=== PATIENT | female | born 1930 | race Caucasian/White ===

== ENCOUNTER 2018-11-06 08:05 | Inpatient (IN) | payer MEDICARE, MEDICAID ==
[~2018-11-06] VITALS: Ht 147.3 cm; Wt 60.0 kg
[~2018-11-06 08:05] MED LIST: DONE10TA7; GABA100C; GLIP5TAB3; MAG-19; METF750T2; MULT1CAP57; OMEP20CA16; UDMOM
[2018-11-06] MEDS ORDERED: SOD CHLORIDE 0.9% 1,950 ML IV ONE (08:30)
--- NOTE | 2018-11-06 09:20 | ERD ---
ER Documentation Chief Complaint Chief Complaint ALOC SINCE THIS AM. BS READ HI. NO TRAUMA. NORMAL MENTAL STATUS PER STAFF HPI 88-year-old female who is full code presents from snf facility per the patient has chronic dementia but it appears to be she is more altered than normal over an unknown timeframe. The patient is noted to have an Accu-Chek greater than 500. The patient is a diabetic. Remainder of HPI is extremely limited. ROS All systems reviewed and are negative except as per history of present illness. Medications Home Meds Reported Medications Acetaminophen* (Acetaminophen*) 500 MG Extra Strength Tablet, 500 MG PO Q6H PRN for FOR FEVER>101, TAB 11/06/18 Magnesium Hydroxide/Al Hydrox (DAREN-MOX ANTACID SUSPENSION) 355 Ml Oral.susp, 30 ML PO Q6H 11/06/18 Megestrol Acetate* (Megace ES*) Unknown Strength Oral.susp, 10 ML PO BID, ML MEGACE 40MG/ML, STOP DATE 11/29/18 11/06/18 Amlodipine Besylate* (Norvasc*) 5 Mg Tablet, 5 MG PO BID, TAB HOLD FOR SBP<110 11/06/18 Memantine* (Namenda*) 10 Mg Tablet, 10 MG PO BID, #60 TAB 11/06/18 Metformin Hcl* (Metformin Hcl*) 500 Mg Tablet, 250 MG PO WITH BREAKFAST DINNE, #60 TAB 11/06/18 Pantoprazole* (Pantoprazole*) 40 Mg Tablet.dr, 40 MG PO AC BREAKFAST, TAB 11/06/18 Hydralazine Hcl* (Hydralazine Hcl*) 25 Mg Tab, 25 MG PO Q8 PRN for FOR SBP>150, #90 TAB 11/06/18 Glucagon,Human Recombinant (Glucagon Emergency Kit) 1 Mg Kit, 1 MG IJ Q8H PRN for FOR GLUCOSE<60MG/DL, KIT 11/06/18 Ondansetron Hcl* (Zofran*) 4 Mg Tab, 4 MG PO Q4H PRN for NAUSEA AND OR VOMITING, TAB 11/06/18 Dextran 70/Hypromellose/Pf (ARTIFICIAL TEARS DROPS) 1 Each Droperette, 1 EACH OP Q12H 11/06/18 Metoprolol Tartrate* (Lopressor*) 25 Mg Tab, 25 MG PO BID, #60 TAB HOLD IF SBP<120 OR HR<60 11/06/18 Insulin Detemir (Levemir Flextouch) 100 Unit/1 Ml Insuln.pen, 10 UNIT SQ QHS, EA 11/06/18 Gabapentin* (Gabapentin*) 300 Mg Capsule, 300 MG PO QHS, #60 CAP 11/06/18 Atorvastatin Calcium (Atorvastatin Calcium) 10 Mg Tablet, 10 MG PO QHS, #30 TAB 11/06/18 Donepezil* (Aricept*) 10 Mg Tablet, 10 MG PO DAILY, TAB 11/06/18 Cholecalciferol (Vitamin D3) 5,000 Unit Tablet, 5000 UNIT PO DAILY, TAB 11/06/18 Multivitamin with Minerals (Multivitamins with Minerals) 1 Each Tablet, 1 EACH PO DAILY, TAB 11/06/18 Folic Acid* (Folic Acid*) 1 Mg Tablet, 1 MG PO DAILY, TAB 11/06/18 Ferrous Sulfate* (Ferrous Sulfate*) 325 Mg Tabec, 325 MG PO DAILY, TAB 11/06/18 Cranberry Fruit Concentrate (CRANBERRY) 450 Mg Capsule, 405 MG PO DAILY, CAP 11/06/18 Docusate Sodium* (Colace*) 100 Mg Capsule, 100 MG PO DAILY, #30 CAP 11/06/18 Aspirin* (Aspirin* EC) 81 Mg Tablet.dr, 81 MG PO DAILY, TAB 11/06/18 Discontinued Reported Medications Donepezil* (Donepezil*) 10 Mg Tablet, 10 MG PO DAILY, #30 TAB 11/06/18 Magnesium Hydroxide* (Meza' MOM*) 30 Ml Susp 10/01/10 Magaldrate/Simethicone* (Mylanta*) 355 Ml Susp 10/01/10 Gabapentin* (Neurontin*) 100 Mg Capsule 10/01/10 Donepezil* (Aricept*) 10 Mg Tablet 10/01/10 Metformin Hcl* (Metformin Hcl* ER) 750 Mg Tab.sr.24h 10/01/10 Glipizide* (Glucotrol*) 5 Mg Tablet 10/01/10 Multivitamins W-Minerals (Multivitamin) 1 Cap Capsule 10/01/10 Omeprazole* (Omeprazole*) 20 Mg Capsule. 10/01/10 Allergies Allergies: Coded Allergies: No Known Allergies (Verified Allergy, Mild, 11/06/18) PMhx/Soc History of Surgery: Yes (S/P (R) BKA) Hx Neurological Disorder: No Hx Respiratory Disorders: No Hx Cardiac Disorders: Yes (htn) Hx Psychiatric Problems: No Hx Miscellaneous Medical Probl: Yes (DM2,anemia,DVT,HTN,OA,foot drop,osteoproros) Hx Alcohol Use: No Hx Substance Use: No Hx Tobacco Use: No Smoking Status: Never smoker FmHx Family History: diabetes Physical Exam Vitals Vital Signs Date Temp Pulse Resp B/P (MAP) Pulse Ox O2 O2 Flow FiO2 Time Delivery Rate 11/06/18 81 21 166/74 100 Nasal 09:38 (104) Cannula 11/06/18 Nasal 2 08:15 Cannula 11/06/18 98.2 85 18 154/89 99 08:10 (110) Physical Exam General: No significant distress Head: Normocephalic, atraumatic. Eyes: Pupils equally reactive, EOM intact ENT: Dry mucous membranes Neck: Supple, no lymphadenopathy Respiratory: Lungs clear bilaterally, no distress Cardiovascular: RRR, no murmurs, rubs, or gallops Abdominal: Soft, non-tender, non-distended, no peritoneal signs : Deferred MSK: Limited movement of all 4 extremities, no bony abnormalities Neurologic: Limited exam, and encephalopathic, limited movement of all 4 extremities Skin: No rash, no significant breakdown Psych: Unable to assess Result Diagram: 11/06/18 0853 11/06/18 0853 Results 24 hrs Laboratory Tests Test 11/06/18 08:10 11/06/18 08:53 11/06/18 08:54 11/06/18 08:55 Blood Gas Blood venous Specimen Source Arterial Blood 11/06/2018 8:50: Date Drawn 11 AM Arterial Blood VENOUS LINE Gas Puncture Site Jim Test N/A Venous Blood pH 7.309 Venous Blood 25.9 mmHG pCO2 (Temp Corrected) Venous Blood pO2 38.4 mmHG (Temp Corrected) Venous Blood 12.7 mmol/L HCO3 Venous Blood 66.7 mmHG Oxygen Saturation Venous Blood -12.2 mmol/L Base Excess Venous Blood 9.0 g/dl Total Hemoglobin Venous Blood 66.2 % Oxyhemoglobin Venous Blood 0.5 % Methemoglobin Carboxyhemoglobi 0.3 % n Blood Gas 37.0 C Temperature Blood Gas ROOM AIR Modality FiO2 21.0 % Blood Gas RT Notified Whom Blood Gas 11/06/2018 8:59: Notified Time 37 AM White Blood 8.3 10^3/ul Count Red Blood Count 3.40 10^6/ul Hemoglobin 10.5 g/dl Hematocrit 34.2 % Mean Corpuscular 100.6 fl Volume Mean Corpuscular 30.9 pg Hemoglobin Mean Corpuscular 30.7 g/dl Hemoglobin Genevieve nt Red Cell 14.2 % Distribution Width Platelet Count 239 10^3/UL Mean Platelet 11.1 fl Volume Immature 0.700 % Granulocytes % Neutrophils % 79.9 % Lymphocytes % 12.6 % Monocytes % 6.4 % Eosinophils % 0.0 % Basophils % 0.4 % Nucleated Red 0.0 /100WBC Blood Cells % Immature 0.060 10^3/ul Granulocytes # Neutrophils # 6.6 10^3/ul Lymphocytes # 1.0 10^3/ul Monocytes # 0.5 10^3/ul Eosinophils # 0.0 10^3/ul Basophils # 0.0 10^3/ul Nucleated Red 0.0 10^3/ul Blood Cells # Prothrombin Time 13.6 Sec Prothrombin Time 1.1 Ratio INR 1.03 International Normalized Ratio Activated 26.4 Sec Partial Thrombop last Time Sodium Level 151 mmol/L Potassium Level 4.6 mmol/L Chloride Level 116 mmol/L Carbon Dioxide 18 mmol/L Level Anion Gap 17 Blood Urea 47 mg/dl Nitrogen Creatinine 1.12 mg/dl Est Glomerular mL/min Filtrat Rate mL/min Glucose Level 751 mg/dl Calcium Level 12.0 mg/dl Phosphorus Level 5.0 mg/dl Magnesium Level 3.1 mg/dl Total Bilirubin 0.9 mg/dl Direct Bilirubin 0.00 mg/dl Indirect 0.9 mg/dl Bilirubin Aspartate Amino 16 IU/L Transf (AST/SGOT ) Alanine < 6 IU/L Aminotransferase (ALT/SGPT) Alkaline 142 IU/L Phosphatase Troponin I 0.054 ng/ml Total Protein 9.1 g/dl Albumin 4.3 g/dl Globulin 4.80 g/dl Albumin/Globulin 0.89 Ratio Free Thyroxine 2.81 ug/ml Index Thyroxine (T4) 5.1 ug/dl Triiodothyronine 55.1 % (T3) Uptake Lactic Acid 3.3 mmol/L Level Bedside Glucose > 595 mg/dL Test 11/06/18 09:03 3/28/19 09:19 11/06/18 10:24 Hemoglobin A1c 11.0 % Urine Color YELLOW Urine Clarity CLEAR Urine pH 5.0 Urine Specific 1.027 [place] Urine Ketones NEGATIVE mg/dL Urine Nitrite NEGATIVE mg/dL Urine Bilirubin NEGATIVE mg/dL Urine NEGATIVE mg/dL Urobilinogen Urine Leukocyte NEGATIVE Margaret/ul Esterase Urine 3 /HPF Microscopic RBC Urine 1 /HPF Microscopic WBC Urine Bacteria FEW /HPF Urine Hemoglobin 2+ mg/dL Urine Glucose 3+ mg/dL Urine Total 2+ mg/dl Protein Bedside Glucose 580 mg/dL Current Medications Medications Dose Sig/Sarah Start Time Status Last (Trade) Ordered Route PRN Stop Time Admin Dose Reason Admin Sodium 1,950 ml @ BOLUS X1 11/06/18 DC 11/06/18 Chloride 975 mls/hr ONCE IV 08:30 08:48 11/06/18 10:29 Cefepime HCl 50 ml @ ONCE STAT 11/06/18 DC 11/06/18 100 mls/hr IVPB 09:41 09:49 11/06/18 10:10 Vancomycin 250 ml @ ONCE ONCE 11/06/18 DC 11/06/18 HCl 125 mls/hr IVPB 10:00 10:58 11/06/18 11:59 Insulin 10 unit ONCE ONCE 11/06/18 DC 11/06/18 Human SC 10:30 10:26 Lispro 11/06/18 10:37 (Humalog) Ondansetron 4 mg BRIDGE ORDER 11/06/18 HCl (Zofran PRN IV 12:00 Inj) NAUSEA/VOMITI 11/07/18 11:59 NG 650 mg ER BRIDGE 11/06/18 Acetaminophen PRN PO 12:00 (Tylenol .MILD PAIN 11/07/18 11:59 Tab) 1-3 OR TEMP Fentanyl 100 mcg ONCE ONCE 11/06/18 DC (Sublimaze) IV 12:00 11/06/18 12:00 Midazolam 2 mg ONCE ONCE 11/06/18 DC HCl IV 12:00 (Versed) 11/06/18 12:00 Procedures/MDM EKG, MONITORS, & DIAGNOSTIC IMAGING: EKG: I reviewed and interpreted a 12-lead EKG. Rhythm: Normal sinus rhythm ST Changes: No contiguous ST segment elevations T waves: No contiguous T wave inversions Impression: [No evidence of acute cardiac ischemia]. Chest x-ray: I reviewed and interpreted a 1 view of the chest Mediastinum: No enlargement Cardiac silhouette: No cardiomegaly Airspace: Clear lung martinez bilaterally without evidence of pneumothorax Bones: No evidence of fracture CT brain: No acute process per radiologist read LAB INTERPRETATION: I reviewed the laboratory testing and it shows no significant leukocytosis Hyperglycemia, significant but no true definition of diabetic ketoacidosis given that the patient's pH is greater than 7.3, bicarb is at 18, no ketonuria MEDICAL DECISION MAKING: Patient presents with altered mental status, snf facility, hyperglycemia. Differential is extremely broad and includes diabetic ketoacidosis. Patient will benefit from sepsis screening and evaluate for potential sources of infection including urinary tract infection, pneumonia. CT of the brain will be appropriate given altered mental status though patient's neurologic baseline seems to be minimal at best. Patient will benefit from inpatient hospitalization, fluid resuscitation. The patient is currently protecting her airway and does not require intubation. She is full code based on documentation from snf facility. ER COURSE: * Patient was treated with fluid resuscitation. Lactic acid elevation is likely secondary to dehydration. However, blood cultures were taken the patient given broad-spectrum antibiotics. No clear source of infection. This is empiric treatment. Patient does not meet the diagnostic threshold for sepsis in the emergency room setting * Patient has significant hyperglycemia. Consider possible hyperosmolar state versus dehydration. A1c is significantly elevated raising concern of care at the facility. This was relayed to the admitting doctor. chemical research worker involvement is likely necessary. * The patient does not meet true diagnostic threshold for diabetic ketoacidosis. The patient is certainly borderline. I have considered using an insulin drip in this patient but the patient is likely to close and has significant risk of complications related to this therapy I believe fluid resuscitation, subcutaneous Humalog would be most appropriate management. I discussed this with the admitting physician who is additionally agreeable. * Patient's hemodynamics remained stable. She is protecting her airway and will be admitted. CONSULTATION: [None] DISPOSITION PLAN: Accepting care team and consultations: I discussed the current laboratory data, diagnostic imaging and emergency care provided. Admitting team: Dr. Subramanian on-call for patient's primary care physician Admitting team indication: Insurance directed Departure Diagnosis: Primary Impression: Altered level of consciousness Additional Impressions: Hyperglycemia Dehydration Lactic acidosis Condition: NGUYEN Serrano MD Nov 06, 2018 09:20
[2018-11-06] MEDS ORDERED: CEFEPIME 2GM/50 ML (PMX) 50 ML IVPB STA (09:41)
[2018-11-06] MEDS ORDERED: VANCOMYCIN 1 GM (PMX) 250 ML IVPB ONE (10:00)
[2018-11-06] MEDS ORDERED: INSULIN LISPRO 100 UNIT/ML VIAL SC ONE (10:30)
[2018-11-06] MEDS ORDERED: ASPI-817 PO (10:42)
[2018-11-06] MEDS ORDERED: DOCU-144 PO (10:42)
[2018-11-06] MEDS ORDERED: CRAN450C PO (10:47)
[2018-11-06] MEDS ORDERED: FER325 PO (10:48)
[2018-11-06] MEDS ORDERED: DONE10TA7 PO ×2 (10:48→10:50)
[2018-11-06] MEDS ORDERED: FOLI-49 PO (10:49)
[2018-11-06] MEDS ORDERED: MULT-105 PO (10:49)
[2018-11-06] MEDS ORDERED: CHOL500010 PO (10:50)
[2018-11-06] MEDS ORDERED: ATOR10TA65 PO (10:51)
[2018-11-06] MEDS ORDERED: GABA300C16 PO (10:51)
[2018-11-06] MEDS ORDERED: INSU100I27 SQ (10:52)
[2018-11-06] MEDS ORDERED: METO-448 PO (10:53)
[2018-11-06] MEDS ORDERED: DEXT1DRO7 OP (10:54)
[2018-11-06] MEDS ORDERED: ONDA4TAB13 PO (10:55)
[2018-11-06] MEDS ORDERED: GLUC1KIT IJ (10:56)
[2018-11-06] MEDS ORDERED: HYDR-3671 PO (10:57)
[2018-11-06] MEDS ORDERED: MEMA10TA PO (10:58)
[2018-11-06] MEDS ORDERED: METF500T24 PO (10:58)
[2018-11-06] MEDS ORDERED: PANT40TA4 PO (10:58)
[2018-11-06] MEDS ORDERED: AMLO5TAB4 PO (11:00)
[2018-11-06] MEDS ORDERED: MEGE625O PO (11:02)
[2018-11-06] MEDS ORDERED: [UNRECOGNIZED DRUG - CODE] PO (11:06)
[2018-11-06] MEDS ORDERED: ACET-141 PO (11:07)
[2018-11-06] MEDS ORDERED: FENTAnyl 50 MCG/ML VIAL IV ONE (12:00)
[2018-11-06] MEDS ORDERED: ACETAMINOPHEN 325 MG TAB PO PRN ×2 (12:00→19:00)
[2018-11-06] MEDS ORDERED: ONDANSETRON 4 MG INJ IV PRN ×2 (12:00→19:00)
[2018-11-06] MEDS ORDERED: MIDAZOLAM 1 MG/ML 2 ML INJ IV ONE (12:00)
[2018-11-06] MEDS: SOD CHLORIDE 0.9% 1,000 ML IV SCH (18:56)
[2018-11-06] MEDS ORDERED: NACL 0.9% 3 ML SYG IV SCH (19:00)
[2018-11-06 19:06] VITALS: PULSE 86
--- NOTE | 2018-11-06 19:41 | HP ---
DATE OF ADMISSION: 11/06/2018 SUBJECTIVE: The patient is an 88-year-old female brought in from intermediate facility w ith altered mental status. The patient has history of dementia and long history of diabetes mellitus , right below-knee amputation in 09/2010. The patient is essentially unable to provide any history a t this time. CURRENT MEDICATIONS: Include: 1. Megace. 2. Amlodipine 5 mg daily. 3. Namenda 10 mg b.i.d. 4. Metformin 500 mg half tablet with breakfast. 5. Protonix 40 mg daily. 6. Hydralazine 25 mg q.8 hours p.r.n. 7. Lopressor 25 mg b.i.d. 8. Levemir insulin 10 units subcutaneous at bedtime. 9. Gabapentin 300 mg at bedtime. 10. Atorvastatin 10 mg daily. 11. Aricept 10 mg daily. 12. Aspirin 81 mg daily. PHYSICAL EXAMINATION: GENERAL: The patient is appearing comfortable. The patient does not respond to any questions at thi s time. VITAL SIGNS: Temperature is 98.2, blood pressure 154/89, O2 saturation 99% on 2 liters nasal cannula . HEENT: Tongue is coated dry. NECK: Supple. No thyromegaly, bruits or lymphadenopathy. LUNGS: Clinically clear. HEART: S1, S2 heard. No definite gallops. ABDOMEN: Soft, nontender, no hepatosplenomegaly. EXTREMITIES: No edema. Left lower extremity appears cold to touch. Pedals are diminished dorsalis pedis on the left, status post right below knee amputation on the right. PELVIC, RECTAL BREAST: Deferred due to patient's discomfort. LABORATORY DATA: Initial WBC count 8.3, hematocrit 34.2, platelet count is 239,000. Sodium 151, pot assium 4.6, BUN 47, creatinine 1.12. Glucose in the emergency room was 751, after insulin management it is down to 473 at 1447 hours. Lactic acid was 3.0. UA shows few bacteria. Anion gap is 17, CO2 of 18. DIAGNOSTIC DATA: Chest x-ray shows normal sized heart, lung martinez clear. CT of the brain shows no hemorrhage or infarct, moderate to marked intracranial atherosclerosis, chronic small vessel ischemic changes noted. IMPRESSION: 1. Uncontrolled hyperglycemia with mild diabetic ketoacidosis, lactic acidosis. 2. Hypernatremia. 3. Dehydration. 4. Possible underlying sepsis with source likely urinary tract. PLAN: Aggressive hydration. Observe for sepsis and empiric antibiotic therapy. Close monitoring of blood glucose levels. Treat with insulin. Endocrine consultation will be obtained if necessary. W e will hold glipizide and metformin for now. Dictated By: SYD BEVERLY MD SR/NTS Conf#: [id number] DID#: [id number]
[2018-11-06 20:00] VITALS: BP 142/74; PULSE 76; PULSE 87; RESP 17; Ht 147.3 cm; Wt 60.0 kg
[2018-11-06] MEDS ORDERED: INSULIN ASPART [NOVOLOG] 3 ML PEN SC ONE (23:00)
[2018-11-06] MEDS ORDERED: GLUCOSE GEL 15 GRAM TUBE BUCCAL PRN (23:30)
[2018-11-06] MEDS ORDERED: GLUCAGON 1 MG INJ IM PRN (23:30)
[2018-11-06] MEDS ORDERED: DEXTROSE 50% 50 ML SYRINGE IV PRN ×2 (23:30)
[2018-11-06] MEDS ORDERED: GLUCOSE GEL 15 GRAM TUBE PO PRN ×2 (23:30)
[2018-11-07] VITALS (11 sets, daily range): BP systolic 128–181; BP diastolic 62–85; PULSE 80–96; RESP 18–20
[2018-11-07] MEDS: ACCU-CHEK XX SCH (02:00)
[2018-11-07] MEDS: CEFEPIME 1GM/50 ML (PMX) 50 ML IVPB SCH ×3 (02:32→21:15)
[2018-11-07] MEDS: SOD CHLORIDE 0.9% 1,000 ML IV SCH ×2 (04:56→15:01)
[2018-11-07] MEDS: PANTOPRAZOLE (EC) 40 MG TAB PO SCH (06:00)
[2018-11-07] MEDS ORDERED: LORAZEPAM 2 MG INJ IV PRN (08:30)
[2018-11-07] MEDS: INSULIN ASPART [NOVOLOG] 3 ML PEN SC SCH ×4 (08:43→21:25)
[2018-11-07] MEDS: ENOXAPARIN 30 MG/0.3 ML SYG SC SCH (08:56)
[2018-11-07] MEDS: AMLODIPINE 5 MG TAB PO SCH (08:58)
[2018-11-07] MEDS ORDERED: hydrALAzine 20 MG INJ IV PRN (13:30)
[2018-11-07] MEDS ORDERED: COLLAGENASE 5 GM (UD JAR) TOP ONE (17:30)
[2018-11-07] MEDS: INSULIN GLARGINE [LANTus] (100 UNITS/ML) SYG SC SCH (21:24)
[2018-11-08] VITALS (11 sets, daily range): BP systolic 142–168; BP diastolic 67–90; PULSE 81–97; RESP 18–22
[2018-11-08] MEDS: SOD CHLORIDE 0.9% 1,000 ML IV SCH ×3 (00:25→21:17)
[2018-11-08] MEDS: ACCU-CHEK XX SCH (02:42)
[2018-11-08] MEDS: PANTOPRAZOLE (EC) 40 MG TAB PO SCH (05:51)
[2018-11-08] MEDS: INSULIN ASPART [NOVOLOG] 3 ML PEN SC SCH ×4 (07:47→21:16)
[2018-11-08] MEDS: CEFEPIME 1GM/50 ML (PMX) 50 ML IVPB SCH ×2 (09:06→20:00)
[2018-11-08] MEDS: ENOXAPARIN 30 MG/0.3 ML SYG SC SCH (09:14)
[2018-11-08] MEDS: AMLODIPINE 5 MG TAB PO SCH (09:16)
[2018-11-08] MEDS: INSULIN GLARGINE [LANTus] (100 UNITS/ML) SYG SC SCH (19:58)
[2018-11-08] MEDS: BALSAM PERU/CASTOR OIL 60 GM TUBE TOP SCH (21:13)
--- NOTE | 2018-11-08 21:26 | PN ---
DATE: 11/08/2018 SUBJECTIVE: The patient has been intermittently agitated. P.o. intake has been good. When question ed repeatedly denies any pain. OBJECTIVE: VITAL SIGNS: Temperature 98.0, blood pressure , O2 sat 96% on room air. HEENT: Head is normocephalic. Mild pallor without cyanosis. LUNGS: Clinically clear. HEART: S1, S2 heard with no definite gallops. ABDOMEN: Soft, nontender, no hepatosplenomegaly. EXTREMITIES: Left lower extremity no edema. Homans negative. LABORATORY DATA: Sodium 156, potassium 4.4, BUN 28, creatinine 0.16, glucose 208, 166 and 186 today. Magnesium is 2.4. Urine culture no growth. IMPRESSION: 1. Diabetes mellitus type 2, uncontrolled with lactic acidosis. No evidence of ketosis. 2. Hypernatremia. 3. Dehydration with prerenal azotemia. PLAN: We will continue IV hydration. Continue insulin management. Empiric antibiotic therapy and t he patient could be transferred to med-surg. Dictated By: SYD BEVERLY MD, SR/STAN Conf#: [id number] DID#: [id number]
[2018-11-09 02:00] VITALS: BP 141/62; PULSE 83; RESP 18
[2018-11-09] MEDS: ACCU-CHEK XX SCH (02:14)
[2018-11-09] MEDS: PANTOPRAZOLE (EC) 40 MG TAB PO SCH (06:00)
[2018-11-09] MEDS: SOD CHLORIDE 0.9% 1,000 ML IV SCH (06:43)
[2018-11-09] MEDS: INSULIN ASPART [NOVOLOG] 3 ML PEN SC SCH ×4 (08:00→21:15)
[2018-11-09 09:10] VITALS: BP 144/73; PULSE 72; RESP 17
[2018-11-09] MEDS: CEFEPIME 1GM/50 ML (PMX) 50 ML IVPB SCH ×2 (09:11→21:10)
[2018-11-09] MEDS: AMLODIPINE 5 MG TAB PO SCH (09:14)
[2018-11-09] MEDS: ENOXAPARIN 30 MG/0.3 ML SYG SC SCH (09:16)
[2018-11-09 14:38] VITALS: BP 141/66; PULSE 82; RESP 17
[2018-11-09] MEDS: POTASSIUM CHLORIDE 40 MEQ in SOD CHLORIDE 0.9% 1,000 ML IV SCH (16:33)
[2018-11-09] MEDS: BALSAM PERU/CASTOR OIL 60 GM TUBE TOP SCH ×2 (17:35→21:19)
--- NOTE | 2018-11-09 19:28 | PN ---
DATE: 11/09/2018 SUBJECTIVE: The patient is more responsive today, less agitated. P.o. intake is good. PHYSICAL EXAMINATION: VITAL SIGNS: Temperature 98.4, blood pressure is 141/66, O2 sat is 97% on room air. CHEST: Clinically clear. HEART: S1, S2 with definite gallops. ABDOMEN: Soft, nontender, no hepatosplenomegaly. EXTREMITIES: No edema. LABORATORY DATA: INR . WBC count 9.4, hematocrit 34.8, platelet count is 168,000. Sodium 147, potassium 3.1, BUN 17, creatinine 0.59, glucose levels in the normal glycemic range. IMPRESSION: 1. Delirium secondary to diabetes mellitus type 2, uncontrolled. 2. Lactic acidosis. 3. Dehydration with hypernatremia. 4. Hypokalemia. PLAN: Replace potassium. Recheck labs in a.m. and observe. Dictated By: SYD BEVERLY MD, SR/STAN Conf#: [id number] DID#: [id number]
[2018-11-09 20:00] VITALS: BP 135/74; PULSE 73; RESP 18
[2018-11-09] MEDS: INSULIN GLARGINE [LANTus] (100 UNITS/ML) SYG SC SCH (21:09)
[2018-11-10] MEDS: ACCU-CHEK XX SCH (02:00)
[2018-11-10] MEDS: POTASSIUM CHLORIDE 40 MEQ in SOD CHLORIDE 0.9% 1,000 ML IV SCH (02:58)
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
[2018-11-10] MEDS: PANTOPRAZOLE (EC) 40 MG TAB PO SCH (07:25)
[2018-11-10] MEDS: INSULIN ASPART [NOVOLOG] 3 ML PEN SC SCH ×2 (08:00→12:00)
[2018-11-10 08:31] VITALS: BP 140/69; PULSE 82; RESP 17
[2018-11-10] MEDS: ENOXAPARIN 30 MG/0.3 ML SYG SC SCH (09:00)
[2018-11-10] MEDS: BALSAM PERU/CASTOR OIL 60 GM TUBE TOP SCH (09:00)
[2018-11-10] MEDS: CEFEPIME 1GM/50 ML (PMX) 50 ML IVPB SCH (09:01)
[2018-11-10] MEDS: AMLODIPINE 5 MG TAB PO SCH (09:38)
[2018-11-10 15:08] VITALS: BP 134/75; PULSE 72
--- NOTE | 2018-11-11 02:44 | DS ---
DATE OF ADMISSION: 11/06/2018 DATE OF DISCHARGE: 11/10/2018 FINAL DIAGNOSES: 1. Diabetes mellitus type 2, uncontrolled with lactic acidosis. 2. Severe hypernatremia with dehydration with prerenal azotemia. 3. Advanced dementia. 4. Peripheral vascular disease, status post right below-knee amputation. HOSPITAL COURSE: The patient is an 88-year-old female brought from a convalescent home with altered mental status. The patient has prior history of long diabetes mellitus type 2 and right bel ow knee amputation in 2010. The patient was unable to provide any cogent history. The patient was f ound to be agitated periodically. Afebrile. O2 sats 99% on 2 liters nasal cannula. Chest exam was clear. Initial WBC count 8.3, hematocrit 34.2. Sodium is 151, BUN of 47, creatinine of 1.2 and the glucose was 751. The patient was begun on intravenous hydration, treated with subcutaneous insulin. Lantus was added. Was observed for sepsis. Blood cultures and urine cultures remained negative. T he patient was maintained on empiric course of cefepime. The patient had significantly improved. He r sodium was 142, potassium 4.1, BUN of 15, creatinine 0.57, glucose levels remained in the normal gl ycemic range on 11/10/2018 and patient was discharged back to the convalescent home in much improved condition with a change in the insulin regimen with 10 units of Lantus along with NovoLog insulin per sliding scale. DISCHARGE CONDITION: Much improved. Dictated By: SYD BEVERLY MD, SR/STAN Conf#: [id number] DID#: [id number]
== END 2018-11-10 15:19 | DRG 637 ==
LOC: E/R 08:05 → 6WM 11:40 → PP2 11-08 18:14
PROVIDERS: ADMIT Internal Medicine; ATTEND Internal Medicine
DX: E11.65 Type 2 diabetes mellitus with hyperglycemia (principal); E11.10 Type 2 diabetes mellitus with ketoacidosis without coma; E11.00 Type 2 diabetes mellitus with hyperosmolarity without nonketotic hyperglycemic-hyperosmolar coma (NKHHC); E87.2 Acidosis; E87.0 Hyperosmolality and hypernatremia; F05 Delirium due to known physiological condition; E86.0 Dehydration; E87.6 Hypokalemia; Z89.511 Acquired absence of right leg below knee; Z79.4 Long term (current) use of insulin; Z79.82 Long term (current) use of aspirin
CPT/HCPCS: 36415; 70450; 71045; 80048; 80053; 81001; 82803; 82962; 83036; 83605; 83735; 84100; 84436; 84479; 84484; 85025; 85610; 85730; 87040; 87086; 93005; 96365; 96372; 96375; A4310; J0692; J1650; J1815; J2060; J3370; J3480; J7030

== ENCOUNTER 2019-02-14 17:09 | Inpatient (IN) | payer MEDICARE, OTHER ==
[~2019-02-14] VITALS: Ht 157.5 cm; Wt 54.9 kg
[~2019-02-14 17:09] MED LIST changes: +ACET-141 PO; +AMLO5TAB4 GTB; +ASPI-817 PO; +ATOR10TA65 GTB; +CHOL500010 PO; +CRAN450C PO; +DEXT1DRO7 OP; +DOCU-144 PO; -DONE10TA7; +DONE10TA7 GTB; +ETOMIDATE 20 MG INJ ONE; +FER325 PO; +FOLI-49 PO; -GABA100C; +GABA300C16 GTB; -GLIP5TAB3; +GLUC1KIT IJ; +HYDR-3671 PO; +INSU100I27 SQ; -MAG-19; +MEGE625O PO; +MEMA10TA GTB; +METF500T24 PO; -METF750T2; +METO-448 PO; +MULT-105 PO; -MULT1CAP57; -OMEP20CA16; +ONDA4TAB13 PO; +PANT40TA4 PO; +ROCURONIUM 50 MG INJ ONE; -UDMOM; +[UNRECOGNIZED DRUG - CODE] PO
[2019-02-14] MEDS ORDERED: CEFEPIME 2GM/50 ML (PMX) 50 ML IVPB STA (17:13)
[2019-02-14] MEDS ORDERED: ACETAMINOPHEN 650 MG SUPP PR STA (17:13)
[2019-02-14] MEDS ORDERED: [UNRECOGNIZED DRUG - OTHER] IV ONE (17:30)
[2019-02-14] MEDS ORDERED: VANCOMYCIN 1 GM (PMX) 250 ML IVPB ONE (17:30)
[2019-02-14] MEDS ORDERED: SOD CHLORIDE 0.9% 1,950 ML IV ONE (17:30)
[2019-02-14] MEDS ORDERED: [UNRECOGNIZED DRUG - OTHER] IV ONE (17:30)
[2019-02-14] MEDS ORDERED: SOD CHLORIDE 0.9% IV ONE ×2 (17:30)
[2019-02-14] MEDS ORDERED: CHOL100062 GTB (17:37)
[2019-02-14] MEDS ORDERED: ASC500 GTB (17:38)
[2019-02-14] MEDS ORDERED: LISI10TA2 GTB (17:39)
[2019-02-14] MEDS ORDERED: CLON1PAT2 TD (17:40)
[2019-02-14] MEDS ORDERED: IPRA3AMP29 INHALATION (17:43)
[2019-02-14] MEDS ORDERED: OMEP20CA16 GTB (17:43)
--- NOTE | 2019-02-14 17:44 | ERD ---
ER Documentation Chief Complaint Chief Complaint aloc. low o2 sat. sob HPI 88-year-old female presenting with increased altered mental status, hypotension, and low oxygen saturations brought in from her nursing home facility for e valuation. Patient is a full code. Otherwise patient is obtunded and not answering any questions. ROS Unable to obtain due to altered mental status Medications Home Meds Reported Medications Acetaminophen* (Acetaminophen*) 325 Mg Tablet, 650 MG GTB Q6H PRN for MILD PAIN LEVEL 1-3, #30 TAB AND FEVER>101F 02/14/19 Clonidine Hcl* (Clonidine Hcl*) 0.1 Mg Tab, 0.1 MG GTB Q6, TAB 02/14/19 Docusate Sodium* (Docusate Sodium* Liq) 50 Mg/5 Ml Liquid, 10 ML GTB DAILY, ML 02/14/19 Omeprazole* (Omeprazole*) 20 Mg Capsule.dr, 20 MG GTB DAILY, #30 CAP 02/14/19 Ipratropium-Albuterol (Ipratropium-Albuterol) 0.5-3 Mg/3 Ml Ampul.neb, 3 ML INHALATION Q4H PRN for NEEDED, #30 VIAL 02/14/19 Clonidine Patch (CLONIDINE PATCH) Unknown Strength Patch, 1 PATCH TD Q SAT, #4 PATCH.WK 0.1MG/24HR 02/14/19 Lisinopril* (Lisinopril*) 10 Mg Tablet, 10 MG GTB DAILY, #30 TAB 02/14/19 Ascorbic Acid (Vitamin C) 500 Mg Tab, 500 MG GTB DAILY, TAB 02/14/19 Cholecalciferol* (Vitamin D3*) 1,000 Unit Tablet, 1000 UNIT GTB DAILY, TAB 02/14/19 Amlodipine Besylate* (Norvasc*) 5 Mg Tablet, 5 MG GTB BID, TAB HOLD FOR SBP<110 11/06/18 Memantine* (Namenda*) 10 Mg Tablet, 10 MG GTB BID, #60 TAB 11/06/18 Glucagon,Human Recombinant (Glucagon Emergency Kit) 1 Mg Kit, 1 MG IJ NEEDED PRN for FOR GLUCOSE<60MG/DL, KIT 11/06/18 Insulin Detemir (Levemir Flextouch) 100 Unit/1 Ml Insuln.pen, 15 UNIT SQ BID, EA 11/06/18 Gabapentin* (Gabapentin*) 300 Mg Capsule, 300 MG GTB QHS, #60 CAP 11/06/18 Atorvastatin Calcium (Atorvastatin Calcium) 10 Mg Tablet, 10 MG GTB QHS, #30 TAB 11/06/18 Donepezil* (Aricept*) 10 Mg Tablet, 10 MG GTB QPM, TAB 11/06/18 Discontinued Reported Medications Acetaminophen* (Acetaminophen*) 500 MG Extra Strength Tablet, 500 MG PO Q6H PRN for FOR FEVER>101, TAB 11/06/18 Magnesium Hydroxide/Al Hydrox (DAREN-MOX ANTACID SUSPENSION) 355 Ml Oral.susp, 30 ML PO Q6H 11/06/18 Megestrol Acetate* (Megace ES*) Unknown Strength Oral.susp, 10 ML PO BID, ML MEGACE 40MG/ML, STOP DATE 11/29/18 11/06/18 Metformin Hcl* (Metformin Hcl*) 500 Mg Tablet, 250 MG PO WITH BREAKFAST DINNE, #60 TAB 11/06/18 Pantoprazole* (Pantoprazole*) 40 Mg Tablet.dr, 40 MG PO AC BREAKFAST, TAB 11/06/18 Hydralazine Hcl* (Hydralazine Hcl*) 25 Mg Tab, 25 MG PO Q8 PRN for FOR SBP>150, #90 TAB 11/06/18 Ondansetron Hcl* (Zofran*) 4 Mg Tab, 4 MG PO Q4H PRN for NAUSEA AND OR VOMITING, TAB 11/06/18 Dextran 70/Hypromellose/Pf (ARTIFICIAL TEARS DROPS) 1 Each Droperette, 1 EACH OP Q12H 11/06/18 Metoprolol Tartrate* (Lopressor*) 25 Mg Tab, 25 MG PO BID, #60 TAB HOLD IF SBP<120 OR HR<60 11/06/18 Cholecalciferol (Vitamin D3) 5,000 Unit Tablet, 5000 UNIT PO DAILY, TAB 11/06/18 Multivitamin with Minerals (Multivitamins with Minerals) 1 Each Tablet, 1 EACH PO DAILY, TAB 11/06/18 Folic Acid* (Folic Acid*) 1 Mg Tablet, 1 MG PO DAILY, TAB 11/06/18 Ferrous Sulfate* (Ferrous Sulfate*) 325 Mg Tabec, 325 MG PO DAILY, TAB 11/06/18 Cranberry Fruit Concentrate (CRANBERRY) 450 Mg Capsule, 405 MG PO DAILY, CAP 11/06/18 Docusate Sodium* (Colace*) 100 Mg Capsule, 100 MG PO DAILY, #30 CAP 11/06/18 Aspirin* (Aspirin* EC) 81 Mg Tablet.dr, 81 MG PO DAILY, TAB 11/06/18 Allergies Allergies: Coded Allergies: No Known Allergies (Verified Allergy, Mild, 02/14/19) PMhx/Soc Medical and Surgical Hx: Unable to obtain History of Surgery: Yes (S/P (R) BKA) Hx Neurological Disorder: Yes (Alzheimer's dementia) Hx Respiratory Disorders: No Hx Cardiac Disorders: Yes (htn) Hx Psychiatric Problems: No Hx Miscellaneous Medical Probl: Yes (Diabetes) Hx Alcohol Use: No Hx Substance Use: No Hx Tobacco Use: No FmHx Unable to obtain Physical Exam Vitals Vital Signs Date Temp Pulse Resp B/P (MAP) Pulse Ox O2 O2 Flow FiO2 Time Delivery Rate 02/14/19 77 14 100 50 21:29 02/14/19 97.1 64 15 106/52 80 Mechanical 6.0 21:00 (70) Ventilator 02/14/19 72 18 95/55 (68) 82 Mechanical 6.0 20:00 Ventilator 02/14/19 74 14 99/53 (68) 90 Mechanical 6.0 19:00 Ventilator 02/14/19 73 27 100 50 19:00 02/14/19 71 14 99/53 (68) 89 Mechanical 19:00 Ventilator 02/14/19 98.3 89 16 104/46 100 Room Air 6.0 18:35 (65) Mask 02/14/19 75 14 100 50 18:31 02/14/19 98.1 78 14 104/62 100 Mask 6.0 18:30 (76) Mechanical Ventilator 02/14/19 97 29 88/46 (60) 100 Mask 6.0 17:22 02/14/19 Simple 6 17:21 Mask 02/14/19 98.3 104 31 82/48 (59) 89 17:15 Physical Exam Const: Appears toxic, clammy, in mild respiratory distress, with oxygen mask in place Head: Atraumatic Eyes: Normal Conjunctiva ENT: Dry mucous membranes. Airway patent Neck: Full range of motion. No meningismus. Resp: Rhonchi bilaterally, diminished breath sounds bilaterally Cardio: Tachycardic with regular rhythm, no murmurs Abd: Soft, non distended. No grimacing or response to palpation. normal bowel sounds Skin: No petechiae or rashes Back: No midline or flank tenderness Ext: Right BKA. No cyanosis, or edema Neur: Obtunded, not arousable, GCS 3, no purposeful movements Psych: Normal Mood and Affect Result Diagram: 02/14/19 1720 02/14/19 1720 Results 24 hrs Laboratory Tests Test 02/14/19 17:13 02/14/19 17:15 02/14/19 17:20 02/14/19 17:45 Bedside Glucose 224 mg/dL POC Venous 1.8 mmol/L Lactate White Blood 15.3 10^3/ul Count Red Blood Count 3.74 10^6/ul Hemoglobin 10.9 g/dl Hematocrit 35.5 % Mean 94.9 fl Corpuscular Volume Mean 29.1 pg Corpuscular Hemoglobin Mean 30.7 g/dl Corpuscular Hemoglobin Conc ent Red Cell 15.0 % Distribution Width Platelet Count 404 10^3/UL Mean Platelet 10.3 fl Volume Immature 0.600 % Granulocytes % Neutrophils % 85.0 % Lymphocytes % 8.0 % Monocytes % 5.8 % Eosinophils % 0.2 % Basophils % 0.4 % Nucleated Red 0.0 /100WBC Blood Cells % Immature 0.090 10^3/ul Granulocytes # Neutrophils # 13.0 10^3/ul Lymphocytes # 1.2 10^3/ul Monocytes # 0.9 10^3/ul Eosinophils # 0.0 10^3/ul Basophils # 0.1 10^3/ul Nucleated Red 0.0 10^3/ul Blood Cells # Prothrombin 14.6 Sec Time Prothrombin 1.1 Time Ratio INR 1.13 International Normalized Rati o Activated 34.6 Sec Partial Thrombo plast Time Sodium Level 150 mmol/L Potassium Level 5.1 mmol/L Chloride Level 109 mmol/L Carbon Dioxide 32 mmol/L Level Anion Gap 9 Blood Urea 89 mg/dl Nitrogen Creatinine 1.45 mg/dl Est Glomerular mL/min Filtrat Rate mL/min Glucose Level 230 mg/dl Calcium Level 9.9 mg/dl Total Bilirubin 0.4 mg/dl Direct 0.00 mg/dl Bilirubin Indirect 0.4 mg/dl Bilirubin Aspartate Amino 72 IU/L Transf (AST/SGO T) Alanine 42 IU/L Aminotransferas e (ALT/SGPT) Alkaline 125 IU/L Phosphatase Troponin I 0.064 ng/ml Total Protein 7.5 g/dl Albumin 3.1 g/dl Globulin 4.40 g/dl Albumin/Globuli 0.70 n Ratio Urine Color CONI Urine Clarity TURBID Urine pH 5.0 Urine Specific 1.015 [place] Urine Ketones NEGATIVE mg/dL Urine Nitrite NEGATIVE mg/dL Urine Bilirubin NEGATIVE mg/dL Urine 1+ mg/dL Urobilinogen Urine Leukocyte 3+ Margaret/ul Esterase Urine 13 /HPF Microscopic RBC Urine > 182 /HPF Microscopic WBC Urine Squamous MODERATE /HPF Epithelial Cell s Urine Bacteria FEW /HPF Urine Yeast FEW /HPF (Budding) Urine NEGATIVE mg/dL Hemoglobin Urine Glucose NEGATIVE mg/dL Urine Total 2+ mg/dl Protein Test 02/14/19 19:00 02/14/19 19:16 02/14/19 21:08 02/14/19 21:12 Blood Gas Blood arterial Blood arterial Specimen Source Arterial Blood 02/14/2019 7:30:1 02/14/2019 9:15:5 Date Drawn 7 PM 3 PM Arterial Blood 7.374 7.395 pH (Temp corrected ) Arterial Blood 44.4 mmhg 40.6 mmhg pCO2 (Temp correct) Arterial Blood 406.5 mmHG 43.4 mmHG pO2 (Temp corrected ) Arterial Blood 25.3 mmol/L 24.3 mmol/L HCO3 Arterial Blood -0.1 mmol/L -0.5 mmol/L Base Excess Arterial Blood 99.9 mmHG 75.8 mmHG Oxygen Saturati on Jim Test N/A N/A Arterial Blood Right Brachial LB Gas Puncture Site Arterial 0.1 % 0.3 % Blood Carboxyhe moglobin Arterial Blood 0.2 % 0.1 % Methemoglobin Blood Gas A-a 262.1 mmHg 267.4 mmHg O2 Differential Oxyhemoglobin 99.6 % 75.5 % Percent Blood Gas 37.0 C 37.0 C Temperature Blood Gas 14.0 14.0 Respiration Rate Blood Gas 14 15 Actual Respiration Rat e Blood Gas VENT - AC VENT - AC Modality FiO2 100.0 % 50.0 % Blood Gas Tidal 450.0 mL 450.0 mL Volume Blood Gas Low 5.0 cmH2O 0 cmH2O PEEP Setting Blood Gas UP MR Notified Whom Blood Gas 02/14/2019 7:40:2 02/14/2019 9:25:5 Notified Time 3 PM 6 PM Lactic Acid 1.6 mmol/L 1.5 mmol/L Level Blood Gas 35.0 Inspiratory Pressure Blood Gas EKPerez ASCENCIO MD Critical Value Read Back Test 02/14/19 21:13 Bedside Glucose 156 mg/dL Current Medications Medications Dose Sig/Sarah Start Time Status Last (Trade) Ordered Route PRN Stop Time Admin Dose Reason Admin Sodium 2,950 ml @ BOLUS X1 02/14/19 DC 02/14/19 Chloride 0 mls/hr ONCE IV 17:30 02/14/19 17:53 1950 17:30 ml/Sodium Chloride 650 mg ONCE STAT 02/14/19 DC 02/14/19 Acetaminophen VA 17:13 02/14/19 18:00 (Tylenol 17:14 Supp) Cefepime HCl 50 ml @ ONCE STAT 02/14/19 DC 02/14/19 100 mls/hr IVPB 17:13 02/14/19 18:00 17:42 Vancomycin 250 ml @ ONCE ONCE 02/14/19 DC 02/14/19 HCl 125 mls/hr IVPB 17:30 02/14/19 18:50 19:29 Sodium 1,950 ml @ BOLUS X1 02/14/19 DC Chloride 0 mls/hr ONCE IV 17:30 02/14/19 1950 17:30 ml/Sodium Chloride Sodium 1,950 ml @ BOLUS X1 02/14/19 DC 02/14/19 Chloride 0 mls/hr ONCE IV 17:30 02/14/19 17:57 17:31 250 ml @ TITRATE IV 02/14/19 DC Norepinephrin 1.875 mls/ 18:00 02/14/19 e hr 18:57 Midazolam 2 mg ONCE ONCE 02/14/19 DC HCl IV 19:00 02/14/19 (Versed) 19:01 Propofol 100 ml @ 0 TITRATE 02/14/19 DC 02/14/19 mls/hr ONCE IV 19:00 02/14/19 22:06 19:01 Sodium 1,000 ml @ Q8H IV 02/14/19 02/14/19 Chloride 125 mls/hr 19:33 21:25 IV Flush 3 ml PER 02/14/19 (NS 3 ml) PROTOCOL IV 20:00 Ondansetron 4 mg Q6H PRN 02/14/19 HCl (Zofran IV 20:00 Inj) NAUSEA/VOMITI NG Morphine 2 mg Q4H PRN 02/14/19 Sulfate IV .SEVERE 20:00 (morphine) PAIN 7-10 Docusate 100 mg Q12H PRN 02/14/19 Sodium PO 20:00 (Colace) .CONSTIPATION 40 mg DAILY@06 02/15/19 DC Pantoprazole IV 06:00 02/15/19 (Protonix 06:00 Iv) Discontinue ONCE ONCE 02/14/19 DC Miscellaneous current oral XX 20:00 02/14/19 sulfonylur... 20:01 Information (* Miscellaneous Pharmacy Order) Diagnostic 1 ea 02 XX 02/15/19 Test (Pha) 02:00 (Accu-Chek) ONCE ONCE 02/14/19 DC Miscellaneous HYPOGLYCEMIA XX 20:00 02/14/19 PROTOCOL 20:01 Information w... (* Miscellaneous Pharmacy Order) Insulin NOVOLOG Q4 SC 02/14/19 02/14/19 Aspart *MILD* 21:00 21:43 (Novolog ALGORI... Insulin Pen) Discontinue ONCE ONCE 02/14/19 DC Miscellaneous all previ... XX 20:00 02/14/19 20:01 Information (* Miscellaneous Pharmacy Order) Vancomycin VANCOMYCIN PER 02/14/19 HCl (Vanco PER PHARMACY PROTOCOL XX 20:00 Iv Per Pharmacy) Piperacillin 100 ml @ Q8H IVPB 02/15/19 Sod/ 200 mls/hr 02:00 Tazobactam Sod 1 ea NOTE XX 02/14/19 Miscellaneous 20:00 Information Glucose 15 gm Q15M PRN 02/14/19 (Glutose) PO DECREASED 20:00 GLUCOSE Glucose 22.5 gm Q15M PRN 02/14/19 (Glutose) PO DECREASED 20:00 GLUCOSE Dextrose 25 ml Q15M PRN 02/14/19 (D50w IV DECREASED 20:00 Syringe) GLUCOSE Dextrose 50 ml Q15M PRN 02/14/19 (D50w IV DECREASED 20:00 Syringe) GLUCOSE Glucagon 1 mg Q15M PRN 02/14/19 (Glucagen) IM DECREASED 20:00 GLUCOSE Glucose 15 gm Q15M PRN 02/14/19 (Glutose) BUCCAL 20:00 DECREASED GLUCOSE 250 ml @ Q48H IVPB 02/16/19 Vancomycin/So 125 mls/hr 18:00 dium Chloride Famotidine 20 mg DAILY IV 02/15/19 (Pepcid Iv) 09:00 250 ml @ TITRATE IV 02/14/19 02/14/19 Norepinephrin 1.875 mls/ 21:00 21:11 e hr 250 ml @ ud STK-MED 02/14/19 DC Norepinephrin ONCE .ROUTE 20:47 02/14/19 e 20:48 Procedures/MDM EMERGENT LABS AND DIAGNOSTIC STUDIES: Lab Results above were reviewed and interpreted by me. CBC: Leukocytosis, consistent with infection. Mild anemia CMP: Uremic, hyponatremic, consistent with severe dehydration. Hyperglycemic without acidosis. Elevated BUN and creatinine, consistent with acute renal failure. Troponin within normal limits, not indicative of cardiac ischemia Lactate within normal limits without evidence of tissue hypoperfusion UA: + evidence of infection 12-lead EKG was interpreted by Isidro Leon MD: Sinus tachycardia at 101 bpm Normal axis Normal intervals Anterior and inferior Q waves, likely due to old infarct No acute ST or T wave changes suggestive of acute ischemia or STEMI. Radiology Results as interpreted by Radiology below were reviewed by Chris Leon MD: Chest x-ray: No acute abnormalities CT head: No acute abnormalities Initial Nursing notes reviewed. Previous Medical Records requested via the Electronic Health Record. EMERGENCY DEPARTMENT COURSE / MEDICAL DECISION MAKING: Procedures: Endotracheal Intubation by me: Pre assessment performed. See preceding note for details. Pre-oxygenation performed with 100% oxygen RSI: Performed w/o complication or hypoxic events. Medications as ordered. Blade: Max 3 ET Tube: 7.0 cm Depth: 22 cm at the lip Intubation confirmed by colorimetric CO2, equal breath sounds, quiet over the stomach. Chest X-ray 1V Interpreted by me: Right mainstem intubation. Normal soft tissue, No pneumothorax. After chest x-ray was done, I reevaluated the patient and it seems that the tube was somehow malpositioned after my intubation and was 26 cm at the lip. It was retracted 5 cm and another chest x-ray was done showing improved location of ET tube above the magdaleno. Central Line Placement by me: After time out was performed, appropriate hand hygiene was performed, the skin site was fully prepped and maximal sterile barrier technique was employed where the patient was sterilely draped, and the provider wore a mask and sterile gown and gloves. Anesthesia: 1% lidocaine locally Location: Right IJ Device: Multiple lumen Technique: Seldinger technique. Secured with suture. Results: Venous return from all ports with easy saline flush. No complications. Guide wire retrieved and disposed of Ultrasound guidance for procedure performed by me: Procedural Indication: Central venous access Technique: localized under ultrasound guidance during this procedure Chest X-ray 1V Interpreted by me: Central line in SVC, Normal soft tissue, No evidence of pneumothorax Admit MDM: Patient presented with a GCS of 3 with signs and symptoms of an acute infection. Sepsis work-up was initiated. Initially she was hypotensive but responsive to fluids. Lactate was within normal limits. However during her ED stay, patient became hypotensive, not responding to fluids. For this reason central line was placed and she was started on norepinephrine IV. She did require intubation for her mental status for airway protection. Patient's infectious symptoms have not stabilized, and the patient is at risk of rapid decompensation. The patient will be admitted for careful hydration, antibiotic therapy, and infectious source control. Severe Sepsis criteria: Infectious source: UTI End organ damage indicated by: Hypotension (SBP < 90 or >40 mmHG drop or MAP < 65) Acute Resp Failure (sat < 92% w/o oxygen) Sepsis Management: Time of recognition of severe sepsis: 1800 Within 3 hours of recognition: Blood cultures x 2 before broad-spectrum antibiotics: Yes 30 ml/kg NS bolus Completed Initial lactate normal Repeat lactate Not indicated as initial lactate < 2.0 Septic Shock Assessment: Any lactic acid > 4.0 No Persistent hypotension (SBP < 90 or 40 mmHg drop, MAP < 65) despite 30 mL/kg IV fluid bolus yes A focused sepsis perfusion/reperfusion reassessment examination was performed post 30ml/kg bolus @ 1835: Temp 98.3, BP 104/46, HR 89, RR16, Pox 100% on 6L Persistent Hypotension Treatment: Comfort care No Hypotension caused by: pt. baseline, med-induced, erroneous value, condition other than infection- No Refusal by patient/decision maker for: blood draw, IVF, Antibiotics, Pressors - No Central line yes Vasopressor started - Norepinephrine I considered further perfusion assessment with CVP measurement, SCVO2, bedside ultrasound volume assessment, passive leg raise, trial of further fluid bolus and proceeded with. Accepting Care Team Current data and ongoing care discussed. Admitting Physician: Placido Events Specialist(s): Outstanding Data: cultures Critical Care Time:70 minutes Treatments/Evaluations: Close monitoring and treatment of unstable vital signs, cardiorespiratory, and neurologic status, while maintaining tight balance of fluid, respiratory, and cardiac interventions. This includes the administration of emergency fluid management while maintaining close respiratory support as well as the provision of immediate and broad-spectrum antibiotic therapy, while performing a simultaneous assessment for possible sources in order to direct targeted therapy. This time includes discussing the case with the patient and the patients family.This time also includes the consideration for invasive and chemical support to prevent cardiopulmonary collapse. This time does not include all procedures stated elsewhere in this record. This time also includes reviewing old records, labs and radiological studies. This time includes examining and reexamining the patient. Additionally, this time also includes arranging care with admitting and consulting physicians. Departure Diagnosis: Primary Impression: Septic shock Additional Impressions: Severe dehydration UTI (urinary tract infection) Urinary tract infection type: acute pyelonephritis Qualified Codes: N10 - Acute pyelonephritis Acute renal failure Acute renal failure type: unspecified Qualified Codes: N17.9 - Acute kidney failure, unspecified Uremia Acute respiratory failure with hypoxia Acute metabolic encephalopathy Condition: Critical JEFE LEON MD Feb 14, 2019 17:39
[2019-02-14] MEDS ORDERED: DOCU50LI23 GTB (17:45)
[2019-02-14] MEDS ORDERED: CLON-379 GTB (17:47)
[2019-02-14] MEDS ORDERED: ACET325T45 GTB (17:50)
[2019-02-14] MEDS ORDERED: NORepinephrine 8MG/250 ML (PMX 250 ML IV SCH ×2 (18:00→21:00)
[2019-02-14] MEDS ORDERED: MIDAZOLAM 1 MG/ML 2 ML INJ IV ONE (19:00)
[2019-02-14] MEDS ORDERED: PROPOFOL 100 ML IV ONE (19:00)
--- NOTE | 2019-02-14 19:58 | HP ---
Date/Time of Note Date/Time of Note DATE: 02/14/19 TIME: 19:52 Assessment/Plan VTE Prophylaxis SCD applied (from Nsg): Yes Pharmacological prophylaxis: NA/contraindicated Pharm contraindication: renal impairment Lines/Catheters IV Catheter Type (from Nrsg): Peripheral IV Assessment/Plan Hospital Course 1. Septic shock secondary to UTI Blood pressure antibiotics Pressors as needed Admit to ICU Follow-up cultures 2. Acute respiratory failure secondary to acute encephalopathy and airway protection Vent support Poor knowledge consultation Admit to ICU 3. Acute on chronic encephalopathy secondary to severe sepsis on dementia Broad-spectrum antibiotics Follow-up on CT head Patient resides in a senior living facility 4. Acute kidney injury likely secondary to severe sepsis and hemodynamics IV fluids Monitor 5. Hypernatremia secondary to dehydration IV fluids 6. History of hypertension Hold home meds secondary to septic shock 7. Diabetes Sliding scale A1c Prophylaxis: SCDs Result Diagram: 02/14/19 1720 02/14/19 1720 Results 24hrs Laboratory Tests Test 02/14/19 17:13 02/14/19 17:15 02/14/19 17:20 02/14/19 17:45 Bedside Glucose 224 H POC Venous Lactate 1.8 White Blood Count 15.3 #H Red Blood Count 3.74 L Hemoglobin 10.9 L Hematocrit 35.5 L Mean Corpuscular 94.9 Volume Mean Corpuscular 29.1 Hemoglobin Mean Corpuscular 30.7 L Hemoglobin Concent Red Cell 15.0 H Distribution Width Platelet Count 404 # Mean Platelet 10.3 Volume Immature 0.600 H Granulocytes % Neutrophils % 85.0 H Lymphocytes % 8.0 L Monocytes % 5.8 Eosinophils % 0.2 Basophils % 0.4 Nucleated Red 0.0 Blood Cells % Immature 0.090 H Granulocytes # Neutrophils # 13.0 H Lymphocytes # 1.2 Monocytes # 0.9 Eosinophils # 0.0 Basophils # 0.1 Nucleated Red 0.0 Blood Cells # Prothrombin Time 14.6 Prothrombin Time 1.1 Ratio INR International 1.13 Normalized Ratio Activated 34.[address] Time Sodium Level 150 H Potassium Level 5.1 Chloride Level 109 Carbon Dioxide 32 H Level Anion Gap 9 Blood Urea 89 H Nitrogen Creatinine 1.45 H Est Glomerular Filtrat Rate mL/min Glucose Level 230 H Calcium Level 9.9 Total Bilirubin 0.4 Direct Bilirubin 0.00 Indirect Bilirubin 0.4 Aspartate Amino 72 H Transf (AST/SGOT) Alanine 42 Aminotransferase ( ALT/SGPT) Alkaline 125 H Phosphatase Troponin I 0.064 Total Protein 7.5 Albumin 3.1 L Globulin 4.40 H Albumin/Globulin 0.70 Ratio Urine Color CONI Urine Clarity TURBID A Urine pH 5.0 Urine Specific 1.015 [place] Urine Ketones NEGATIVE Urine Nitrite NEGATIVE Urine Bilirubin NEGATIVE Urine Urobilinogen 1+ H Urine Leukocyte 3+ H Esterase Urine Microscopic 13 H RBC Urine Microscopic > 182 H WBC Urine Squamous MODERATE Epithelial Cells Urine Bacteria FEW A Urine Yeast FEW A (Budding) Urine Hemoglobin NEGATIVE Urine Glucose NEGATIVE Urine Total 2+ H Protein Test 02/14/19 19:00 02/14/19 19:16 Blood Gas Specimen Blood arterial Source Arterial Blood 02/14/2019 7:30:17 Date Drawn PM Arterial Blood pH 7.374 (Temp corrected) Arterial Blood 44.4 pCO2 (Temp correct) Arterial Blood pO2 406.5 H (Temp corrected) Arterial Blood 25.3 HCO3 Arterial Blood -0.1 Base Excess Arterial Blood 99.9 Oxygen Saturation Jim Test N/A Arterial Blood Gas Right Brachial Puncture Site Arterial 0.1 Blood Carboxyhemog lobin Arterial Blood 0.2 Methemoglobin Blood Gas A-a O2 262.1 H Differential Oxyhemoglobin 99.6 H Percent Blood Gas 37.0 Temperature Blood Gas 14.0 Respiration Rate Blood Gas Actual 14 Respiration Rate Blood Gas Modality VENT - AC FiO2 100.0 Blood Gas Tidal 450.0 Volume Blood Gas Low PEEP 5.0 Setting Blood Gas Notified UP Whom Blood Gas Notified 02/14/2019 7:40:23 Time PM Lactic Acid Level 1.6 HPI/ROS Admit Date/Time Admit Date/Time February 14, 2019 Hx of Present Illness Patient is an 88-year-old female with history of dementia, hypertension and some dependent diabetes as well as prior BKA who [facility] with altered mental status and hypotension as well as hypoxemia. Patient is obtunded and was intubated in the ER. Patient has evidence of septic shock with positive UA. Patient is a full code. ROS Subjective hx not possible: pt non-verbal PMH/Family/Social Past Medical History As per HPI Medications Current Medications Sodium Chloride 1,000 ml @ 125 mls/hr Q8H IV ; Start 02/14/19 at 19:33; Status UNV IV Flush (NS 3 ml) 3 ml PER PROTOCOL IV ; Start 02/14/19 at 20:00; Status UNV Ondansetron HCl (Zofran Inj) 4 mg Q6H PRN IV NAUSEA/VOMITING; Start 02/14/19 at 20:00; Status UNV Morphine Sulfate (morphine) 2 mg Q4H PRN IV .SEVERE PAIN 7-10; Start 02/14/19 at 20:00; Status UNV Docusate Sodium (Colace) 100 mg Q12H PRN PO .CONSTIPATION; Start 02/14/19 at 2 0:00; Status UNV Pantoprazole (Protonix Iv) 40 mg DAILY@06 IV ; Start 02/15/19 at 06:00; Status UNV Miscellaneous Information (* Miscellaneous Pharmacy Order) Discontinue current oral sulfonylur... ONCE ONCE XX ; Start 02/14/19 at 20:00; Stop 02/14/19 at 20:01; Status UNV Diagnostic Test (Pha) (Accu-Chek) 1 ea XX ; Start 02/15/19 at 02:00; Status UNV Miscellaneous Information (* Miscellaneous Pharmacy Order) HYPOGLYCEMIA PROTOCOL w... ONCE ONCE XX ; Start 02/14/19 at 20:00; Stop 02/14/19 at 20:01; Status UNV Insulin Aspart (Novolog Insulin Pen) NOVOLOG *MILD* ALGORI... Q4 SC ; Start 02/14/19 at 21:00; Status UNV Miscellaneous Information (* Miscellaneous Pharmacy Order) Discontinue all p revi... ONCE ONCE XX ; Start 02/14/19 at 20:00; Stop 02/14/19 at 20:01; Status UNV Vancomycin HCl (Vanco Iv Per Pharmacy) VANCOMYCIN PER PHARMACY PER PROTOCOL XX ; Start 02/14/19 at 20:00; Status UNV Piperacillin Sod/ Tazobactam Sod 100 ml @ 200 mls/hr Q6 IVPB ; Start 02/15/19 at 00:00; Status UNV Coded Allergies: No Known Allergies (Verified Allergy, Mild, 02/14/19) Family History Significant Family History: no pertinent family hx Social History Alcohol Use: none Smoking Status: Never smoker Drug Use: none Exam/Review of Systems Vital Signs Vitals Vital Signs Date Temp Pulse Resp B/P (MAP) Pulse Ox O2 O2 Flow FiO2 Time Delivery Rate 02/14/19 71 14 99/53 (68 89 Mechanical 19:00 Ventilator 02/14/19 98.3 6.0 18:35 02/14/19 50 18:31 Exam Constitutional: non-verbal ENMT: intubated Respiratory: clear to auscultation Cardiovascular: regular rate and rhythm Gastrointestinal: soft; No distended Musculoskeletal: nl extremities to inspection EMANUEL MUSE Feb 14, 2019 19:58
[2019-02-14] MEDS ORDERED: GLUCOSE GEL 15 GRAM TUBE PO PRN ×2 (20:00)
[2019-02-14] MEDS ORDERED: NACL 0.9% 3 ML SYG IV SCH (20:00)
[2019-02-14] MEDS ORDERED: VANCOMYCIN IV PER PHARMACY XX SCH (20:00)
[2019-02-14] MEDS ORDERED: DEXTROSE 50% 50 ML SYRINGE IV PRN ×2 (20:00)
[2019-02-14] MEDS ORDERED: GLUCOSE GEL 15 GRAM TUBE BUCCAL PRN (20:00)
[2019-02-14] MEDS ORDERED: ONDANSETRON 4 MG INJ IV PRN (20:00)
[2019-02-14] MEDS ORDERED: DOCUSATE SODIUM 100 MG CAP PO PRN (20:00)
[2019-02-14] MEDS ORDERED: morphine 2 MG INJ IV PRN (20:00)
[2019-02-14] MEDS ORDERED: GLUCAGON 1 MG INJ IM PRN (20:00)
[2019-02-14] MEDS ORDERED: NORepinephrine 8MG/250 ML (PMX 250 ML ONE (20:47)
[2019-02-14] MEDS: SOD CHLORIDE 0.9% 1,000 ML IV SCH (21:25)
[2019-02-14] MEDS: INSULIN ASPART [NOVOLOG] 3 ML PEN SC SCH (21:43)
[2019-02-14 23:45] VITALS: PULSE 68
[2019-02-15] VITALS (98 sets, daily range): BP systolic 93–144; BP diastolic 49–79; PULSE 64–88; RESP 9–25; Ht 157.5 cm; Wt 54.9 kg
[2019-02-15] MEDS: INSULIN ASPART [NOVOLOG] 3 ML PEN SC SCH ×6 (01:06→20:56)
[2019-02-15] MEDS: PROPOFOL 100 ML IV SCH ×3 (01:09→17:01)
[2019-02-15] MEDS: PIPER-TAZO 3.375 GM IV (PMX) 100 ML IVPB SCH ×3 (01:48→18:47)
[2019-02-15] MEDS: ACCU-CHEK XX SCH (01:52)
[2019-02-15] MEDS: SOD CHLORIDE 0.9% 1,000 ML IV SCH ×3 (05:17→21:35)
[2019-02-15] MEDS ORDERED: PANTOPRAZOLE 40 MG INJ IV SCH (06:00)
--- NOTE | 2019-02-15 09:31 | CONS ---
DATE OF ADMISSION: 02/14/2019 DATE OF CONSULTATION: 02/15/2019 REASON FOR CONSULTATION: Ventilator management. Thank you, Dr. Nickerson, for this consultation. HISTORY OF PRESENT ILLNESS: This is an unfortunate 88-year-old lady brought in with altered mental s tatus, respiratory distress, requiring emergent intubation and mechanical ventilation, was found to h ave positive urinary tract infection with septic shock requiring vasopressor support. Few further de tails are available. PAST MEDICAL HISTORY: Dementia, hypertension, and previous knee amputation. [facility] PAST MEDICAL HISTORY: As above. MEDICATIONS: Per chart. ALLERGIES: NONE. SOCIAL HISTORY: Nonsmoker, no alcohol, no history of drug use. FAMILY HISTORY: Noncontributory. SYSTEMS REVIEW: A 12-point review of systems unable to perform. PHYSICAL EXAMINATION: GENERAL: Elderly-appearing lady, orally intubated on mechanical ventilation. VITAL SIGNS: Currently afebrile, pulse is 77, blood pressure 102/55, O2 saturation 96%, FIO2 of 40%, orally intubated. NECK: Supple. No JVD or lymphadenopathy. CARDIAC: S1, S2, no added sounds or murmurs. CHEST: Diminished air entry bilaterally. ABDOMEN: Soft, nontender. No guarding or rebound. EXTREMITIES: ____. NEUROLOGIC: Unable to assess. LABORATORY DATA: White count 22.4, hemoglobin 8.7, platelets 342. BUN 75, creatinine 1.04. ABG: p H 7.45, pCO2 of 37, pO2 of 220. Sodium 152. BUN 75, creatinine 1.04. Chest x-ray showed a right-si ded effusion. IMPRESSION AND PLAN: 1. Hypoxemic respiratory failure. 2. Possible aspiration pneumonia. 3. Infection with septic shock. The patient will require: 1. Vasopressor. 2. IV fluids. 3. Blood cultures. 4. Tube feeding. 5. DVT and GI prophylaxis. Dictated By: SHAUN SEWELL MD SV/STAN Conf#: [id number] DID#: [id number] CC: GALO NICKERSON MD; NORBERT WALDROP DO;*EndCC*
[2019-02-15] MEDS: FAMOTIDINE 20 MG INJ IV SCH (10:43)
--- NOTE | 2019-02-15 11:12 | CONS ---
DATE OF ADMISSION: 02/14/2019 DATE OF CONSULTATION: 02/15/2019 TYPE OF CONSULTATION: Nephrology. REASON FOR CONSULTATION: Acute kidney injury, hyponatremia. PHYSICIAN REQUESTING CONSULT: Dr. Cummins. HISTORY OF PRESENT ILLNESS: This is an 88-year-old female with a past medical history of dementia, h istory of hypertension, history of diabetes, history of peripheral vascular disease, history of dysph agia status post PEG, who presents from a snf facility to [facility] due to altered mental status, hypertension. The patient upon arrival to the emergency room was m arkedly hypertensive, was diagnosed with septic shock, placed on pressor support, IV fluids. The pat ient was in respiratory distress, was intubated, was transferred to intensive care unit. In terms of patient's renal history, the patient on admission had a creatinine of 1.45 mg/dL which is improved with IV hydration. The patient was also hypernatremic with sodium levels of 150. There ar e no reports of any hemoptysis, hematemesis or hematochezia. PAST MEDICAL HISTORY: As stated above, history of dementia, history of hypertension, history of diab etes, history of dyslipidemia, history of Alzheimer's dementia. PAST SURGICAL HISTORY: Status post PEG, status post BKA. FAMILY HISTORY: No family history of kidney disease. SOCIAL HISTORY: Lives at a skilled nurse facility. MEDICATIONS: The patient's medications have been reviewed. REVIEW OF SYSTEMS: A 14-point review of systems was significant for positives stated in HPI. PHYSICAL EXAMINATION: VITAL SIGNS: Blood pressure is 124/58, respiration 14, pulse 78, temperature 99.2. HEENT: ABDOMEN: Soft, nontender to palpation without rebound or guarding. EXTREMITIES: Negative for clubbing, cyanosis, no edema, positive BKA. DERMATOLOGIC: No rashes. MUSCULOSKELETAL: No joint effusion. NEUROLOGIC: The patient is obtunded. MEDICATIONS: The patient's medications have been reviewed. LABORATORY DATA: 02/15/2019, was reviewed. Urinalysis was reviewed. IMAGING STUDIES: Reviewed. ASSESSMENT AND PLAN: This is an 88-year-old female who presents with: 1. Nonoliguric acute kidney injury with a previously normal baseline creatinine of 0.57 mg/dL. Alida ology of acute kidney injury is secondary to sepsis, shock, hemodynamics. Possibility of tubular inj ury is a consideration. The patient's urinalysis was reviewed. The patient's renal function has imp roved with IV fluids, pressor support, antibiotic therapy. RECOMMENDATIONS: 1. Continue current treatment. 2. Monitor renal function closely. 3. Hypernatremia. The patient has a free water deficit of approximately 2.5 liters. This is likely secondary to insensible loss and decreased free water intake. However, we will rule out diabetes in sipidus by checking urinary sodium, urine osmolarity. We will start the patient on free flushes 20 m L q.4h. and monitor sodium levels closely. 4. Anemia. Monitor hemoglobin and hematocrit levels. 5. Mineral bone disorder. Monitor calcium and phosphorus levels. 6. Septic shock secondary to urinary tract infection. Continue current medical management. Continue pressor support, IV fluids and antibiotic therapy. 7. Ventilator-dependent failure. Settings reviewed. Continue to monitor. 8. Acute on chronic encephalopathy. Etiology is toxic metabolic. Continue to monitor. 9. History of hypertension. 10. Diabetes. Continue current insulin regimen. 11. History of Alzheimer dementia. Thank you, Dr. Cummins, for this interesting consult. It will be a pleasure to follow the patient wi th you throughout the hospital course. Dictated By: NORBERT WALDROP DO NR/NTS Conf#: [id number] DID#: [id number] CC: GALO WU MD; EMANUEL CUMMINS MD;*End*
[2019-02-15] MEDS ORDERED: PENDING SANTYL ORDER FOR WOUND CARE XX PRN (11:30)
--- NOTE | 2019-02-15 12:43 | PN ---
Date/Time of Note Date/Time of Note DATE: 02/15/19 TIME: 12:41 Assessment/Plan VTE Prophylaxis Risk score (from [facility])>0 risk: 12 SCD applied (from [facility]): Yes Pharmacological prophylaxis: NA/contraindicated Pharm contraindication: renal impairment Lines/Catheters IV Catheter Type (from [facility]): Peripheral IV Assessment/Plan Hospital Course 1. Septic shock secondary to UTI Continue broad-spectrum antibiotics Pressors as needed ID consultation obtained Follow-up on cultures 2. Acute respiratory failure secondary to acute encephalopathy and airway protection Vent support Pulmonology consultation appreciated 3. Acute on chronic encephalopathy secondary to severe sepsis on dementia Broad-spectrum antibiotics CT head with no acute findings Patient resides in a half-way facility 4. Acute kidney injury likely secondary to severe sepsis and hemodynamics- improving Nephrology consultation appreciated IV fluids Monitor 5. Hypernatremia secondary to dehydration IV fluids Nephrology consultation appreciated 6. History of hypertension Hold home meds secondary to septic shock 7. Diabetes Sliding scale A1c at 8.7 Prophylaxis: SCDs DC planning: Not stable DC, continue management as per above Result Diagram: 02/15/19 0340 02/15/19 0340 Results 24hrs Laboratory Tests Test 02/14/19 17:13 02/14/19 17:15 02/14/19 17:20 02/14/19 17:45 Bedside Glucose 224 H POC Venous 1.8 Lactate White Blood 15.3 #H Count Red Blood Count 3.74 L Hemoglobin 10.9 L Hematocrit 35.5 L Mean Corpuscular 94.9 Volume Mean Corpuscular 29.1 Hemoglobin Mean Corpuscular 30.7 L Hemoglobin Genevieve nt Red Cell 15.0 H Distribution Width Platelet Count 404 # Mean Platelet 10.3 Volume Immature 0.600 H Granulocytes % Neutrophils % 85.0 H Lymphocytes % 8.0 L Monocytes % 5.8 Eosinophils % 0.2 Basophils % 0.4 Nucleated Red 0.0 Blood Cells % Immature 0.090 H Granulocytes # Neutrophils # 13.0 H Lymphocytes # 1.2 Monocytes # 0.9 Eosinophils # 0.0 Basophils # 0.1 Nucleated Red 0.0 Blood Cells # Prothrombin Time 14.6 Prothrombin Time 1.1 Ratio INR 1.13 International Normalized Ratio Activated 34.6 Partial Thrombop last Time Sodium Level 150 H Potassium Level 5.1 Chloride Level 109 Carbon Dioxide 32 H Level Anion Gap 9 Blood Urea 89 H Nitrogen Creatinine 1.45 H Est Glomerular Filtrat Rate mL/min Glucose Level 230 H Calcium Level 9.9 Total Bilirubin 0.4 Direct Bilirubin 0.00 Indirect 0.4 Bilirubin Aspartate Amino 72 H Transf (AST/SGOT ) Alanine 42 Aminotransferase (ALT/SGPT) Alkaline 125 H Phosphatase Troponin I 0.064 Total Protein 7.5 Albumin 3.1 L Globulin 4.40 H Albumin/Globulin 0.70 Ratio Urine Color CONI Urine Clarity TURBID A Urine pH 5.0 Urine Specific 1.015 [place] Urine Ketones NEGATIVE Urine Nitrite NEGATIVE Urine Bilirubin NEGATIVE Urine 1+ H Urobilinogen Urine Leukocyte 3+ H Esterase Urine 13 H Microscopic RBC Urine > 182 H Microscopic WBC Urine Squamous MODERATE Epithelial Cells Urine Bacteria FEW A Urine Yeast FEW A (Budding) Urine Hemoglobin NEGATIVE Urine Glucose NEGATIVE Urine Total 2+ H Protein Test 02/14/19 19:00 02/14/19 19:16 02/14/19 21:08 02/14/19 21:12 Blood Gas Blood arterial Blood arterial Specimen Source Arterial Blood 02/14/2019 7:30:17 02/14/2019 9:15:53 Date Drawn PM PM Arterial Blood 7.374 7.395 pH (Temp corrected) Arterial Blood 44.4 40.6 pCO2 (Temp correct) Arterial Blood 406.5 H 43.4 *L pO2 (Temp corrected) Arterial Blood 25.3 24.3 HCO3 Arterial Blood -0.1 -0.5 Base Excess Arterial Blood 99.9 75.8 L Oxygen Saturatio n Jim Test N/A N/A Arterial Blood Right Brachial LB Gas Puncture Site Arterial 0.1 0.3 Blood Carboxyhem oglobin Arterial Blood 0.2 0.1 Methemoglobin Blood Gas A-a O2 262.1 H 267.4 H Differential Oxyhemoglobin 99.6 H 75.5 L Percent Blood Gas 37.0 37.0 Temperature Blood Gas 14.0 14.0 Respiration Rate Blood Gas Actual 14 15 Respiration Rate Blood Gas VENT - AC VENT - AC Modality FiO2 100.0 50.0 Blood Gas Tidal 450.0 450.0 Volume Blood Gas Low 5.0 0 PEEP Setting Blood Gas UP MR Notified Whom Blood Gas 02/14/2019 7:40:23 02/14/2019 9:25:56 Notified Time PM PM Lactic Acid 1.6 1.5 Level Blood Gas 35.0 Inspiratory Pressure Blood Gas EKPerez ASCENCIO MD Critical Value Read Back Test 02/14/19 21:13 02/15/19 01:02 02/15/19 01:51 02/15/19 03:40 Bedside Glucose 156 181 181 White Blood 22.4 #H Count Red Blood Count 2.98 #L Hemoglobin 8.7 #L Hematocrit 28.1 #L Mean Corpuscular 94.3 Volume Mean Corpuscular 29.2 Hemoglobin Mean Corpuscular 31.0 L Hemoglobin Genevieve nt Red Cell 14.7 H Distribution Width Platelet Count 342 Mean Platelet 10.5 H Volume Immature 0.700 H Granulocytes % Neutrophils % 88.4 H Lymphocytes % 6.7 L Monocytes % 3.7 Eosinophils % 0.2 Basophils % 0.3 Nucleated Red 0.0 Blood Cells % Immature 0.160 H Granulocytes # Neutrophils # 19.8 H Lymphocytes # 1.5 Monocytes # 0.8 Eosinophils # 0.1 Basophils # 0.1 Nucleated Red 0.0 Blood Cells # Sodium Level 152 H Potassium Level 3.8 Chloride Level 120 H Carbon Dioxide 27 Level Anion Gap 5 Blood Urea 75 H Nitrogen Creatinine 1.04 H Est Glomerular Filtrat Rate mL/min Glucose Level 127 # Hemoglobin A1c 8.7 H Calcium Level 8.2 L Phosphorus Level 3.3 Magnesium Level 2.6 H Total Bilirubin 0.5 Direct Bilirubin 0.00 Indirect 0.5 Bilirubin Aspartate Amino 54 H Transf (AST/SGOT ) Alanine 45 Aminotransferase (ALT/SGPT) Alkaline 89 Phosphatase Total Protein 6.2 # Albumin 2.4 L Globulin 3.80 H Albumin/Globulin 0.63 Ratio Test 02/15/19 05:00 02/15/19 05:15 02/15/19 10:48 02/15/19 10:49 Blood Gas Blood arterial Specimen Source Arterial Blood 02/15/2019 5:40:30 Date Drawn AM Arterial Blood 7.458 H pH (Temp corrected) Arterial Blood 37.2 pCO2 (Temp correct) Arterial Blood 220.8 H pO2 (Temp corrected) Arterial Blood 25.7 HCO3 Arterial Blood 1.9 Base Excess Arterial Blood 99.3 Oxygen Saturatio n Jim Test N/A Arterial Blood Right Brachial Gas Puncture Site Arterial 0.3 Blood Carboxyhem oglobin Arterial Blood 0.2 Methemoglobin Blood Gas A-a O2 166.1 H Differential Oxyhemoglobin 98.8 Percent Blood Gas 37.0 Temperature Blood Gas 14.0 Respiration Rate Blood Gas Actual 14 Respiration Rate Blood Gas VENT - AC Modality FiO2 60.0 Blood Gas Tidal 450.0 Volume Blood Gas Low 5.0 PEEP Setting Blood Gas UP Notified Whom Blood Gas 02/15/2019 5:51:29 Notified Time AM Bedside Glucose 107 80 93 Subjective 24 Hr Interval Summary Subjective hx not possible: pt non-verbal Exam/Review of Systems Exam Vitals Vital Signs Date Temp Pulse Resp B/P (MAP) Pulse Ox O2 O2 Flow FiO2 Time Delivery Rate 02/15/19 73 12:00 02/15/19 14 124/58 100 Mechanical 09:00 (80) Ventilator 02/15/19 99.2 08:00 02/15/19 40 06:24 02/14/19 6.0 23:30 Intake and Output 02/14/19 02/14/19 02/15/19 1515:00 23:00 07:00 IntakeIntake Total 5200 ml 1134.26 ml OutputOutput Total 535 ml BalanceBalance 5200 ml 599.26 ml Constitutional: non-verbal Respiratory: clear to auscultation Cardiovascular: regular rate and rhythm Gastrointestinal: soft; No distended Musculoskeletal: nl extremities to inspection Results Results 24hrs Laboratory Tests Test 02/14/19 17:13 02/14/19 17:15 02/14/19 17:20 02/14/19 17:45 Bedside Glucose 224 H POC Venous 1.8 Lactate White Blood 15.3 #H Count Red Blood Count 3.74 L Hemoglobin 10.9 L Hematocrit 35.5 L Mean Corpuscular 94.9 Volume Mean Corpuscular 29.1 Hemoglobin Mean Corpuscular 30.7 L Hemoglobin Genevieve nt Red Cell 15.0 H Distribution Width Platelet Count 404 # Mean Platelet 10.3 Volume Immature 0.600 H Granulocytes % Neutrophils % 85.0 H Lymphocytes % 8.0 L Monocytes % 5.8 Eosinophils % 0.2 Basophils % 0.4 Nucleated Red 0.0 Blood Cells % Immature 0.090 H Granulocytes # Neutrophils # 13.0 H Lymphocytes # 1.2 Monocytes # 0.9 Eosinophils # 0.0 Basophils # 0.1 Nucleated Red 0.0 Blood Cells # Prothrombin Time 14.6 Prothrombin Time 1.1 Ratio INR 1.13 International Normalized Ratio Activated 34.6 Partial Thrombop last Time Sodium Level 150 H Potassium Level 5.1 Chloride Level 109 Carbon Dioxide 32 H Level Anion Gap 9 Blood Urea 89 H Nitrogen Creatinine 1.45 H Est Glomerular Filtrat Rate mL/min Glucose Level 230 H Calcium Level 9.9 Total Bilirubin 0.4 Direct Bilirubin 0.00 Indirect 0.4 Bilirubin Aspartate Amino 72 H Transf (AST/SGOT ) Alanine 42 Aminotransferase (ALT/SGPT) Alkaline 125 H Phosphatase Troponin I 0.064 Total Protein 7.5 Albumin 3.1 L Globulin 4.40 H Albumin/Globulin 0.70 Ratio Urine Color CONI Urine Clarity TURBID A Urine pH 5.0 Urine Specific 1.015 [place] Urine Ketones NEGATIVE Urine Nitrite NEGATIVE Urine Bilirubin NEGATIVE Urine 1+ H Urobilinogen Urine Leukocyte 3+ H Esterase Urine 13 H Microscopic RBC Urine > 182 H Microscopic WBC Urine Squamous MODERATE Epithelial Cells Urine Bacteria FEW A Urine Yeast FEW A (Budding) Urine Hemoglobin NEGATIVE Urine Glucose NEGATIVE Urine Total 2+ H Protein Test 02/14/19 19:00 02/14/19 19:16 02/14/19 21:08 02/14/19 21:12 Blood Gas Blood arterial Blood arterial Specimen Source Arterial Blood 02/14/2019 7:30:17 02/14/2019 9:15:53 Date Drawn PM PM Arterial Blood 7.374 7.395 pH (Temp corrected) Arterial Blood 44.4 40.6 pCO2 (Temp correct) Arterial Blood 406.5 H 43.4 *L pO2 (Temp corrected) Arterial Blood 25.3 24.3 HCO3 Arterial Blood -0.1 -0.5 Base Excess Arterial Blood 99.9 75.8 L Oxygen Saturatio n Jim Test N/A N/A Arterial Blood Right Brachial LB Gas Puncture Site Arterial 0.1 0.3 Blood Carboxyhem oglobin Arterial Blood 0.2 0.1 Methemoglobin Blood Gas A-a O2 262.1 H 267.4 H Differential Oxyhemoglobin 99.6 H 75.5 L Percent Blood Gas 37.0 37.0 Temperature Blood Gas 14.0 14.0 Respiration Rate Blood Gas Actual 14 15 Respiration Rate Blood Gas VENT - AC VENT - AC Modality FiO2 100.0 50.0 Blood Gas Tidal 450.0 450.0 Volume Blood Gas Low 5.0 0 PEEP Setting Blood Gas UP MR Notified Whom Blood Gas 02/14/2019 7:40:23 02/14/2019 9:25:56 Notified Time PM PM Lactic Acid 1.6 1.5 Level Blood Gas 35.0 Inspiratory Pressure Blood Gas EKPerez ASCENCIO MD Critical Value Read Back Test 02/14/19 21:13 02/15/19 01:02 02/15/19 01:51 02/15/19 03:40 Bedside Glucose 156 181 181 White Blood 22.4 #H Count Red Blood Count 2.98 #L Hemoglobin 8.7 #L Hematocrit 28.1 #L Mean Corpuscular 94.3 Volume Mean Corpuscular 29.2 Hemoglobin Mean Corpuscular 31.0 L Hemoglobin Genevieve nt Red Cell 14.7 H Distribution Width Platelet Count 342 Mean Platelet 10.5 H Volume Immature 0.700 H Granulocytes % Neutrophils % 88.4 H Lymphocytes % 6.7 L Monocytes % 3.7 Eosinophils % 0.2 Basophils % 0.3 Nucleated Red 0.0 Blood Cells % Immature 0.160 H Granulocytes # Neutrophils # 19.8 H Lymphocytes # 1.5 Monocytes # 0.8 Eosinophils # 0.1 Basophils # 0.1 Nucleated Red 0.0 Blood Cells # Sodium Level 152 H Potassium Level 3.8 Chloride Level 120 H Carbon Dioxide 27 Level Anion Gap 5 Blood Urea 75 H Nitrogen Creatinine 1.04 H Est Glomerular Filtrat Rate mL/min Glucose Level 127 # Hemoglobin A1c 8.7 H Calcium Level 8.2 L Phosphorus Level 3.3 Magnesium Level 2.6 H Total Bilirubin 0.5 Direct Bilirubin 0.00 Indirect 0.5 Bilirubin Aspartate Amino 54 H Transf (AST/SGOT ) Alanine 45 Aminotransferase (ALT/SGPT) Alkaline 89 Phosphatase Total Protein 6.2 # Albumin 2.4 L Globulin 3.80 H Albumin/Globulin 0.63 Ratio Test 02/15/19 05:00 02/15/19 05:15 02/15/19 10:48 02/15/19 10:49 Blood Gas Blood arterial Specimen Source Arterial Blood 02/15/2019 5:40:30 Date Drawn AM Arterial Blood 7.458 H pH (Temp corrected) Arterial Blood 37.2 pCO2 (Temp correct) Arterial Blood 220.8 H pO2 (Temp corrected) Arterial Blood 25.7 HCO3 Arterial Blood 1.9 Base Excess Arterial Blood 99.3 Oxygen Saturatio n Jim Test N/A Arterial Blood Right Brachial Gas Puncture Site Arterial 0.3 Blood Carboxyhem oglobin Arterial Blood 0.2 Methemoglobin Blood Gas A-a O2 166.1 H Differential Oxyhemoglobin 98.8 Percent Blood Gas 37.0 Temperature Blood Gas 14.0 Respiration Rate Blood Gas Actual 14 Respiration Rate Blood Gas VENT - AC Modality FiO2 60.0 Blood Gas Tidal 450.0 Volume Blood Gas Low 5.0 PEEP Setting Blood Gas UP Notified Whom Blood Gas 02/15/2019 5:51:29 Notified Time AM Bedside Glucose 107 80 93 Medications Medication Current Medications Sodium Chloride 1,000 ml @ 75 mls/hr [id number] IV Last administered on 02/15/19at 05:17; Admin Dose 125 MLS/HR; Start 02/14/19 at 19:33 IV Flush (NS 3 ml) 3 ml PER PROTOCOL IV ; Start 02/14/19 at 20:00 Ondansetron HCl (Zofran Inj) 4 mg Q6H PRN IV NAUSEA/VOMITING; Start 02/14/19 at 20:00 Morphine Sulfate (morphine) 2 mg Q4H PRN IV .SEVERE PAIN 7-10; Start 02/14/19 at 20:00 Docusate Sodium (Colace) 100 mg Q12H PRN PO .CONSTIPATION; Start 02/14/19 at 20:00 Diagnostic Test (Pha) (Accu-Chek) 1 ea 02 XX Last administered on 02/15/19at 01:52; Admin Dose 1 EA; Start 02/15/19 at 02:00 Insulin Aspart (Novolog Insulin Pen) NOVOLOG *MILD* ALGORI... Q4 SC Last administered on 02/15/19at 01:06; Admin Dose 2 UNIT; Start 02/14/19 at 21:00 Vancomycin HCl (Vanco Iv Per Pharmacy) VANCOMYCIN PER PHARMACY PER PROTOCOL XX ; Start 02/14/19 at 20:00 Piperacillin Sod/ Tazobactam Sod 100 ml @ 200 mls/hr Q8H IVPB Last administered on 02/15/19at 10:43; Admin Dose 200 MLS/HR; Start 02/15/19 at 02:00 Miscellaneous Information 1 ea NOTE XX ; Start 02/14/19 at 20:00 Glucose (Glutose) 15 gm Q15M PRN PO DECREASED GLUCOSE; Start 02/14/19 at 20:00 Glucose (Glutose) 22.5 gm Q15M PRN PO DECREASED GLUCOSE; Start 02/14/19 at 20:00 Dextrose (D50w Syringe) 25 ml Q15M PRN IV DECREASED GLUCOSE; Start 02/14/19 at 20:00 Dextrose (D50w Syringe) 50 ml Q15M PRN IV DECREASED GLUCOSE; Start 02/14/19 at 20:00 Glucagon (Glucagen) 1 mg Q15M PRN IM DECREASED GLUCOSE; Start 02/14/19 at 20:00 Glucose (Glutose) 15 gm Q15M PRN BUCCAL DECREASED GLUCOSE; Start 02/14/19 at 20:00 Famotidine (Pepcid Iv) 20 mg DAILY IV Last administered on 02/15/19at 10:43; Admin Dose 20 MG; Start 02/15/19 at 09:00 Norepinephrine 250 ml @ 1.875 mls/ hr TITRATE IV Last administered on 02/14/19at 21:11; Admin Dose 15 MLS/HR; Start 02/14/19 at 21:00 Propofol 100 ml @ 1.647 mls/ hr Q12H IV Last administered on 02/15/19at 01:09; Admin Dose 1.96 MLS/HR; Start 02/15/19 at 01:00 Miscellaneous Information (Pending Santyl Order For Wound Care) This patient slaughter... PRN PRN XX WOUND CARE; Start 02/15/19 at 11:30 Vancomycin HCl 100 ml @ 100 mls/hr Q24H IVPB ; Start 02/15/19 at 20:00 EMANUEL MUSE Feb 15, 2019 12:43
--- NOTE | 2019-02-15 14:10 | CONS ---
Assessment/Plan Assessment/Plan Hospital Course (Demo Recall) ID PROGRESS NOTE CURRENT ABX: DAY # 2=> Vanco IV + Zosyn 02/15/19 0340 02/15/19 0340 24H INTERVAL SUMMARY * Intubated - mechanical vent in the ICU, no fevers, chart reviewed * Admit with sepsis, shock, UTI, RLL PNA DIAGNOSTIC IMAGING * 02/14/19 CXR:1. No evidence of acute cardiopulmonary disease. 2. Loop of bowel overlying left lower lobe may be related to a large hiatal or diaphragmatic hernia. 3. Aortic atherosclerosis * 02/14/19 CXR: IMPRESSION: * New right IJ central venous catheter extending into the mid - distal SVC without evidence of pneumothorax seen. * Right basilar opacity which may again reflect atelectasis/pneumonia, perhaps also includes the presence of a small right pleural effusion, for which continued attention on follow-up is recommended. MICRO * 02/14/19 UA (+) PHYSICAL EXAMINATION: GENERAL: VSS, NAD HEENT: AT, NC, NECK: Supple, CHEST: Rise symmetrical HEART: Pulse RRR ABDOMEN: Benign EXTREMITIES: Warm, dry - Right AKA SKIN: No rash, no diaphoresis ID ASSESSMENT 88 yo F admit with: 1. Septic shock 2. UTI per UA 3. RLL PNA -- suspect ASP PNA 4. Acute respiratory failure due to encephalopathy for airway protection 5. Hiatal hernia - GERD -> ASP risk factors 6. HTN 7. Diabetes 8. Hx of RIGHT AKA (?)MRSA Nares ABX ALLERGIES: KNDA INVASIVES: PIV CURRENT ABX: DAY # 2=> Vanco IV + Zosyn ID RECOMMENDATIONS/PLAN: 1. Continue ABX 2. Micro pending -- Will follow . Consultation Date/Type/Reason Admit Date/Time Feb 14, 2019 at 19:18 Initial Consult Date Date/Time of Note DATE: 02/15/19 TIME: 13:44 Exam/Review of Systems Exam Vitals Vital Signs Date Temp Pulse Resp B/P (MAP) Pulse Ox O2 O2 Flow FiO2 Time Delivery Rate 02/15/19 75 16 129/52 100 Mechanical 13:15 (77) Ventilator 02/15/19 97.2 12:00 02/15/19 40 11:25 02/14/19 6.0 23:30 Intake and Output 02/14/19 02/14/19 02/15/19 1515:00 23:00 07:00 IntakeIntake Total 5200 ml 1134.26 ml OutputOutput Total 535 ml BalanceBalance 5200 ml 599.26 ml Results Result Diagram: 02/15/19 0340 02/15/19 0340 Results 24hrs Laboratory Tests Test 02/14/19 17:13 02/14/19 17:15 02/14/19 17:20 02/14/19 17:45 Bedside Glucose 224 H POC Venous 1.8 Lactate White Blood 15.3 #H Count Red Blood Count 3.74 L Hemoglobin 10.9 L Hematocrit 35.5 L Mean Corpuscular 94.9 Volume Mean Corpuscular 29.1 Hemoglobin Mean Corpuscular 30.7 L Hemoglobin Genevieve nt Red Cell 15.0 H Distribution Width Platelet Count 404 # Mean Platelet 10.3 Volume Immature 0.600 H Granulocytes % Neutrophils % 85.0 H Lymphocytes % 8.0 L Monocytes % 5.8 Eosinophils % 0.2 Basophils % 0.4 Nucleated Red 0.0 Blood Cells % Immature 0.090 H Granulocytes # Neutrophils # 13.0 H Lymphocytes # 1.2 Monocytes # 0.9 Eosinophils # 0.0 Basophils # 0.1 Nucleated Red 0.0 Blood Cells # Prothrombin Time 14.6 Prothrombin Time 1.1 Ratio INR 1.13 International Normalized Ratio Activated 34.6 Partial Thrombop last Time Sodium Level 150 H Potassium Level 5.1 Chloride Level 109 Carbon Dioxide 32 H Level Anion Gap 9 Blood Urea 89 H Nitrogen Creatinine 1.45 H Est Glomerular Filtrat Rate mL/min Glucose Level 230 H Calcium Level 9.9 Total Bilirubin 0.4 Direct Bilirubin 0.00 Indirect 0.4 Bilirubin Aspartate Amino 72 H Transf (AST/SGOT ) Alanine 42 Aminotransferase (ALT/SGPT) Alkaline 125 H Phosphatase Troponin I 0.064 Total Protein 7.5 Albumin 3.1 L Globulin 4.40 H Albumin/Globulin 0.70 Ratio Urine Color CONI Urine Clarity TURBID A Urine pH 5.0 Urine Specific 1.015 [place] Urine Ketones NEGATIVE Urine Nitrite NEGATIVE Urine Bilirubin NEGATIVE Urine 1+ H Urobilinogen Urine Leukocyte 3+ H Esterase Urine 13 H Microscopic RBC Urine > 182 H Microscopic WBC Urine Squamous MODERATE Epithelial Cells Urine Bacteria FEW A Urine Yeast FEW A (Budding) Urine Hemoglobin NEGATIVE Urine Glucose NEGATIVE Urine Total 2+ H Protein Test 02/14/19 19:00 02/14/19 19:16 02/14/19 21:08 02/14/19 21:12 Blood Gas Blood arterial Blood arterial Specimen Source Arterial Blood 02/14/2019 7:30:17 02/14/2019 9:15:53 Date Drawn PM PM Arterial Blood 7.374 7.395 pH (Temp corrected) Arterial Blood 44.4 40.6 pCO2 (Temp correct) Arterial Blood 406.5 H 43.4 *L pO2 (Temp corrected) Arterial Blood 25.3 24.3 HCO3 Arterial Blood -0.1 -0.5 Base Excess Arterial Blood 99.9 75.8 L Oxygen Saturatio n Jim Test N/A N/A Arterial Blood Right Brachial LB Gas Puncture Site Arterial 0.1 0.3 Blood Carboxyhem oglobin Arterial Blood 0.2 0.1 Methemoglobin Blood Gas A-a O2 262.1 H 267.4 H Differential Oxyhemoglobin 99.6 H 75.5 L Percent Blood Gas 37.0 37.0 Temperature Blood Gas 14.0 14.0 Respiration Rate Blood Gas Actual 14 15 Respiration Rate Blood Gas VENT - AC VENT - AC Modality FiO2 100.0 50.0 Blood Gas Tidal 450.0 450.0 Volume Blood Gas Low 5.0 0 PEEP Setting Blood Gas UP MR Notified Whom Blood Gas 02/14/2019 7:40:23 02/14/2019 9:25:56 Notified Time PM PM Lactic Acid 1.6 1.5 Level Blood Gas 35.0 Inspiratory Pressure Blood Gas EKPerez ASCENCIO MD Critical Value Read Back Test 02/14/19 21:13 02/15/19 01:02 02/15/19 01:51 02/15/19 03:40 Bedside Glucose 156 181 181 White Blood 22.4 #H Count Red Blood Count 2.98 #L Hemoglobin 8.7 #L Hematocrit 28.1 #L Mean Corpuscular 94.3 Volume Mean Corpuscular 29.2 Hemoglobin Mean Corpuscular 31.0 L Hemoglobin Genevieve nt Red Cell 14.7 H Distribution Width Platelet Count 342 Mean Platelet 10.5 H Volume Immature 0.700 H Granulocytes % Neutrophils % 88.4 H Lymphocytes % 6.7 L Monocytes % 3.7 Eosinophils % 0.2 Basophils % 0.3 Nucleated Red 0.0 Blood Cells % Immature 0.160 H Granulocytes # Neutrophils # 19.8 H Lymphocytes # 1.5 Monocytes # 0.8 Eosinophils # 0.1 Basophils # 0.1 Nucleated Red 0.0 Blood Cells # Sodium Level 152 H Potassium Level 3.8 Chloride Level 120 H Carbon Dioxide 27 Level Anion Gap 5 Blood Urea 75 H Nitrogen Creatinine 1.04 H Est Glomerular Filtrat Rate mL/min Glucose Level 127 # Hemoglobin A1c 8.7 H Calcium Level 8.2 L Phosphorus Level 3.3 Magnesium Level 2.6 H Total Bilirubin 0.5 Direct Bilirubin 0.00 Indirect 0.5 Bilirubin Aspartate Amino 54 H Transf (AST/SGOT ) Alanine 45 Aminotransferase (ALT/SGPT) Alkaline 89 Phosphatase Total Protein 6.2 # Albumin 2.4 L Globulin 3.80 H Albumin/Globulin 0.63 Ratio Test 02/15/19 05:00 02/15/19 05:15 02/15/19 10:48 02/15/19 10:49 Blood Gas Blood arterial Specimen Source Arterial Blood 02/15/2019 5:40:30 Date Drawn AM Arterial Blood 7.458 H pH (Temp corrected) Arterial Blood 37.2 pCO2 (Temp correct) Arterial Blood 220.8 H pO2 (Temp corrected) Arterial Blood 25.7 HCO3 Arterial Blood 1.9 Base Excess Arterial Blood 99.3 Oxygen Saturatio n Jim Test N/A Arterial Blood Right Brachial Gas Puncture Site Arterial 0.3 Blood Carboxyhem oglobin Arterial Blood 0.2 Methemoglobin Blood Gas A-a O2 166.1 H Differential Oxyhemoglobin 98.8 Percent Blood Gas 37.0 Temperature Blood Gas 14.0 Respiration Rate Blood Gas Actual 14 Respiration Rate Blood Gas VENT - AC Modality FiO2 60.0 Blood Gas Tidal 450.0 Volume Blood Gas Low 5.0 PEEP Setting Blood Gas UP Notified Whom Blood Gas 02/15/2019 5:51:29 Notified Time AM Bedside Glucose 107 80 93 Medications Medication Current Medications Sodium Chloride 1,000 ml @ 75 mls/hr [id number] IV Last administered on 02/15/19at 05:17; Admin Dose 125 MLS/HR; Start 02/14/19 at 19:33 IV Flush (NS 3 ml) 3 ml PER PROTOCOL IV ; Start 02/14/19 at 20:00 Ondansetron HCl (Zofran Inj) 4 mg Q6H PRN IV NAUSEA/VOMITING; Start 02/14/19 at 20:00 Morphine Sulfate (morphine) 2 mg Q4H PRN IV .SEVERE PAIN 7-10; Start 02/14/19 at 20:00 Docusate Sodium (Colace) 100 mg Q12H PRN PO .CONSTIPATION; Start 02/14/19 at 20:00 Diagnostic Test (Pha) (Accu-Chek) 1 ea 02 XX Last administered on 02/15/19at 01:52; Admin Dose 1 EA; Start 02/15/19 at 02:00 Insulin Aspart (Novolog Insulin Pen) NOVOLOG *MILD* ALGORI... Q4 SC Last admini stered on 02/15/19at 01:06; Admin Dose 2 UNIT; Start 02/14/19 at 21:00 Vancomycin HCl (Vanco Iv Per Pharmacy) VANCOMYCIN PER PHARMACY PER PROTOCOL XX ; Start 02/14/19 at 20:00 Piperacillin Sod/ Tazobactam Sod 100 ml @ 200 mls/hr Q8H IVPB Last administered on 02/15/19at 10:43; Admin Dose 200 MLS/HR; Start 02/15/19 at 02:00 Miscellaneous Information 1 ea NOTE XX ; Start 02/14/19 at 20:00 Glucose (Glutose) 15 gm Q15M PRN PO DECREASED GLUCOSE; Start 02/14/19 at 20:00 Glucose (Glutose) 22.5 gm Q15M PRN PO DECREASED GLUCOSE; Start 02/14/19 at 20:00 Dextrose (D50w Syringe) 25 ml Q15M PRN IV DECREASED GLUCOSE; Start 02/14/19 at 20:00 Dextrose (D50w Syringe) 50 ml Q15M PRN IV DECREASED GLUCOSE; Start 02/14/19 at 20:00 Glucagon (Glucagen) 1 mg Q15M PRN IM DECREASED GLUCOSE; Start 02/14/19 at 20:00 Glucose (Glutose) 15 gm Q15M PRN BUCCAL DECREASED GLUCOSE; Start 02/14/19 at 20:00 Famotidine (Pepcid Iv) 20 mg DAILY IV Last administered on 02/15/19at 10:43; Admin Dose 20 MG; Start 02/15/19 at 09:00 Norepinephrine 250 ml @ 1.875 mls/ hr TITRATE IV Last administered on 02/14/19at 21:11; Admin Dose 15 MLS/HR; Start 02/14/19 at 21:00 Propofol 100 ml @ 1.647 mls/ hr Q12H IV Last administered on 02/15/19at 01:09; Admin Dose 1.96 MLS/HR; Start 02/15/19 at 01:00 Miscellaneous Information (Pending Santyl Order For Wound Care) This patient slaughter... PRN PRN XX WOUND CARE; Start 02/15/19 at 11:30 Vancomycin HCl 100 ml @ 100 mls/hr Q24H IVPB ; Start 02/15/19 at 20:00 ERICA ALFONSO NP Feb 15, 2019 13:54
[2019-02-15] MEDS: VANCOMYCIN 500 MG (PMX) 100 ML IVPB SCH (20:52)
[2019-02-16] VITALS (45 sets, daily range): BP systolic 88–138; BP diastolic 46–64; PULSE 63–86; RESP 11–21
[2019-02-16] MEDS: INSULIN ASPART [NOVOLOG] 3 ML PEN SC SCH ×6 (00:40→21:23)
[2019-02-16] MEDS: PROPOFOL 100 ML IV SCH ×3 (00:42→21:17)
[2019-02-16] MEDS: PIPER-TAZO 3.375 GM IV (PMX) 100 ML IVPB SCH ×3 (01:38→17:40)
[2019-02-16] MEDS: ACCU-CHEK XX SCH (02:00)
[2019-02-16] MEDS ORDERED: POTASSIUM CHLORIDE 20 MEQ POWDER FOR ORAL SOLN GTB ONE (07:30)
--- NOTE | 2019-02-16 08:04 | PN ---
DATE: 02/16/2019 SUBJECTIVE: The patient is critically ill, currently off pressor support. Urinary output has been a dequate. The patient is on full ventilatory support. OBJECTIVE: VITAL SIGNS: Blood pressure is 88/46, pulse 74, respirations 16, temperature 98.6. HEENT: Head is normocephalic. NECK: Supple. HEART: Regular rate. LUNGS: Show diminished breath sounds at the base. ABDOMEN: Soft, nontender to palpation without rebound or guarding. EXTREMITIES: Negative for clubbing, cyanosis. Trace edema. DERMATOLOGIC: No rashes. MUSCULOSKELETAL: No joint effusion. NEUROLOGIC: No change in exam. MEDICATIONS: Have been reviewed. LABORATORY DATA: Has been reviewed. IMAGING STUDIES: Have been reviewed. ASSESSMENT AND PLAN: 1. Nonoliguric acute kidney injury with previously normal baseline creatinine of 0.5 mg/dL. Etiolog y of acute kidney injury is secondary to sepsis, shock, hemodynamics. Renal function has been improv ing. At this point, continue current treatment plan, supportive care, renally dose all meds. Contin ue antibiotic therapy. 2. Hyponatremia. The patient has a free water deficit of approximately 3 liters. Will continue tanesha e water flushes. Increase rate to 400 mL every 4 hours. Will change IV fluids to hypotonic half NS. Monitor sodium levels closely. 3. Hypokalemia. Replete with potassium chloride. 4. Anemia. Continue to monitor hemoglobin and hematocrit levels. 5. Mineral bone disorder, monitor calcium and phosphorus levels. 6. Septic shock secondary to urinary tract infection. The patient is currently improving off presso r support. Continue antibiotic therapy. 7. Ventilator dependent respiratory failure. Vent settings and ABG was reviewed. Continue to monit or. 8. Acute on chronic encephalopathy, etiology is toxic metabolic. Continue to monitor. 9. History of hypertension. 10. Diabetes. Continue current insulin regimen. 11. History of Alzheimer dementia. Dictated By: NORBERT WALDROP DO NR/NTS Conf#: [id number] DID#: [id number] CC: GALO WU MD;*EndCC*
[2019-02-16] MEDS: SOD CHLORIDE 0.45% 1,000 ML IV SCH ×3 (08:22→21:18)
[2019-02-16] MEDS: FAMOTIDINE 20 MG INJ IV SCH (08:40)
--- NOTE | 2019-02-16 10:19 | CONS ---
Assessment/Plan Assessment/Plan Hospital Course (Demo Recall) ID PROGRESS NOTE CURRENT ABX: DAY # 3=> Vanco IV + Zosyn 02/16/197 02/16/19 0437 24H INTERVAL SUMMARY * No fevers, WBC down today -- OFF PRESSORS * Orally Intubated - mechanical vent -- noncommunicative * Admit with sepsis, shock, UTI, RLL PNA DIAGNOSTIC IMAGING * 02/14/19 CXR:1. No evidence of acute cardiopulmonary disease. 2. Loop of bowel overlying left lower lobe may be related to a large hiatal or diaphragmatic hernia. 3. Aortic atherosclerosis * 02/14/19 CXR: IMPRESSION: * New right IJ central venous catheter extending into the mid - distal SVC without evidence of pneumothorax seen. * Right basilar opacity which may again reflect atelectasis/pneumonia, perhaps also includes the presence of a small right pleural effusion, for which continued attention on follow-up is recommended. MICRO * (-)MRSA Nares * BCx 02/14/19 (-) * 02/14/19 URINE CX (+) URINE CULTURE Final Organism 1 ENTEROCOCCUS SPECIES COLONY COUNT >100,000 CFU/ml ENT SPS M.I.C. RX --------- --- AMPICILLIN <=2 S CIPROFLOXACIN <=0.5 S LEVOFLOXACIN 1 S NITROFURANTOIN <=16 S PENICILLIN-G 2 S VANCOMYCIN 2 S * BCx 02/01/19 (-) from [facility] facility * BCX 01/31/19 (-) from [facility] facility * PHYSICAL EXAMINATION: GENERAL: VSS, NAD HEENT: AT, NC, NECK: Supple, CHEST: Rise symmetrical HEART: Pulse RRR ABDOMEN: Benign EXTREMITIES: Warm, dry - Right AKA SKIN: No rash, no diaphoresis ID ASSESSMENT 88 yo F admit with: 1. Septic shock * BCx 02/14/19 (-) 2. ENTEROCOCCAL UTI * 02/14/19 URINE CX (+) URINE CULTURE Final Organism 1 ENTEROCOCCUS SPECIES COLONY COUNT >100,000 CFU/ml 3. RLL PNA -- suspect ASP PNA 4. Acute respiratory failure due to encephalopathy for airway protection 5. Hiatal hernia - GERD -> ASP risk factors 6. HTN 7. Diabetes 8. Anemia 9. Hx of RIGHT AKA (-)MRSA Nares ABX ALLERGIES: KNDA INVASIVES: PIV CURRENT ABX: DAY # 3=> Vanco IV + Zosyn ID RECOMMENDATIONS/PLAN: 1. Continue ABX short course 5-7 days 2. Ventilator weaning per PULM . Consultation Date/Type/Reason Admit Date/Time Feb 14, 2019 at 19:18 Initial Consult Date Date/Time of Note DATE: 02/16/19 TIME: 10:12 Exam/Review of Systems Exam Vitals Vital Signs Date Temp Pulse Resp B/P (MAP) Pulse Ox O2 O2 Flow FiO2 Time Delivery Rate 02/16/19 71 13 106/54 100 Mechanical 08:30 (71) Ventilator 02/16/19 97.8 08:00 02/16/19 30 05:11 02/14/19 6.0 23:30 Intake and Output 02/15/19 02/15/19 02/16/19 1515:00 23:00 07:00 IntakeIntake Total 1284.021 ml 1295.935 ml 1346.16 ml OutputOutput Total 965 ml 555 ml 370 ml BalanceBalance 319.021 ml 740.935 ml 976.16 ml Results Result Diagram: 02/16/19 0437 02/16/19 0437 Results 24hrs Laboratory Tests Test 02/15/19 10:48 02/15/19 10:49 02/15/19 14:52 02/15/19 17:02 Bedside Glucose 80 93 81 85 Test 02/15/19 20:55 02/15/19 22:00 02/16/19 00:39 02/16/19 02:28 Bedside Glucose 110 131 159 Urine Color YELLOW Urine Clarity CLEAR Urine pH 5.0 Urine Specific 1.016 [place] Urine Ketones NEGATIVE Urine Nitrite NEGATIVE Urine Bilirubin NEGATIVE Urine Urobilinogen NEGATIVE Urine Leukocyte 3+ H Esterase Urine Microscopic RBC 1 Urine Microscopic WBC 46 H Urine Hemoglobin NEGATIVE Urine Random 19.24 L Creatinine Urine Random Sodium 109 H Urine Glucose NEGATIVE Urine Total Protein 51.0 H Test 02/16/19 04:37 02/16/19 04:53 02/16/19 05:43 02/16/19 08:39 White Blood Count 16.5 #H Red Blood Count 2.73 L Hemoglobin 7.9 L Hematocrit 26.0 L Mean Corpuscular 95.2 Volume Mean Corpuscular 28.9 L Hemoglobin Mean Corpuscular 30.4 L Hemoglobin Concent Red Cell Distribution 15.0 H Width Platelet Count 291 Mean Platelet Volume 11.0 H Immature Granulocytes 0.600 H % Neutrophils % 90.3 H Lymphocytes % 5.2 L Monocytes % 3.0 Eosinophils % 0.7 Basophils % 0.2 Nucleated Red Blood 0.0 Cells % Immature Granulocytes 0.100 H # Neutrophils # 14.9 H Lymphocytes # 0.9 Monocytes # 0.5 Eosinophils # 0.1 Basophils # 0.0 Nucleated Red Blood 0.0 Cells # Sodium Level 153 H Potassium Level 3.3 L Chloride Level 124 H Carbon Dioxide Level 22 Anion Gap 7 Blood Urea Nitrogen 43 #H Creatinine 0.80 Est Glomerular Filtrat Rate mL/min Glucose Level 177 Calcium Level 8.4 Phosphorus Level 2.9 Magnesium Level 2.4 Bedside Glucose 197 202 Lab Scanned Report REFERENCE LAB Medications Medication Current Medications IV Flush (NS 3 ml) 3 ml PER PROTOCOL IV ; Start 02/14/19 at 20:00 Ondansetron HCl (Zofran Inj) 4 mg Q6H PRN IV NAUSEA/VOMITING; Start 02/14/19 at 20:00 Morphine Sulfate (morphine) 2 mg Q4H PRN IV .SEVERE PAIN 7-10; Start 02/14/19 at 20:00 Docusate Sodium (Colace) 100 mg Q12H PRN PO .CONSTIPATION; Start 02/14/19 at 20:00 Diagnostic Test (Pha) (Accu-Chek) 1 ea 02 XX Last administered on 02/15/19at 01:52; Admin Dose 1 EA; Start 02/15/19 at 02:00 Insulin Aspart (Novolog Insulin Pen) NOVOLOG *MILD* ALGORI... Q4 SC Last administered on 02/16/19at 08:46; Admin Dose 2 UNIT; Start 02/14/19 at 21:00 Vancomycin HCl (Vanco Iv Per Pharmacy) VANCOMYCIN PER PHARMACY PER PROTOCOL XX ; Start 02/14/19 at 20:00 Piperacillin Sod/ Tazobactam Sod 100 ml @ 200 mls/hr Q8H IVPB Last administered on 02/16/19at 01:38; Admin Dose 200 MLS/HR; Start 02/15/19 at 02:00 Miscellaneous Information 1 ea NOTE XX ; Start 02/14/19 at 20:00 Glucose (Glutose) 15 gm Q15M PRN PO DECREASED GLUCOSE; Start 02/14/19 at 20:00 Glucose (Glutose) 22.5 gm Q15M PRN PO DECREASED GLUCOSE; Start 02/14/19 at 20:00 Dextrose (D50w Syringe) 25 ml Q15M PRN IV DECREASED GLUCOSE; Start 02/14/19 at 20:00 Dextrose (D50w Syringe) 50 ml Q15M PRN IV DECREASED GLUCOSE; Start 02/14/19 at 20:00 Glucagon (Glucagen) 1 mg Q15M PRN IM DECREASED GLUCOSE; Start 02/14/19 at 20:00 Glucose (Glutose) 15 gm Q15M PRN BUCCAL DECREASED GLUCOSE; Start 02/14/19 at 20:00 Famotidine (Pepcid Iv) 20 mg DAILY IV Last administered on 02/16/19at 08:40; Adm in Dose 20 MG; Start 02/15/19 at 09:00 Norepinephrine 250 ml @ 1.875 mls/ hr TITRATE IV Last administered on 02/14/19at 21:11; Admin Dose 15 MLS/HR; Start 02/14/19 at 21:00 Propofol 100 ml @ 1.647 mls/ hr Q12H IV Last administered on 02/16/19at 00:42; Admin Dose 3.27 MLS/HR; Start 02/15/19 at 01:00 Miscellaneous Information (Pending [facility] Order For Wound Care) This patient slaughter... PRN PRN XX WOUND CARE; Start 02/15/19 at 11:30 Vancomycin HCl 100 ml @ 100 mls/hr Q24H IVPB Last administered on 02/15/19at 20:52; Admin Dose 100 MLS/HR; Start 02/15/19 at 20:00 Sodium Chloride 1,000 ml @ 75 mls/hr [id number] IV Last administered on 02/16/19at 08:22; Admin Dose 75 MLS/HR; Start 02/16/19 at 07:30 ERICA ALFONSO NP Feb 16, 2019 10:19
--- NOTE | 2019-02-16 12:02 | CONS ---
Consult Date/Type/Reason Admit Date/Time Feb 14, 2019 at 19:18 Initial Consult Date Type of Consult Pulmonary Date/Time of Note DATE: 02/16/19 TIME: 11:58 Subjective Patient was more alert earlier this morning placed on CPAP trial. Currently she is more somnolent however. Hemodynamically stable. Chest x-ray shows probable right effusion versus infiltrate. Objective Vital Signs Date Temp Pulse Resp B/P (MAP) Pulse Ox O2 O2 Flow FiO2 Time Delivery Rate 02/16/19 71 13 106/54 100 Mechanical 08:30 (71) Ventilator 02/16/19 97.8 08:00 02/16/19 30 05:11 02/14/19 6.0 23:30 Intake and Output 02/15/19 02/15/19 02/16/19 1515:00 23:00 07:00 IntakeIntake Total 1284.021 ml 1295.935 ml 1346.16 ml OutputOutput Total 965 ml 555 ml 370 ml BalanceBalance 319.021 ml 740.935 ml 976.16 ml Exam PHYSICAL EXAMINATION: GENERAL: Elderly-appearing lady, orally intubated on mechanical ventilation. VITAL SIGNS: NECK: Supple. No JVD or lymphadenopathy. CARDIAC: S1, S2, no added sounds or murmurs. CHEST: Diminished air entry bilaterally. ABDOMEN: Soft, nontender. No guarding or rebound. EXTREMITIES: Edema +2 NEUROLOGIC: Unable to assess. Vent Setting Ventilator Support Mode: AC Fraction of Inspired Oxygen pe: 30 Positive End Expiratory Pressu: 5.0 Results/Medications Result Diagram: 02/16/19 0437 02/16/19 0437 Results 24 hrs Laboratory Tests Test 02/15/19 14:52 02/15/19 17:02 02/15/19 20:55 02/15/19 22:00 Bedside Glucose 81 85 110 Urine Color YELLOW Urine Clarity CLEAR Urine pH 5.0 Urine Specific 1.016 [place] Urine Ketones NEGATIVE Urine Nitrite NEGATIVE Urine Bilirubin NEGATIVE Urine NEGATIVE Urobilinogen Urine Leukocyte 3+ H Esterase Urine Microscopic 1 RBC Urine Microscopic 46 H WBC Urine Hemoglobin NEGATIVE Urine Random 19.24 L Creatinine Urine Random 109 H Sodium Urine Glucose NEGATIVE Urine Total 51.0 H Protein Test 02/16/19 00:39 02/16/19 02:28 02/16/19 04:37 02/16/19 04:53 Bedside Glucose 131 159 197 White Blood Count 16.5 #H Red Blood Count 2.73 L Hemoglobin 7.9 L Hematocrit 26.0 L Mean Corpuscular 95.2 Volume Mean Corpuscular 28.9 L Hemoglobin Mean Corpuscular 30.4 L Hemoglobin Concen t Red Cell 15.0 H Distribution Width Platelet Count 291 Mean Platelet 11.0 H Volume Immature 0.600 H Granulocytes % Neutrophils % 90.3 H Lymphocytes % 5.2 L Monocytes % 3.0 Eosinophils % 0.7 Basophils % 0.2 Nucleated Red 0.0 Blood Cells % Immature 0.100 H Granulocytes # Neutrophils # 14.9 H Lymphocytes # 0.9 Monocytes # 0.5 Eosinophils # 0.1 Basophils # 0.0 Nucleated Red 0.0 Blood Cells # Sodium Level 153 H Potassium Level 3.3 L Chloride Level 124 H Carbon Dioxide 22 Level Anion Gap 7 Blood Urea 43 #H Nitrogen Creatinine 0.80 Est Glomerular Filtrat Rate mL/min Glucose Level 177 Calcium Level 8.4 Phosphorus Level 2.9 Magnesium Level 2.4 Test 02/16/19 05:43 02/16/19 08:39 02/16/19 11:50 Lab Scanned REFERENCE LAB Report Bedside Glucose 202 Blood Gas Blood arterial Specimen Source Arterial Blood 02/16/2019 11:46:3 Date Drawn 1 AM Arterial Blood pH 7.455 H (Temp corrected) Arterial Blood 31.2 L pCO2 (Temp correct) Arterial Blood 141.2 H pO2 (Temp corrected) Arterial Blood 21.4 L HCO3 Arterial Blood -1.8 Base Excess Arterial Blood 98.9 Oxygen Saturation Jim Test N/A Arterial Blood Right Brachial Gas Puncture Site Arterial 0.3 Blood Carboxyhemo globin Arterial Blood 0.1 Methemoglobin Blood Gas A-a O2 36.0 H Differential Oxyhemoglobin 98.5 Percent Blood Gas 37.0 Temperature Blood Gas Actual 17 Respiration Rate Blood Gas VENT - CPAP Modality FiO2 30.0 Blood Gas Low 5.0 PEEP Setting Blood Gas 10 Pressure Support Blood Gas TM Notified Whom Blood Gas 02/16/2019 11:55:1 Notified Time 7 AM Medications Current Medications IV Flush (NS 3 ml) 3 ml PER PROTOCOL IV ; Start 02/14/19 at 20:00 Ondansetron HCl (Zofran Inj) 4 mg Q6H PRN IV NAUSEA/VOMITING; Start 02/14/19 at 20:00 Morphine Sulfate (morphine) 2 mg Q4H PRN IV .SEVERE PAIN 7-10; Start 02/14/19 at 20:00 Docusate Sodium (Colace) 100 mg Q12H PRN PO .CONSTIPATION; Start 02/14/19 at 20:00 Diagnostic Test (Pha) (Accu-Chek) 1 ea 02 XX Last administered on 02/15/19at 01:52; Admin Dose 1 EA; Start 02/15/19 at 02:00 Insulin Aspart (Novolog Insulin Pen) NOVOLOG *MILD* ALGORI... Q4 SC Last administered on 02/16/19at 08:46; Admin Dose 2 UNIT; Start 02/14/19 at 21:00 Vancomycin HCl (Vanco Iv Per Pharmacy) VANCOMYCIN PER PHARMACY PER PROTOCOL XX ; Start 02/14/19 at 20:00 Piperacillin Sod/ Tazobactam Sod 100 ml @ 200 mls/hr Q8H IVPB Last administered on 02/16/19at 10:33; Admin Dose 200 MLS/HR; Start 02/15/19 at 02:00 Miscellaneous Information 1 ea NOTE XX ; Start 02/14/19 at 20:00 Glucose (Glutose) 15 gm Q15M PRN PO DECREASED GLUCOSE; Start 02/14/19 at 20:00 Glucose (Glutose) 22.5 gm Q15M PRN PO DECREASED GLUCOSE; Start 02/14/19 at 20:00 Dextrose (D50w Syringe) 25 ml Q15M PRN IV DECREASED GLUCOSE; Start 02/14/19 at 20:00 Dextrose (D50w Syringe) 50 ml Q15M PRN IV DECREASED GLUCOSE; Start 02/14/19 at 20:00 Glucagon (Glucagen) 1 mg Q15M PRN IM DECREASED GLUCOSE; Start 02/14/19 at 20:00 Glucose (Glutose) 15 gm Q15M PRN BUCCAL DECREASED GLUCOSE; Start 02/14/19 at 2 0:00 Famotidine (Pepcid Iv) 20 mg DAILY IV Last administered on 02/16/19at 08:40; Admin Dose 20 MG; Start 02/15/19 at 09:00 Norepinephrine 250 ml @ 1.875 mls/ hr TITRATE IV Last administered on 02/14/19at 21:11; Admin Dose 15 MLS/HR; Start 02/14/19 at 21:00 Propofol 100 ml @ 1.647 mls/ hr Q12H IV Last administered on 02/16/19at 00:42; Admin Dose 3.27 MLS/HR; Start 02/15/19 at 01:00 Miscellaneous Information (Pending Santyl Order For Wound Care) This patient slaughter... PRN PRN XX WOUND CARE; Start 02/15/19 at 11:30 Vancomycin HCl 100 ml @ 100 mls/hr Q24H IVPB Last administered on 02/15/19at 20:52; Admin Dose 100 MLS/HR; Start 02/15/19 at 20:00 Sodium Chloride 1,000 ml @ 75 mls/hr [id number] IV Last administered on 02/16/19at 08:22; Admin Dose 75 MLS/HR; Start 02/16/19 at 07:30 Assessment/Plan Hospital Course (Demo Recall) IMPRESSION 1. Hypoxemic respiratory failure. 2. Possible aspiration pneumonia. 3. Infection with septic shock. 4. Encephalopathy toxic metabolic 5. Significant decubitus ulcers Plan 1. Vasopressor, As needed keep map greater than 65. 2. IV fluids. 3. Blood cultures. 4. Tube feeding. 5. DVT and GI prophylaxis. 6. CPAP weaning trial this morning. However patient is somnolent and may not be safely extubated 7. Wound care 8. nursing home social worker contact family to discuss goals of care. SHAUN SEWELL MD, [facility] Feb 16, 2019 12:01
--- NOTE | 2019-02-16 17:07 | PN ---
Date/Time of Note Date/Time of Note DATE: 02/16/19 TIME: 17:06 Assessment/Plan VTE Prophylaxis Risk score (from Ns)>0 risk: 7 SCD applied (from Ns): Yes Pharmacological prophylaxis: LMWH Lines/Catheters IV Catheter Type (from Nrsg): Central Line Central line still needed: Yes Urinary Cath still in place: Yes Reason Cath still needed: urinary retention Assessment/Plan Hospital Course Intubated Sedated RRR CTAB SOft nt nd 1. Septic shock secondary to UTI Continue broad-spectrum antibiotics Pressors as needed ID consultation obtained Follow-up on cultures 2. Acute respiratory failure secondary to acute encephalopathy and airway pro tection Vent support Pulmonology consultation appreciated 3. Acute on chronic encephalopathy secondary to severe sepsis on dementia Broad-spectrum antibiotics CT head with no acute findings Patient resides in a retirement facility 4. Acute kidney injury likely secondary to severe sepsis and hemodynamics- improving Nephrology consultation appreciated IV fluids Monitor 5. Hypernatremia secondary to dehydration IV fluids Nephrology consultation appreciated 6. History of hypertension Hold home meds secondary to septic shock 7. Diabetes Sliding scale A1c at 8.7 Prophylaxis: SCDs DC planning: Not stable DC, continue management as per above Result Diagram: 02/16/19 0437 02/16/19 0437 Results 24hrs Laboratory Tests Test 02/15/19 20:55 02/15/19 22:00 02/16/19 00:39 02/16/19 02:28 Bedside Glucose 110 131 159 Urine Color YELLOW Urine Clarity CLEAR Urine pH 5.0 Urine Specific 1.016 [place] Urine Ketones NEGATIVE Urine Nitrite NEGATIVE Urine Bilirubin NEGATIVE Urine NEGATIVE Urobilinogen Urine Leukocyte 3+ H Esterase Urine Microscopic 1 RBC Urine Microscopic 46 H WBC Urine Hemoglobin NEGATIVE Urine Random 19.24 L Creatinine Urine Random 109 H Sodium Urine Glucose NEGATIVE Urine Total 51.0 H Protein Test 02/16/19 04:37 02/16/19 04:53 02/16/19 05:43 02/16/19 08:39 White Blood Count 16.5 #H Red Blood Count 2.73 L Hemoglobin 7.9 L Hematocrit 26.0 L Mean Corpuscular 95.2 Volume Mean Corpuscular 28.9 L Hemoglobin Mean Corpuscular 30.4 L Hemoglobin Concen t Red Cell 15.0 H Distribution Width Platelet Count 291 Mean Platelet 11.0 H Volume Immature 0.600 H Granulocytes % Neutrophils % 90.3 H Lymphocytes % 5.2 L Monocytes % 3.0 Eosinophils % 0.7 Basophils % 0.2 Nucleated Red 0.0 Blood Cells % Immature 0.100 H Granulocytes # Neutrophils # 14.9 H Lymphocytes # 0.9 Monocytes # 0.5 Eosinophils # 0.1 Basophils # 0.0 Nucleated Red 0.0 Blood Cells # Sodium Level 153 H Potassium Level 3.3 L Chloride Level 124 H Carbon Dioxide 22 Level Anion Gap 7 Blood Urea 43 #H Nitrogen Creatinine 0.80 Est Glomerular Filtrat Rate mL/min Glucose Level 177 Calcium Level 8.4 Phosphorus Level 2.9 Magnesium Level 2.4 Bedside Glucose 197 202 Lab Scanned REFERENCE LAB Report Test 02/16/19 11:50 02/16/19 12:31 02/16/19 16:58 Blood Gas Blood arterial Specimen Source Arterial Blood 02/16/2019 11:46:3 Date Drawn 1 AM Arterial Blood pH 7.455 H (Temp corrected) Arterial Blood 31.2 L pCO2 (Temp correct) Arterial Blood 141.2 H pO2 (Temp corrected) Arterial Blood 21.4 L HCO3 Arterial Blood -1.8 Base Excess Arterial Blood 98.9 Oxygen Saturation Jim Test N/A Arterial Blood Right Brachial Gas Puncture Site Arterial 0.3 Blood Carboxyhemo globin Arterial Blood 0.1 Methemoglobin Blood Gas A-a O2 36.0 H Differential Oxyhemoglobin 98.5 Percent Blood Gas 37.0 Temperature Blood Gas Actual 17 Respiration Rate Blood Gas VENT - CPAP Modality FiO2 30.0 Blood Gas Low 5.0 PEEP Setting Blood Gas 10 Pressure Support Blood Gas TM Notified Whom Blood Gas 02/16/2019 11:55:1 Notified Time 7 AM Bedside Glucose 189 241 H Subjective 24 Hr Interval Summary Free Text/Dictation CPAP trial this AM Unable to be extubated Exam/Review of Systems Exam Vitals Vital Signs Date Temp Pulse Resp B/P (MAP) Pulse Ox O2 O2 Flow FiO2 Time Delivery Rate 02/16/19 66 16:00 02/16/19 18 110/58 100 12:30 (75) 02/16/19 30 12:30 02/16/19 97.7 Mechanical 12:00 Ventilator 02/14/19 6.0 23:30 Intake and Output 02/15/19 02/15/19 02/16/19 1515:00 23:00 07:00 IntakeIntake Total 1284.021 ml 1295.935 ml 1346.16 ml OutputOutput Total 965 ml 555 ml 370 ml BalanceBalance 319.021 ml 740.935 ml 976.16 ml Results Results 24hrs Laboratory Tests Test 02/15/19 20:55 02/15/19 22:00 02/16/19 00:39 02/16/19 02:28 Bedside Glucose 110 131 159 Urine Color YELLOW Urine Clarity CLEAR Urine pH 5.0 Urine Specific 1.016 [place] Urine Ketones NEGATIVE Urine Nitrite NEGATIVE Urine Bilirubin NEGATIVE Urine NEGATIVE Urobilinogen Urine Leukocyte 3+ H Esterase Urine Microscopic 1 RBC Urine Microscopic 46 H WBC Urine Hemoglobin NEGATIVE Urine Random 19.24 L Creatinine Urine Random 109 H Sodium Urine Glucose NEGATIVE Urine Total 51.0 H Protein Test 02/16/19 04:37 02/16/19 04:53 02/16/19 05:43 02/16/19 08:39 White Blood Count 16.5 #H Red Blood Count 2.73 L Hemoglobin 7.9 L Hematocrit 26.0 L Mean Corpuscular 95.2 Volume Mean Corpuscular 28.9 L Hemoglobin Mean Corpuscular 30.4 L Hemoglobin Concen t Red Cell 15.0 H Distribution Width Platelet Count 291 Mean Platelet 11.0 H Volume Immature 0.600 H Granulocytes % Neutrophils % 90.3 H Lymphocytes % 5.2 L Monocytes % 3.0 Eosinophils % 0.7 Basophils % 0.2 Nucleated Red 0.0 Blood Cells % Immature 0.100 H Granulocytes # Neutrophils # 14.9 H Lymphocytes # 0.9 Monocytes # 0.5 Eosinophils # 0.1 Basophils # 0.0 Nucleated Red 0.0 Blood Cells # Sodium Level 153 H Potassium Level 3.3 L Chloride Level 124 H Carbon Dioxide 22 Level Anion Gap 7 Blood Urea 43 #H Nitrogen Creatinine 0.80 Est Glomerular Filtrat Rate mL/min Glucose Level 177 Calcium Level 8.4 Phosphorus Level 2.9 Magnesium Level 2.4 Bedside Glucose 197 202 Lab Scanned REFERENCE LAB Report Test 02/16/19 11:50 02/16/19 12:31 02/16/19 16:58 Blood Gas Blood arterial Specimen Source Arterial Blood 02/16/2019 11:46:3 Date Drawn 1 AM Arterial Blood pH 7.455 H (Temp corrected) Arterial Blood 31.2 L pCO2 (Temp correct) Arterial Blood 141.2 H pO2 (Temp corrected) Arterial Blood 21.4 L HCO3 Arterial Blood -1.8 Base Excess Arterial Blood 98.9 Oxygen Saturation Jim Test N/A Arterial Blood Right Brachial Gas Puncture Site Arterial 0.3 Blood Carboxyhemo globin Arterial Blood 0.1 Methemoglobin Blood Gas A-a O2 36.0 H Differential Oxyhemoglobin 98.5 Percent Blood Gas 37.0 Temperature Blood Gas Actual 17 Respiration Rate Blood Gas VENT - CPAP Modality FiO2 30.0 Blood Gas Low 5.0 PEEP Setting Blood Gas 10 Pressure Support Blood Gas TM Notified Whom Blood Gas 02/16/2019 11:55:1 Notified Time 7 AM Bedside Glucose 189 241 H Medications Medication Current Medications IV Flush (NS 3 ml) 3 ml PER PROTOCOL IV ; Start 02/14/19 at 20:00 Ondansetron HCl (Zofran Inj) 4 mg Q6H PRN IV NAUSEA/VOMITING; Start 02/14/19 at 20:00 Morphine Sulfate (morphine) 2 mg Q4H PRN IV .SEVERE PAIN 7-10; Start 02/14/19 at 20:00 Docusate Sodium (Colace) 100 mg Q12H PRN PO .CONSTIPATION; Start 02/14/19 at 20:00 Diagnostic Test (Pha) (Accu-Chek) 1 ea 02 XX Last administered on 02/15/19at 01:52; Admin Dose 1 EA; Start 02/15/19 at 02:00 Insulin Aspart (Novolog Insulin Pen) NOVOLOG *MILD* ALGORI... Q4 SC Last administered on 02/16/19at 17:00; Admin Dose 3 UNIT; Start 02/14/19 at 21:00 Vancomycin HCl (Vanco Iv Per Pharmacy) VANCOMYCIN PER PHARMACY PER PROTOCOL XX ; Start 02/14/19 at 20:00 Piperacillin Sod/ Tazobactam Sod 100 ml @ 200 mls/hr Q8H IVPB Last administered on 02/16/19at 10:33; Admin Dose 200 MLS/HR; Start 02/15/19 at 02:00 Miscellaneous Information 1 ea NOTE XX ; Start 02/14/19 at 20:00 Glucose (Glutose) 15 gm Q15M PRN PO DECREASED GLUCOSE; Start 02/14/19 at 20:00 Glucose (Glutose) 22.5 gm Q15M PRN PO DECREASED GLUCOSE; Start 02/14/19 at 20:00 Dextrose (D50w Syringe) 25 ml Q15M PRN IV DECREASED GLUCOSE; Start 02/14/19 at 20:00 Dextrose (D50w Syringe) 50 ml Q15M PRN IV DECREASED GLUCOSE; Start 02/14/19 at 20:00 Glucagon (Glucagen) 1 mg Q15M PRN IM DECREASED GLUCOSE; Start 02/14/19 at 20:00 Glucose (Glutose) 15 gm Q15M PRN BUCCAL DECREASED GLUCOSE; Start 02/14/19 at 20:00 Famotidine (Pepcid Iv) 20 mg DAILY IV Last administered on 02/16/19at 08:40; Admin Dose 20 MG; Start 02/15/19 at 09:00 Norepinephrine 250 ml @ 1.875 mls/ hr TITRATE IV Last administered on 02/14/19at 21:11; Admin Dose 15 MLS/HR; Start 02/14/19 at 21:00 Propofol 100 ml @ 1.647 mls/ hr Q12H IV Last administered on 02/16/19at 12:24; Admin Dose 3.294 MLS/HR; Start 02/15/19 at 01:00 Miscellaneous Information (Pending Santyl Order For Wound Care) This patient slaughter... PRN PRN XX WOUND CARE; Start 02/15/19 at 11:30 Vancomycin HCl 100 ml @ 100 mls/hr Q24H IVPB Last administered on 02/15/19at 20:52; Admin Dose 100 MLS/HR; Start 02/15/19 at 20:00 Sodium Chloride 1,000 ml @ 200 mls/hr Q5H IV Last administered on 02/16/19at 16:53; Admin Dose 200 MLS/HR; Start 02/16/19 at 07:30 Collagenase (Santyl) 1 applic BID TOP ; Start 02/16/19 at 21:00 JANINE BETHEA MD Feb 16, 2019 17:07
[2019-02-16] MEDS ORDERED: VANCOMYCIN 750 MG (PMX) 250 ML IVPB SCH (18:00)
[2019-02-16] MEDS: VANCOMYCIN 500 MG (PMX) 100 ML IVPB SCH (21:17)
[2019-02-16] MEDS: BALSAM PERU/CASTOR OIL 60 GM TUBE TOP SCH (21:25)
[2019-02-16] MEDS: COLLAGENASE 5 GM (UD JAR) TOP SCH (21:26)
[2019-02-17] VITALS (38 sets, daily range): BP systolic 107–143; BP diastolic 48–67; PULSE 64–85; RESP 10–23
[2019-02-17] MEDS: SOD CHLORIDE 0.45% 1,000 ML IV SCH ×3 (01:16→09:07)
[2019-02-17] MEDS: PIPER-TAZO 3.375 GM IV (PMX) 100 ML IVPB SCH ×3 (01:16→18:08)
[2019-02-17] MEDS: INSULIN ASPART [NOVOLOG] 3 ML PEN SC SCH ×6 (01:20→20:36)
[2019-02-17] MEDS: ACCU-CHEK XX SCH (01:44)
--- NOTE | 2019-02-17 07:44 | CONS ---
Assessment/Plan Assessment/Plan Assessment/Plan (Daily) Vent dependent respiratory failure Urosepsis not on pressors Dementia unknown severity based on complete database from facility Negative work-up for acute process Acute kidney injury secondary to sepsis Fluid and electrolyte abnormalities secondary to sepsis Improving Type 2 diabetes Patient is a full code schedule family conference as soon as possible. Overall prognosis extremely poor. Consultation Date/Type/Reason Admit Date/Time Feb 14, 2019 at 19:18 Date/Time of Note DATE: 02/17/19 TIME: 07:44 Hx of Present Illness We have an incomplete database but what is known that this is an 88-year-old female who was sent from [facility] at septic shock she was intubated in the emergency room. Comorbid medical problems that is known this time based upon what was sent from facility include hypertension, dementia, type 2 diabetes, bilateral knee amputation baseline mental status insofar degree of dementia unknown. Patient demented intubated unable to participate no family members at the bedside. Past Medical History Medical History: other (As per history of present illness otherwise incomplete database) Home Meds Reported Medications Acetaminophen* (Acetaminophen*) 325 Mg Tablet, 650 MG GTB Q6H PRN for MILD PAIN LEVEL 1-3, #30 TAB AND FEVER>101F 02/14/19 Clonidine Hcl* (Clonidine Hcl*) 0.1 Mg Tab, 0.1 MG GTB Q6, TAB 02/14/19 Docusate Sodium* (Docusate Sodium* Liq) 50 Mg/5 Ml Liquid, 10 ML GTB DAILY, ML 02/14/19 Omeprazole* (Omeprazole*) 20 Mg Capsule.dr, 20 MG GTB DAILY, #30 CAP 02/14/19 Ipratropium-Albuterol (Ipratropium-Albuterol) 0.5-3 Mg/3 Ml Ampul.neb, 3 ML INHALATION Q4H PRN for NEEDED, #30 VIAL 02/14/19 Clonidine Patch (CLONIDINE PATCH) Unknown Strength Patch, 1 PATCH TD Q SAT, #4 PATCH.WK 0.1MG/24HR 02/14/19 Lisinopril* (Lisinopril*) 10 Mg Tablet, 10 MG GTB DAILY, #30 TAB 02/14/19 Ascorbic Acid (Vitamin C) 500 Mg Tab, 500 MG GTB DAILY, TAB 02/14/19 Cholecalciferol* (Vitamin D3*) 1,000 Unit Tablet, 1000 UNIT GTB DAILY, TAB 02/14/19 Amlodipine Besylate* (Norvasc*) 5 Mg Tablet, 5 MG GTB BID, TAB HOLD FOR SBP<110 11/06/18 Memantine* (Namenda*) 10 Mg Tablet, 10 MG GTB BID, #60 TAB 11/06/18 Glucagon,Human Recombinant (Glucagon Emergency Kit) 1 Mg Kit, 1 MG IJ NEEDED PRN for FOR GLUCOSE<60MG/DL, KIT 11/06/18 Insulin Detemir (Levemir Flextouch) 100 Unit/1 Ml Insuln.pen, 15 UNIT SQ BID, EA 11/06/18 Gabapentin* (Gabapentin*) 300 Mg Capsule, 300 MG GTB QHS, #60 CAP 11/06/18 Atorvastatin Calcium (Atorvastatin Calcium) 10 Mg Tablet, 10 MG GTB QHS, #30 TAB 11/06/18 Donepezil* (Aricept*) 10 Mg Tablet, 10 MG GTB QPM, TAB 11/06/18 Discontinued Reported Medications Acetaminophen* (Acetaminophen*) 500 MG Extra Strength Tablet, 500 MG PO Q6H PRN for FOR FEVER>101, TAB 11/06/18 Magnesium Hydroxide/Al Hydrox (DAREN-MOX ANTACID SUSPENSION) 355 Ml Oral.susp, 30 ML PO Q6H 11/06/18 Megestrol Acetate* (Megace ES*) Unknown Strength Oral.susp, 10 ML PO BID, ML MEGACE 40MG/ML, STOP DATE 11/29/18 11/06/18 Metformin Hcl* (Metformin Hcl*) 500 Mg Tablet, 250 MG PO WITH BREAKFAST DINNE, #60 TAB 11/06/18 Pantoprazole* (Pantoprazole*) 40 Mg Tablet.dr, 40 MG PO AC BREAKFAST, TAB 11/06/18 Hydralazine Hcl* (Hydralazine Hcl*) 25 Mg Tab, 25 MG PO Q8 PRN for FOR SBP>150, #90 TAB 11/06/18 Ondansetron Hcl* (Zofran*) 4 Mg Tab, 4 MG PO Q4H PRN for NAUSEA AND OR VOMITING, TAB 11/06/18 Dextran 70/Hypromellose/Pf (ARTIFICIAL TEARS DROPS) 1 Each Droperette, 1 EACH OP Q12H 11/06/18 Metoprolol Tartrate* (Lopressor*) 25 Mg Tab, 25 MG PO BID, #60 TAB HOLD IF SBP<120 OR HR<60 11/06/18 Cholecalciferol (Vitamin D3) 5,000 Unit Tablet, 5000 UNIT PO DAILY, TAB 11/06/18 Multivitamin with Minerals (Multivitamins with Minerals) 1 Each Tablet, 1 EACH PO DAILY, TAB 11/06/18 Folic Acid* (Folic Acid*) 1 Mg Tablet, 1 MG PO DAILY, TAB 11/06/18 Ferrous Sulfate* (Ferrous Sulfate*) 325 Mg Tabec, 325 MG PO DAILY, TAB 11/06/18 Cranberry Fruit Concentrate (CRANBERRY) 450 Mg Capsule, 405 MG PO DAILY, CAP 11/06/18 Docusate Sodium* (Colace*) 100 Mg Capsule, 100 MG PO DAILY, #30 CAP 11/06/18 Aspirin* (Aspirin* EC) 81 Mg Tablet.dr, 81 MG PO DAILY, TAB 11/06/18 Medications Current Medications IV Flush (NS 3 ml) 3 ml PER PROTOCOL IV ; Start 02/14/19 at 20:00 Ondansetron HCl (Zofran Inj) 4 mg Q6H PRN IV NAUSEA/VOMITING; Start 02/14/19 at 20:00 Morphine Sulfate (morphine) 2 mg Q4H PRN IV .SEVERE PAIN 7-10; Start 02/14/19 at 20:00 Docusate Sodium (Colace) 100 mg Q12H PRN PO .CONSTIPATION; Start 02/14/19 at 20:00 Diagnostic Test (Pha) (Accu-Chek) 1 ea 02 XX Last administered on 02/15/19at 01:52; Admin Dose 1 EA; Start 02/15/19 at 02:00 Insulin Aspart (Novolog Insulin Pen) NOVOLOG *MILD* ALGORI... Q4 SC Last administered on 02/17/19at 06:30; Admin Dose 4 UNIT; Start 02/14/19 at 21:00 Vancomycin HCl (Vanco Iv Per Pharmacy) VANCOMYCIN PER PHARMACY PER PROTOCOL XX ; Start 02/14/19 at 20:00 Piperacillin Sod/ Tazobactam Sod 100 ml @ 200 mls/hr Q8H IVPB Last adm inistered on 02/17/19at 01:16; Admin Dose 200 MLS/HR; Start 02/15/19 at 02:00 Miscellaneous Information 1 ea NOTE XX ; Start 02/14/19 at 20:00 Glucose (Glutose) 15 gm Q15M PRN PO DECREASED GLUCOSE; Start 02/14/19 at 20:00 Glucose (Glutose) 22.5 gm Q15M PRN PO DECREASED GLUCOSE; Start 02/14/19 at 20:00 Dextrose (D50w Syringe) 25 ml Q15M PRN IV DECREASED GLUCOSE; Start 02/14/19 at 20:00 Dextrose (D50w Syringe) 50 ml Q15M PRN IV DECREASED GLUCOSE; Start 02/14/19 at 20:00 Glucagon (Glucagen) 1 mg Q15M PRN IM DECREASED GLUCOSE; Start 02/14/19 at 20:00 Glucose (Glutose) 15 gm Q15M PRN BUCCAL DECREASED GLUCOSE; Start 02/14/19 at 20:00 Famotidine (Pepcid Iv) 20 mg DAILY IV Last administered on 02/16/19at 08:40; Admin Dose 20 MG; Start 02/15/19 at 09:00 Norepinephrine 250 ml @ 1.875 mls/ hr TITRATE IV Last administered on 02/14/19at 21:11; Admin Dose 15 MLS/HR; Start 02/14/19 at 21:00 Propofol 100 ml @ 1.647 mls/ hr Q12H IV Last administered on 02/16/19 21:17; Admin Dose 3.294 MLS/HR; Start 02/15/19 at 01:00 Miscellaneous Information (Pending Santyl Order For Wound Care) This patient slaughter... PRN PRN XX WOUND CARE; Start 02/15/19 at 11:30 Vancomycin HCl 100 ml @ 100 mls/hr Q24H IVPB Last administered on 02/16/19at 21:17; Admin Dose 100 MLS/HR; Start 02/15/19 at 20:00 Sodium Chloride 1,000 ml @ 50 mls/hr Q20H IV Last administered on 02/17/19at 06:43; Admin Dose 200 MLS/HR; Start 02/16/19 at 07:30 Collagenase (Santyl) 1 applic BID TOP Last administered on 02/16/19at 21:26; Admin Dose 1 APPLIC; Start 02/16/19 at 21:00 Sodium Phosphate (Neutra-Phos) 250 mg BID GTB ; Start 02/17/19 at 09:00 Allergies: Coded Allergies: No Known Allergies (Verified Allergy, Mild, 02/14/19) Social History Alcohol Use: none Smoking Status: Unknown if ever smoked Drug Use: none Exam/Review of Systems Exam Vitals Vital Signs Date Temp Pulse Resp B/P (MAP) Pulse Ox O2 O2 Flow FiO2 Time Delivery Rate 02/17/19 76 18 136/61 99 06:30 (86) 02/17/19 98.2 06:00 02/17/19 30 05:42 02/16/19 Mechanical 20:00 Ventilator 02/14/19 6.0 23:30 Intake and Output 02/16/19 02/16/19 02/17/19 1515:00 23:00 07:00 IntakeIntake Total 1199.87 ml 1135.96 ml 1332.4 ml OutputOutput Total 335 ml 335 ml 310 ml BalanceBalance 864.87 ml 800.96 ml 1022.4 ml Constitutional: frail, other (Sedated) Head: normocephalic, atraumatic; No lacerations, No hematomas, No other Eyes: nl conjunctiva, EOMI, nl lids, nl sclera, PERRL; No icteric, No fundi, disc, No other Respiratory: clear to auscultation, normal air movement; No congested cough, No crackles/rales, No diminished breath sounds, No intercostal retraction, No labored breathing, No respirations, No tactile fremitus, No wheezing, No other Cardiovascular: regular rate and rhythm, nl pulses; No bruits, No diastolic murmur, No edema, No gallop, No irregular rhythm, No jugular venous distention (JVD), No murmurs/extra sounds, No rub, No systolic murmur, No S3, No S4, No other Gastrointestinal: soft, nl liver, spleen, non-tender; No ascites, No bowel sounds, No distended, No firm, No hepatomegaly, No mass, No rebound or guarding, No splenomegaly, No surgical scars, No tender, No other Neurological: unresponsive, other (Sedated) Results Result Diagram: 02/17/19 0430 02/17/19 0430 Results 24hrs Laboratory Tests Test 02/16/19 08:39 02/16/19 11:50 02/16/19 12:31 02/16/19 16:58 Bedside Glucose 202 189 241 H Blood Gas Specimen Blood arterial Source Arterial Blood 02/16/2019 11:46:31 Date Drawn AM Arterial Blood pH 7.455 H (Temp corrected) Arterial Blood 31.2 L pCO2 (Temp correct) Arterial Blood pO2 141.2 H (Temp corrected) Arterial Blood 21.4 L HCO3 Arterial Blood -1.8 Base Excess Arterial Blood 98.9 Oxygen Saturation Jim Test N/A Arterial Blood Gas Right Brachial Puncture Site Arterial 0.3 Blood Carboxyhemog lobin Arterial Blood 0.1 Methemoglobin Blood Gas A-a O2 36.0 H Differential Oxyhemoglobin 98.5 Percent Blood Gas 37.0 Temperature Blood Gas Actual 17 Respiration Rate Blood Gas Modality VENT - CPAP FiO2 30.0 Blood Gas Low PEEP 5.0 Setting Blood Gas Pressure 10 Support Blood Gas Notified TM Whom Blood Gas Notified 02/16/2019 11:55:17 Time AM Test 02/16/19 21:22 02/17/19 01:18 02/17/19 04:30 02/17/19 06:26 Bedside Glucose 236 H 211 286 H White Blood Count 13.7 H Red Blood Count 2.79 L Hemoglobin 8.0 L Hematocrit 26.4 L Mean Corpuscular 94.6 Volume Mean Corpuscular 28.7 L Hemoglobin Mean Corpuscular 30.3 L Hemoglobin Concent Red Cell 15.0 H Distribution Width Platelet Count 294 Mean Platelet 11.1 H Volume Immature 0.500 H Granulocytes % Neutrophils % 85.4 H Lymphocytes % 8.0 L Monocytes % 3.9 Eosinophils % 2.0 Basophils % 0.2 Nucleated Red 0.0 Blood Cells % Immature 0.070 H Granulocytes # Neutrophils # 11.7 H Lymphocytes # 1.1 Monocytes # 0.5 Eosinophils # 0.3 Basophils # 0.0 Nucleated Red 0.0 Blood Cells # Sodium Level 150 H Potassium Level 3.5 Chloride Level 122 H Carbon Dioxide 24 Level Anion Gap 4 L Blood Urea 30 #H Nitrogen Creatinine 0.71 Est Glomerular Filtrat Rate mL/min Glucose Level 264 H Calcium Level 8.5 Phosphorus Level 1.8 #L Magnesium Level 2.2 Medications Medication Current Medications IV Flush (NS 3 ml) 3 ml PER PROTOCOL IV ; Start 02/14/19 at 20:00 Ondansetron HCl (Zofran Inj) 4 mg Q6H PRN IV NAUSEA/VOMITING; Start 02/14/19 at 20:00 Morphine Sulfate (morphine) 2 mg Q4H PRN IV .SEVERE PAIN 7-10; Start 02/14/19 at 20:00 Docusate Sodium (Colace) 100 mg Q12H PRN PO .CONSTIPATION; Start 02/14/19 at 2 0:00 Diagnostic Test (Pha) (Accu-Chek) 1 ea 02 XX Last administered on 02/15/19at 01:52; Admin Dose 1 EA; Start 02/15/19 at 02:00 Insulin Aspart (Novolog Insulin Pen) NOVOLOG *MILD* ALGORI... Q4 SC Last administered on 02/17/19at 06:30; Admin Dose 4 UNIT; Start 02/14/19 at 21:00 Vancomycin HCl (Vanco Iv Per Pharmacy) VANCOMYCIN PER PHARMACY PER PROTOCOL XX ; Start 02/14/19 at 20:00 Piperacillin Sod/ Tazobactam Sod 100 ml @ 200 mls/hr Q8H IVPB Last administered on 02/17/19at 01:16; Admin Dose 200 MLS/HR; Start 02/15/19 at 02:00 Miscellaneous Information 1 ea NOTE XX ; Start 02/14/19 at 20:00 Glucose (Glutose) 15 gm Q15M PRN PO DECREASED GLUCOSE; Start 02/14/19 at 20:00 Glucose (Glutose) 22.5 gm Q15M PRN PO DECREASED GLUCOSE; Start 02/14/19 at 20:00 Dextrose (D50w Syringe) 25 ml Q15M PRN IV DECREASED GLUCOSE; Start 02/14/19 at 20:00 Dextrose (D50w Syringe) 50 ml Q15M PRN IV DECREASED GLUCOSE; Start 02/14/19 at 20:00 Glucagon (Glucagen) 1 mg Q15M PRN IM DECREASED GLUCOSE; Start 02/14/19 at 20:00 Glucose (Glutose) 15 gm Q15M PRN BUCCAL DECREASED GLUCOSE; Start 02/14/19 at 20:00 Famotidine (Pepcid Iv) 20 mg DAILY IV Last administered on 02/16/19at 08:40; Admin Dose 20 MG; Start 02/15/19 at 09:00 Norepinephrine 250 ml @ 1.875 mls/ hr TITRATE IV Last administered on 02/14/19at 21:11; Admin Dose 15 MLS/HR; Start 02/14/19 at 21:00 Propofol 100 ml @ 1.647 mls/ hr Q12H IV Last administered on 02/16/19 21:17; Admin Dose 3.294 MLS/HR; Start 02/15/19 at 01:00 Miscellaneous Information (Pending Santyl Order For Wound Care) This patient slaughter... PRN PRN XX WOUND CARE; Start 02/15/19 at 11:30 Vancomycin HCl 100 ml @ 100 mls/hr Q24H IVPB Last administered on 02/16/19 21:17; Admin Dose 100 MLS/HR; Start 02/15/19 at 20:00 Sodium Chloride 1,000 ml @ 50 mls/hr Q20H IV Last administered on 02/17/19 06 :43; Admin Dose 200 MLS/HR; Start 02/16/19 at 07:30 Collagenase (Santyl) 1 applic BID TOP Last administered on 02/16/19 21:26; Admin Dose 1 APPLIC; Start 02/16/19 at 21:00 Sodium Phosphate (Neutra-Phos) 250 mg BID GTB ; Start 02/17/19 at 09:00 KP THAKKAR Feb 17, 2019 07:44
--- NOTE | 2019-02-17 07:48 | PN ---
DATE: 02/17/2019 SUBJECTIVE: The patient remains critically ill on full ventilatory support. The patient is off pres sors. No other acute events noted. No hemoptysis, hematemesis or hematochezia. OBJECTIVE: VITAL SIGNS: Blood pressure is 136/64, respiration 19, pulse 76, temperature 98.2. HEENT: Head is normocephalic. NECK: Supple. HEART: Regular rate. LUNGS: Show diminished breath sounds at the base. ABDOMEN: Soft, nontender to palpation without rebound or guarding. EXTREMITIES: Negative for clubbing, cyanosis, no edema. DERMATOLOGIC: No rashes. MUSCULOSKELETAL: No joint effusion. NEUROLOGIC: No change in exam. MEDICATIONS: Have been reviewed. LABORATORY DATA: Has been reviewed. IMAGING STUDIES: Have been reviewed. ASSESSMENT AND PLAN: 1. Nonoliguric acute kidney injury with previous baseline creatinine of 0.5 mg/dL. Etiology of acut e kidney injury is secondary to sepsis, shock, hemodynamics. Renal function is improving. Continue current treatment plan, supportive care, renally dose all meds. 2. Hyponatremia. Etiology is felt to be secondary to insensible losses. However, we will check a u rinary osmolarity to rule out diabetes insipidus. Possible nephrogenic component due to acute kidney injury. Otherwise will increase free water flushes 400 mL q.4 hours. Continue hypertonic fluid and monitor sodium levels closely. 3. Hypokalemia. Continue to monitor and replete. 4. Anemia. Monitor hemoglobin and hematocrit levels. 5. Mineral bone disorder, monitor calcium and phosphorus levels. 6. Septic shock secondary to urinary tract infection. The patient is currently on pressor support. Continue antibiotic therapy. 7. Ventilator-dependent respiratory failure. Vent settings and ABG has been reviewed. Continue to monitor. 8. Acute on chronic encephalopathy, etiology toxic metabolic. 9. History of hypertension. 10. Diabetes. Continue current insulin regimen. 11. History of Alzheimer dementia. Dictated By: NORBERT PAINTER/NTS Conf#: [id number] DID#: [id number] CC: GALO WU MD;*EndCC*
--- NOTE | 2019-02-17 08:52 | CONS ---
Assessment/Plan Assessment/Plan Assessment/Plan (Daily) Ventilator setting; SIMV of 10, pressure support of 14, tidal volume 450, PEEP of 5, 30% FiO2. Assessment recommendations; 1. Patient admitted with sepsis due to UTI due to enterococcus with interval clinical improvement. 2. Likely underlying dementia. 3. Decubitus ulcers involving sacrum. Possibly another source of infection. 4. Prior history of G-tube placement due to her chronic dysphagia. Continue current supportive care. Perform another CPAP trial. If the patient does well on CPAP, I would recommend extubating the patient. Patient is sufficiently awake to most likely protect her airway. Discussed with nurse. 35 minutes of critical care time was spent evaluating the patient. Consultation Date/Type/Reason Admit Date/Time Feb 14, 2019 at 19:18 Initial Consult Date Type of Consult Pulmonary/critical care Patient condition remains critical. Still remains ventilator dependent. Patient was given a CPAP trial yesterday, she was not extubated because of persistently poor mental status. Patient however has remained hemodynamically stable. General exam; elderly woman, orally intubated, awake but noncommunicative. Currently in no distress. Reason for Consultation HEENT exam; supple neck, no JVD. No lymphadenopathy. Midline trachea. No thyromegaly. Orally intubated. Chest exam; clear to auscultation. S1-S2 audible, no murmurs. Regular rhythm. Abdomen exam; soft, no organomegaly. G-tube in place. Bowel sounds are audible. Extremity exam; trace edema. DRAMATIC CRITIC exam; patient is awake but does not follow any commands. Date/Time of Note DATE: 02/17/19 TIME: 08:49 Exam/Review of Systems Exam Vitals Vital Signs Date Temp Pulse Resp B/P (MAP) Pulse Ox O2 O2 Flow FiO2 Time Delivery Rate 02/17/19 78 08:00 02/17/19 18 136/61 99 06:30 (86) 02/17/19 98.2 06:00 02/17/19 30 05:42 02/16/19 Mechanical 20:00 Ventilator 02/14/19 6.0 23:30 Intake and Output 02/16/19 02/16/19 02/17/19 1515:00 23:00 07:00 IntakeIntake Total 1199.87 ml 1135.96 ml 1332.4 ml OutputOutput Total 335 ml 335 ml 310 ml BalanceBalance 864.87 ml 800.96 ml 1022.4 ml Results Result Diagram: 02/17/19 0430 02/17/19 0430 Results 24hrs Laboratory Tests Test 02/16/19 11:50 02/16/19 12:31 02/16/19 16:58 02/16/19 21:22 Blood Gas Specimen Blood arterial Source Arterial Blood 02/16/2019 11:46:31 Date Drawn AM Arterial Blood pH 7.455 H (Temp corrected) Arterial Blood 31.2 L pCO2 (Temp correct) Arterial Blood pO2 141.2 H (Temp corrected) Arterial Blood 21.4 L HCO3 Arterial Blood -1.8 Base Excess Arterial Blood 98.9 Oxygen Saturation Jim Test N/A Arterial Blood Gas Right Brachial Puncture Site Arterial 0.3 Blood Carboxyhemog lobin Arterial Blood 0.1 Methemoglobin Blood Gas A-a O2 36.0 H Differential Oxyhemoglobin 98.5 Percent Blood Gas 37.0 Temperature Blood Gas Actual 17 Respiration Rate Blood Gas Modality VENT - CPAP FiO2 30.0 Blood Gas Low PEEP 5.0 Setting Blood Gas Pressure 10 Support Blood Gas Notified TM Whom Blood Gas Notified 02/16/2019 11:55:17 Time AM Bedside Glucose 189 241 H 236 H Test 02/17/19 01:18 02/17/19 04:30 02/17/19 06:26 Bedside Glucose 211 286 H White Blood Count 13.7 H Red Blood Count 2.79 L Hemoglobin 8.0 L Hematocrit 26.4 L Mean Corpuscular 94.6 Volume Mean Corpuscular 28.7 L Hemoglobin Mean Corpuscular 30.3 L Hemoglobin Concent Red Cell 15.0 H Distribution Width Platelet Count 294 Mean Platelet 11.1 H Volume Immature 0.500 H Granulocytes % Neutrophils % 85.4 H Lymphocytes % 8.0 L Monocytes % 3.9 Eosinophils % 2.0 Basophils % 0.2 Nucleated Red 0.0 Blood Cells % Immature 0.070 H Granulocytes # Neutrophils # 11.7 H Lymphocytes # 1.1 Monocytes # 0.5 Eosinophils # 0.3 Basophils # 0.0 Nucleated Red 0.0 Blood Cells # Sodium Level 150 H Potassium Level 3.5 Chloride Level 122 H Carbon Dioxide 24 Level Anion Gap 4 L Blood Urea 30 #H Nitrogen Creatinine 0.71 Est Glomerular Filtrat Rate mL/min Glucose Level 264 H Calcium Level 8.5 Phosphorus Level 1.8 #L Magnesium Level 2.2 Medications Medication Current Medications IV Flush (NS 3 ml) 3 ml PER PROTOCOL IV ; Start 02/14/19 at 20:00 Ondansetron HCl (Zofran Inj) 4 mg Q6H PRN IV NAUSEA/VOMITING; Start 02/14/19 at 20:00 Morphine Sulfate (morphine) 2 mg Q4H PRN IV .SEVERE PAIN 7-10; Start 02/14/19 at 20:00 Docusate Sodium (Colace) 100 mg Q12H PRN PO .CONSTIPATION; Start 02/14/19 at 20:00 Diagnostic Test (Pha) (Accu-Chek) 1 ea 02 XX Last administered on 02/15/19at 01:52; Admin Dose 1 EA; Start 02/15/19 at 02:00 Insulin Aspart (Novolog Insulin Pen) NOVOLOG *MILD* ALGORI... Q4 SC Last administered on 02/17/19at 06:30; Admin Dose 4 UNIT; Start 02/14/19 at 21:00 Vancomycin HCl (Vanco Iv Per Pharmacy) VANCOMYCIN PER PHARMACY PER PROTOCOL XX ; Start 02/14/19 at 20:00 Piperacillin Sod/ Tazobactam Sod 100 ml @ 200 mls/hr Q8H IVPB Last administered on 02/17/19at 01:16; Admin Dose 200 MLS/HR; Start 02/15/19 at 02:00 Miscellaneous Information 1 ea NOTE XX ; Start 02/14/19 at 20:00 Glucose (Glutose) 15 gm Q15M PRN PO DECREASED GLUCOSE; Start 02/14/19 at 20:00 Glucose (Glutose) 22.5 gm Q15M PRN PO DECREASED GLUCOSE; Start 02/14/19 at 20:00 Dextrose (D50w Syringe) 25 ml Q15M PRN IV DECREASED GLUCOSE; Start 02/14/19 at 20:00 Dextrose (D50w Syringe) 50 ml Q15M PRN IV DECREASED GLUCOSE; Start 02/14/19 at 20:00 Glucagon (Glucagen) 1 mg Q15M PRN IM DECREASED GLUCOSE; Start 02/14/19 at 20:00 Glucose (Glutose) 15 gm Q15M PRN BUCCAL DECREASED GLUCOSE; Start 02/14/19 at 20:00 Famotidine (Pepcid Iv) 20 mg DAILY IV Last administered on 02/16/19 08:40; Admin Dose 20 MG; Start 02/15/19 at 09:00 Norepinephrine 250 ml @ 1.875 mls/ hr TITRATE IV Last administered on 02/14/19 21:11; Admin Dose 15 MLS/HR; Start 02/14/19 at 21:00 Propofol 100 ml @ 1.647 mls/ hr Q12H IV Last administered on 02/16/19 21:17; Admin Dose 3.294 MLS/HR; Start 02/15/19 at 01:00 Miscellaneous Information (Pending Santyl Order For Wound Care) This patient slaughter. .. PRN PRN XX WOUND CARE; Start 02/15/19 at 11:30 Vancomycin HCl 100 ml @ 100 mls/hr Q24H IVPB Last administered on 02/16/19 21:17; Admin Dose 100 MLS/HR; Start 02/15/19 at 20:00 Sodium Chloride 1,000 ml @ 50 mls/hr Q20H IV Last administered on 02/17/19 06:43; Admin Dose 200 MLS/HR; Start 02/16/19 at 07:30 Collagenase (Santyl) 1 applic BID TOP Last administered on 02/16/19 21:26; Admin Dose 1 APPLIC; Start 02/16/19 at 21:00 Sodium Phosphate (Neutra-Phos) 250 mg BID GTB ; Start 02/17/19 at 09:00 MIGEL VASQUEZ Feb 17, 2019 08:52
[2019-02-17] MEDS: FAMOTIDINE 20 MG INJ IV SCH (08:55)
[2019-02-17] MEDS: NEUTRA-PHOS 250 MG PACKET GTB SCH ×2 (08:55→20:32)
[2019-02-17] MEDS: BALSAM PERU/CASTOR OIL 60 GM TUBE TOP SCH ×2 (08:55→20:33)
[2019-02-17] MEDS: COLLAGENASE 5 GM (UD JAR) TOP SCH ×2 (09:03→20:32)
[2019-02-17] MEDS: INSULIN GLARGINE [LANTus] (100 UNITS/ML) SYG SC SCH (11:55)
--- NOTE | 2019-02-17 11:59 | CONS ---
Assessment/Plan Assessment/Plan Hospital Course (Demo Recall) No acute changes overnight. Patient is on CPAP, awake and looks comfortable. No fevers. WBC 13.7 platelets 294 neutrophils 85.4 BUN 30 creatinine 0.71 Indwelling: Endotracheal tube, NG tube, Spann, right IJ triple-lumen catheter Antimicrobials: Vancomycin, Zosyn Physical examination: Well-developed fragile elderly woman who is awake in no distress. Head atraumatic normocephalic neck is supple chest rise symmetrical breath sounds diminished to bases. Heart: S1-S2. Abdomen soft bowel sounds present. Assessment: 1. Resolving sepsis 2. Enterococcal UTI 3. Dementia 4. Pneumonia, resolving 5. Hypertension 6. Diabetes Plan: Patient is stable, tolerated weaning trials, continue Zosyn DC vancomycin, vent per pulmonary Consultation Date/Type/Reason Admit Date/Time Feb 14, 2019 at 19:18 Initial Consult Date Type of Consult id Date/Time of Note DATE: 02/17/19 TIME: 11:59 Exam/Review of Systems Exam Vitals Vital Signs Date Temp Pulse Resp B/P (MAP) Pulse Ox O2 O2 Flow FiO2 Time Delivery Rate 02/17/19 79 13 118/58 100 CPAP 11:00 (78) Mechanical Ventilator 02/17/19 30 09:20 02/17/19 98.9 08:00 02/14/19 6.0 23:30 Intake and Output 02/16/19 02/16/19 02/17/19 1515:00 23:00 07:00 IntakeIntake Total 1199.87 ml 1135.96 ml 1365.694 ml OutputOutput Total 335 ml 335 ml 330 ml BalanceBalance 864.87 ml 800.96 ml 1035.694 ml Results Result Diagram: 02/17/19 0430 02/17/19 0430 Results 24hrs Laboratory Tests Test 02/16/19 12:31 02/16/19 16:58 02/16/19 21:22 02/17/19 01:18 Bedside Glucose 189 241 H 236 H 211 Test 02/17/19 04:30 02/17/19 06:26 02/17/19 09:01 02/17/19 11:20 White Blood Count 13.7 H Red Blood Count 2.79 L Hemoglobin 8.0 L Hematocrit 26.4 L Mean Corpuscular 94.6 Volume Mean Corpuscular 28.7 L Hemoglobin Mean Corpuscular 30.3 L Hemoglobin Concent Red Cell 15.0 H Distribution Width Platelet Count 294 Mean Platelet 11.1 H Volume Immature 0.500 H Granulocytes % Neutrophils % 85.4 H Lymphocytes % 8.0 L Monocytes % 3.9 Eosinophils % 2.0 Basophils % 0.2 Nucleated Red 0.0 Blood Cells % Immature 0.070 H Granulocytes # Neutrophils # 11.7 H Lymphocytes # 1.1 Monocytes # 0.5 Eosinophils # 0.3 Basophils # 0.0 Nucleated Red 0.0 Blood Cells # Sodium Level 150 H Potassium Level 3.5 Chloride Level 122 H Carbon Dioxide 24 Level Anion Gap 4 L Blood Urea 30 #H Nitrogen Creatinine 0.71 Est Glomerular Filtrat Rate mL/min Glucose Level 264 H Calcium Level 8.5 Phosphorus Level 1.8 #L Magnesium Level 2.2 Bedside Glucose 286 H 282 H Blood Gas Specimen Blood arterial Source Arterial Blood 02/17/2019 11:10:31 Date Drawn AM Arterial Blood pH 7.492 H (Temp corrected) Arterial Blood 27.9 L pCO2 (Temp correct) Arterial Blood pO2 144.7 H (Temp corrected) Arterial Blood 20.9 L HCO3 Arterial Blood -1.8 Base Excess Arterial Blood 98.9 Oxygen Saturation Jim Test ACCEPTAB Arterial Blood Gas Left Radial Puncture Site Arterial 0.3 Blood Carboxyhemog lobin Arterial Blood 0.3 Methemoglobin Blood Gas A-a O2 36.4 H Differential Oxyhemoglobin 98.3 Percent Blood Gas 37.0 Temperature Blood Gas Actual 17 Respiration Rate Blood Gas Modality VENT - CPAP FiO2 30.0 Blood Gas Low PEEP 5.0 Setting Blood Gas Pressure 10 Support Blood Gas Notified TM Whom Blood Gas Notified 02/17/2019 11:35:13 Time AM Test 02/17/19 11:51 Bedside Glucose 221 H Medications Medication Current Medications IV Flush (NS 3 ml) 3 ml PER PROTOCOL IV ; Start 02/14/19 at 20:00 Ondansetron HCl (Zofran Inj) 4 mg Q6H PRN IV NAUSEA/VOMITING; Start 02/14/19 at 20:00 Morphine Sulfate (morphine) 2 mg Q4H PRN IV .SEVERE PAIN 7-10; Start 02/14/19 at 20:00 Docusate Sodium (Colace) 100 mg Q12H PRN PO .CONSTIPATION; Start 02/14/19 at 20:00 Diagnostic Test (Pha) (Accu-Chek) 1 ea 02 XX Last administered on 02/15/19at 01:52; Admin Dose 1 EA; Start 02/15/19 at 02:00 Insulin Aspart (Novolog Insulin Pen) NOVOLOG *MILD* ALGORI... Q4 SC Last administered on 02/17/19at 09:08; Admin Dose 4 UNIT; Start 02/14/19 at 21:00 Vancomycin HCl (Vanco Iv Per Pharmacy) VANCOMYCIN PER PHARMACY PER PROTOCOL XX ; Start 02/14/19 at 20:00 Piperacillin Sod/ Tazobactam Sod 100 ml @ 200 mls/hr Q8H IVPB Last administered on 02/17/19at 09:03; Admin Dose 200 MLS/HR; Start 02/15/19 at 02:00 Miscellaneous Information 1 ea NOTE XX ; Start 02/14/19 at 20:00 Glucose (Glutose) 15 gm Q15M PRN PO DECREASED GLUCOSE; Start 02/14/19 at 20:00 Glucose (Glutose) 22.5 gm Q15M PRN PO DECREASED GLUCOSE; Start 02/14/19 at 20:00 Dextrose (D50w Syringe) 25 ml Q15M PRN IV DECREASED GLUCOSE; Start 02/14/19 at 20:00 Dextrose (D50w Syringe) 50 ml Q15M PRN IV DECREASED GLUCOSE; Start 02/14/19 at 20:00 Glucagon (Glucagen) 1 mg Q15M PRN IM DECREASED GLUCOSE; Start 02/14/19 at 20:00 Glucose (Glutose) 15 gm Q15M PRN BUCCAL DECREASED GLUCOSE; Start 02/14/19 at 20:00 Famotidine (Pepcid Iv) 20 mg DAILY IV Last administered on 02/17/19at 08:55; Admin Dose 20 MG; Start 02/15/19 at 09:00 Propofol 100 ml @ 1.647 mls/ hr Q12H IV Last administered on 02/16/19at 21:17; Admin Dose 3.294 MLS/HR; Start 02/15/19 at 01:00 Miscellaneous Information ([facility]) This patient slaughter... PRN PRN XX WOUND CARE; Start 02/15/19 at 11:30 Vancomycin HCl 100 ml @ 100 mls/hr Q24H IVPB Last administered on 02/16/19 21:17; Admin Dose 100 MLS/HR; Start 02/15/19 at 20:00 Sodium Chloride 1,000 ml @ 50 mls/hr Q20H IV Last administered on 02/17/19 09:07; Admin Dose 50 MLS/HR; Start 02/16/19 at 07:30 Collagenase (Santyl) 1 applic BID TOP Last administered on 02/17/19 09:03; Admin Dose 1 APPLIC; Start 02/16/19 at 21:00 Sodium Phosphate (Neutra-Phos) 250 mg BID GTB Last administered on 02/17/19 08:55; Admin Dose 250 MG; Start 02/17/19 at 09:00 Insulin Glargine (Lantus) 11 units DAILY@0800 SC Last administered on 02/17/19 11:55; Admin Dose 11 UNITS; Start 02/17/19 at 11:30 DAILY WOOD NP Feb 17, 2019 11:59
[2019-02-17] MEDS: PROPOFOL 100 ML IV SCH (13:00)
--- NOTE | 2019-02-17 16:49 | PN ---
Date/Time of Note Date/Time of Note DATE: 02/17/19 TIME: 16:48 Assessment/Plan VTE Prophylaxis Risk score (from Ns)>0 risk: 11 SCD applied (from Ns): Yes Pharmacological prophylaxis: heparin Lines/Catheters IV Catheter Type (from Nrsg): Central Line Central line still needed: Yes Urinary Cath still in place: Yes Reason Cath still needed: urinary retention Assessment/Plan Hospital Course Exubated Comfortable RRR CTAB SOft nt nd 1. Septic shock secondary to UTI Continue broad-spectrum antibiotics Pressors as needed ID consultation obtained Follow-up on cultures 2. Acute respiratory failure secondary to acute encephalopathy - s/p extubation 3. Acute on chronic encephalopathy secondary to severe sepsis on dementia Broad-spectrum antibiotics CT head with no acute findings Patient resides in a [facility] facility 4. Acute kidney injury likely secondary to severe sepsis and hemodynamics- improving Nephrology consultation appreciated IV fluids Monitor 5. Hypernatremia secondary to dehydration IV fluids Nephrology consultation appreciated 6. History of hypertension Hold home meds secondary to septic shock 7. Diabetes Sliding scale A1c at 8.7 Prophylaxis: SCDs DC planning: Not stable DC, continue management as per above Result Diagram: 02/17/19 0430 02/17/19 0430 Results 24hrs Laboratory Tests Test 02/16/19 16:58 02/16/19 21:22 02/17/19 01:18 02/17/19 04:30 Bedside Glucose 241 H 236 H 211 White Blood Count 13.7 H Red Blood Count 2.79 L Hemoglobin 8.0 L Hematocrit 26.4 L Mean Corpuscular 94.6 Volume Mean Corpuscular 28.7 L Hemoglobin Mean Corpuscular 30.3 L Hemoglobin Concent Red Cell 15.0 H Distribution Width Platelet Count 294 Mean Platelet 11.1 H Volume Immature 0.500 H Granulocytes % Neutrophils % 85.4 H Lymphocytes % 8.0 L Monocytes % 3.9 Eosinophils % 2.0 Basophils % 0.2 Nucleated Red 0.0 Blood Cells % Immature 0.070 H Granulocytes # Neutrophils # 11.7 H Lymphocytes # 1.1 Monocytes # 0.5 Eosinophils # 0.3 Basophils # 0.0 Nucleated Red 0.0 Blood Cells # Sodium Level 150 H Potassium Level 3.5 Chloride Level 122 H Carbon Dioxide 24 Level Anion Gap 4 L Blood Urea 30 #H Nitrogen Creatinine 0.71 Est Glomerular Filtrat Rate mL/min Glucose Level 264 H Calcium Level 8.5 Phosphorus Level 1.8 #L Magnesium Level 2.2 Test 02/17/19 06:26 02/17/19 09:01 02/17/19 11:15 02/17/19 11:20 Bedside Glucose 286 H 282 H Urine Osmolality 553 Blood Gas Specimen Blood arterial Source Arterial Blood 02/17/2019 11:10:31 Date Drawn AM Arterial Blood pH 7.492 H (Temp corrected) Arterial Blood 27.9 L pCO2 (Temp correct) Arterial Blood pO2 144.7 H (Temp corrected) Arterial Blood 20.9 L HCO3 Arterial Blood -1.8 Base Excess Arterial Blood 98.9 Oxygen Saturation Jim Test ACCEPTAB Arterial Blood Gas Left Radial Puncture Site Arterial 0.3 Blood Carboxyhemog lobin Arterial Blood 0.3 Methemoglobin Blood Gas A-a O2 36.4 H Differential Oxyhemoglobin 98.3 Percent Blood Gas 37.0 Temperature Blood Gas Actual 17 Respiration Rate Blood Gas Modality VENT - CPAP FiO2 30.0 Blood Gas Low PEEP 5.0 Setting Blood Gas Pressure 10 Support Blood Gas Notified TM Whom Blood Gas Notified 02/17/2019 11:35:13 Time AM Test 02/17/19 11:51 02/17/19 13:37 Bedside Glucose 221 H 216 Subjective 24 Hr Interval Summary Free Text/Dictation On CPAP trail this AM wiht extubation per chart this afternoon Exam/Review of Systems Exam Vitals Vital Signs Date Temp Pulse Resp B/P (MAP) Pulse Ox O2 O2 Flow FiO2 Time Delivery Rate 02/17/19 75 16:00 02/17/19 23 121/59 100 Nasal 3.0 15:30 (79) Cannula 02/17/19 30 14:20 02/17/19 97.9 12:00 Intake and Output 02/16/19 02/16/19 02/17/19 1515:00 23:00 07:00 IntakeIntake Total 1199.87 ml 1135.96 ml 1365.694 ml OutputOutput Total 335 ml 335 ml 330 ml BalanceBalance 864.87 ml 800.96 ml 1035.694 ml Results Results 24hrs Laboratory Tests Test 02/16/19 16:58 02/16/19 21:22 02/17/19 01:18 02/17/19 04:30 Bedside Glucose 241 H 236 H 211 White Blood Count 13.7 H Red Blood Count 2.79 L Hemoglobin 8.0 L Hematocrit 26.4 L Mean Corpuscular 94.6 Volume Mean Corpuscular 28.7 L Hemoglobin Mean Corpuscular 30.3 L Hemoglobin Concent Red Cell 15.0 H Distribution Width Platelet Count 294 Mean Platelet 11.1 H Volume Immature 0.500 H Granulocytes % Neutrophils % 85.4 H Lymphocytes % 8.0 L Monocytes % 3.9 Eosinophils % 2.0 Basophils % 0.2 Nucleated Red 0.0 Blood Cells % Immature 0.070 H Granulocytes # Neutrophils # 11.7 H Lymphocytes # 1.1 Monocytes # 0.5 Eosinophils # 0.3 Basophils # 0.0 Nucleated Red 0.0 Blood Cells # Sodium Level 150 H Potassium Level 3.5 Chloride Level 122 H Carbon Dioxide 24 Level Anion Gap 4 L Blood Urea 30 #H Nitrogen Creatinine 0.71 Est Glomerular Filtrat Rate mL/min Glucose Level 264 H Calcium Level 8.5 Phosphorus Level 1.8 #L Magnesium Level 2.2 Test 02/17/19 06:26 02/17/19 09:01 02/17/19 11:15 02/17/19 11:20 Bedside Glucose 286 H 282 H Urine Osmolality 553 Blood Gas Specimen Blood arterial Source Arterial Blood 02/17/2019 11:10:31 Date Drawn AM Arterial Blood pH 7.492 H (Temp corrected) Arterial Blood 27.9 L pCO2 (Temp correct) Arterial Blood pO2 144.7 H (Temp corrected) Arterial Blood 20.9 L HCO3 Arterial Blood -1.8 Base Excess Arterial Blood 98.9 Oxygen Saturation Jim Test ACCEPTAB Arterial Blood Gas Left Radial Puncture Site Arterial 0.3 Blood Carboxyhemog lobin Arterial Blood 0.3 Methemoglobin Blood Gas A-a O2 36.4 H Differential Oxyhemoglobin 98.3 Percent Blood Gas 37.0 Temperature Blood Gas Actual 17 Respiration Rate Blood Gas Modality VENT - CPAP FiO2 30.0 Blood Gas Low PEEP 5.0 Setting Blood Gas Pressure 10 Support Blood Gas Notified TM Whom Blood Gas Notified 02/17/2019 11:35:13 Time AM Test 02/17/19 11:51 02/17/19 13:37 Bedside Glucose 221 H 216 Medications Medication Current Medications IV Flush (NS 3 ml) 3 ml PER PROTOCOL IV ; Start 02/14/19 at 20:00 Ondansetron HCl (Zofran Inj) 4 mg Q6H PRN IV NAUSEA/VOMITING; Start 02/14/19 at 20:00 Morphine Sulfate (morphine) 2 mg Q4H PRN IV .SEVERE PAIN 7-10; Start 02/14/19 at 20:00 Docusate Sodium (Colace) 100 mg Q12H PRN PO .CONSTIPATION; Start 02/14/19 at 20:00 Diagnostic Test (Pha) (Accu-Chek) 1 ea 02 XX Last administered on 02/15/19at 01:52; Admin Dose 1 EA; Start 02/15/19 at 02:00 Insulin Aspart (Novolog Insulin Pen) NOVOLOG *MILD* ALGORI... Q4 SC Last administered on 02/17/19at 13:39; Admin Dose 2 UNIT; Start 02/14/19 at 21:00 Piperacillin Sod/ Tazobactam Sod 100 ml @ 200 mls/hr Q8H IVPB Last administered on 02/17/19at 09:03; Admin Dose 200 MLS/HR; Start 02/15/19 at 02:00 Miscellaneous Information 1 ea NOTE XX ; Start 02/14/19 at 20:00 Glucose (Glutose) 15 gm Q15M PRN PO DECREASED GLUCOSE; Start 02/14/19 at 20:00 Glucose (Glutose) 22.5 gm Q15M PRN PO DECREASED GLUCOSE; Start 02/14/19 at 20:00 Dextrose (D50w Syringe) 25 ml Q15M PRN IV DECREASED GLUCOSE; Start 02/14/19 at 20:00 Dextrose (D50w Syringe) 50 ml Q15M PRN IV DECREASED GLUCOSE; Start 02/14/19 at 20:00 Glucagon (Glucagen) 1 mg Q15M PRN IM DECREASED GLUCOSE; Start 02/14/19 at 20:00 Glucose (Glutose) 15 gm Q15M PRN BUCCAL DECREASED GLUCOSE; Start 02/14/19 at 20:00 Famotidine (Pepcid Iv) 20 mg DAILY IV Last administered on 02/17/19at 08:55; Admin Dose 20 MG; Start 02/15/19 at 09:00 Propofol 100 ml @ 1.647 mls/ hr Q12H IV Last administered on 02/16/19at 21:17; Admin Dose 3.294 MLS/HR; Start 02/15/19 at 01:00 Miscellaneous Information (Pending Santyl Order For Wound Care) This patient slaughter... PRN PRN XX WOUND CARE; Start 02/15/19 at 11:30 Sodium Chloride 1,000 ml @ 50 mls/hr Q20H IV Last administered on 02/17/19at 09: 07; Admin Dose 50 MLS/HR; Start 02/16/19 at 07:30 Collagenase (Santyl) 1 applic BID TOP Last administered on 02/17/19 09:03; Admin Dose 1 APPLIC; Start 02/16/19 at 21:00 Sodium Phosphate (Neutra-Phos) 250 mg BID GTB Last administered on 02/17/19 08:55; Admin Dose 250 MG; Start 02/17/19 at 09:00 Insulin Glargine (Lantus) 11 units DAILY@0800 SC Last administered on 02/17/19at 11:55; Admin Dose 11 UNITS; Start 02/17/19 at 11:30 JANINE BETHEA MD Feb 17, 2019 16:49
[2019-02-18] VITALS (20 sets, daily range): BP systolic 131–161; BP diastolic 53–91; PULSE 63–81; RESP 17–23
[2019-02-18] MEDS: PROPOFOL 100 ML IV SCH ×2 (00:31→12:26)
[2019-02-18] MEDS: ACCU-CHEK XX SCH (01:32)
[2019-02-18] MEDS: INSULIN ASPART [NOVOLOG] 3 ML PEN SC SCH ×6 (01:32→21:00)
[2019-02-18] MEDS: SOD CHLORIDE 0.45% 1,000 ML IV SCH (01:45)
[2019-02-18] MEDS: PIPER-TAZO 3.375 GM IV (PMX) 100 ML IVPB SCH ×3 (01:45→17:19)
[2019-02-18] MEDS ORDERED: POTASSIUM CHLORIDE 20 MEQ POWDER FOR ORAL SOLN GTB ONE (07:00)
--- NOTE | 2019-02-18 07:24 | PN ---
DATE: 02/18/2019 SUBJECTIVE: The patient is stable. The patient was extubated without any complaints. No other even ts noted overnight. No hemoptysis, hematemesis, hematochezia. OBJECTIVE: VITAL SIGNS: Blood pressure is 138/55, respirations 22, pulse 73, temperature 97.6. HEENT: Head is normocephalic. NECK: Supple. HEART: Regular rate. LUNGS: Show diminished breath sounds at the base. ABDOMEN: Soft, nontender to palpation without rebound or guarding. EXTREMITIES: Negative for clubbing, cyanosis, no edema. DERMATOLOGIC: No rashes. MUSCULOSKELETAL: No joint effusion. NEUROLOGIC: No change in exam. MEDICATIONS: Have been reviewed. LABORATORY DATA: Has been reviewed. IMAGING STUDIES: Have been reviewed. ASSESSMENT AND PLAN: 1. Nonoliguric acute kidney injury with previous baseline creatinine of 0.5 mg/dL. Etiology of acut e kidney injury is secondary to sepsis, shock. Renal function is improved. Continue current treatme nt plan, supportive care, renally dose all meds. 2. Hypernatremia. Etiology is secondary to insensible losses. No evidence of diabetes insipidus. Will continue free water flushes 400 mL every 4 hours. Monitor sodium levels. 3. Hypokalemia. Replete with potassium chloride. 4. Anemia. Monitor hemoglobin and hematocrit levels. 5. Mineral bone disorder. Monitor calcium and phosphorus levels. 6. Sepsis, status post shock secondary to urinary tract infection. The patient is currently off pre ssors. Continue antibiotic therapy. Discontinue IV fluids. 7. Respiratory failure, status post extubation. Vent settings and ABG was reviewed. Continue to mo nitor. 8. History of hypertension. 9. Diabetes. Continue current insulin regimen. 10. History of Alzheimer's dementia. Dictated By: NORBERT WALDROP DO NR/NTS Conf#: [id number] DID#: [id number] CC: GALO WU MD;*EndCC*
--- NOTE | 2019-02-18 07:51 | CONS ---
Assessment/Plan Assessment/Plan Assessment/Plan (Daily) There is been no change in patient's overall condition within the last 24 hours. I had a long conversation with patient's son Lucien this morning at 0730 hrs.. 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 We discussed overall prognosis and his options which include only continuing with this level of care or consider comfort measures. At this time he would like to speak to other family members and friends and then will contact either myself or other members of patient's medical team to discuss his decision. I have left him information as to how to contact me. Consultation Date/Type/Reason Admit Date/Time Feb 14, 2019 at 19:18 Date/Time of Note DATE: 02/18/19 TIME: 07:48 Past Medical History Medical History: other (As per history of present illness otherwise incomplete database) Home Meds Reported Medications Acetaminophen* (Acetaminophen*) 325 Mg Tablet, 650 MG GTB Q6H PRN for MILD PAIN LEVEL 1-3, #30 TAB AND FEVER>101F 02/14/19 Clonidine Hcl* (Clonidine Hcl*) 0.1 Mg Tab, 0.1 MG GTB Q6, TAB 02/14/19 Docusate Sodium* (Docusate Sodium* Liq) 50 Mg/5 Ml Liquid, 10 ML GTB DAILY, ML 02/14/19 Omeprazole* (Omeprazole*) 20 Mg Capsule.dr, 20 MG GTB DAILY, #30 CAP 02/14/19 Ipratropium-Albuterol (Ipratropium-Albuterol) 0.5-3 Mg/3 Ml Ampul.neb, 3 ML INHALATION Q4H PRN for NEEDED, #30 VIAL 02/14/19 Clonidine Patch (CLONIDINE PATCH) Unknown Strength Patch, 1 PATCH TD Q SAT, #4 PATCH.WK 0.1MG/24HR 02/14/19 Lisinopril* (Lisinopril*) 10 Mg Tablet, 10 MG GTB DAILY, #30 TAB 02/14/19 Ascorbic Acid (Vitamin C) 500 Mg Tab, 500 MG GTB DAILY, TAB 02/14/19 Cholecalciferol* (Vitamin D3*) 1,000 Unit Tablet, 1000 UNIT GTB DAILY, TAB 02/14/19 Amlodipine Besylate* (Norvasc*) 5 Mg Tablet, 5 MG GTB BID, TAB HOLD FOR SBP<110 11/06/18 Memantine* (Namenda*) 10 Mg Tablet, 10 MG GTB BID, #60 TAB 11/06/18 Glucagon,Human Recombinant (Glucagon Emergency Kit) 1 Mg Kit, 1 MG IJ NEEDED PRN for FOR GLUCOSE<60MG/DL, KIT 11/06/18 Insulin Detemir (Levemir Flextouch) 100 Unit/1 Ml Insuln.pen, 15 UNIT SQ BID, EA 11/06/18 Gabapentin* (Gabapentin*) 300 Mg Capsule, 300 MG GTB QHS, #60 CAP 11/06/18 Atorvastatin Calcium (Atorvastatin Calcium) 10 Mg Tablet, 10 MG GTB QHS, #30 TAB 11/06/18 Donepezil* (Aricept*) 10 Mg Tablet, 10 MG GTB QPM, TAB 11/06/18 Discontinued Reported Medications Acetaminophen* (Acetaminophen*) 500 MG Extra Strength Tablet, 500 MG PO Q6H PRN for FOR FEVER>101, TAB 11/06/18 Magnesium Hydroxide/Al Hydrox (DAREN-MOX ANTACID SUSPENSION) 355 Ml Oral.susp, 30 ML PO Q6H 11/06/18 Megestrol Acetate* (Megace ES*) Unknown Strength Oral.susp, 10 ML PO BID, ML MEGACE 40MG/ML, STOP DATE 11/29/18 11/06/18 Metformin Hcl* (Metformin Hcl*) 500 Mg Tablet, 250 MG PO WITH BREAKFAST DINNE, #60 TAB 11/06/18 Pantoprazole* (Pantoprazole*) 40 Mg Tablet.dr, 40 MG PO AC BREAKFAST, TAB 11/06/18 Hydralazine Hcl* (Hydralazine Hcl*) 25 Mg Tab, 25 MG PO Q8 PRN for FOR SBP>150, #90 TAB 11/06/18 Ondansetron Hcl* (Zofran*) 4 Mg Tab, 4 MG PO Q4H PRN for NAUSEA AND OR VOMITING, TAB 11/06/18 Dextran 70/Hypromellose/Pf (ARTIFICIAL TEARS DROPS) 1 Each Droperette, 1 EACH OP Q12H 11/06/18 Metoprolol Tartrate* (Lopressor*) 25 Mg Tab, 25 MG PO BID, #60 TAB HOLD IF SBP<120 OR HR<60 11/06/18 Cholecalciferol (Vitamin D3) 5,000 Unit Tablet, 5000 UNIT PO DAILY, TAB 11/06/18 Multivitamin with Minerals (Multivitamins with Minerals) 1 Each Tablet, 1 EACH PO DAILY, TAB 11/06/18 Folic Acid* (Folic Acid*) 1 Mg Tablet, 1 MG PO DAILY, TAB 11/06/18 Ferrous Sulfate* (Ferrous Sulfate*) 325 Mg Tabec, 325 MG PO DAILY, TAB 11/06/18 Cranberry Fruit Concentrate (CRANBERRY) 450 Mg Capsule, 405 MG PO DAILY, CAP 11/06/18 Docusate Sodium* (Colace*) 100 Mg Capsule, 100 MG PO DAILY, #30 CAP 11/06/18 Aspirin* (Aspirin* EC) 81 Mg Tablet.dr, 81 MG PO DAILY, TAB 11/06/18 Medications Current Medications IV Flush (NS 3 ml) 3 ml PER PROTOCOL IV ; Start 02/14/19 at 20:00 Ondansetron HCl (Zofran Inj) 4 mg Q6H PRN IV NAUSEA/VOMITING; Start 02/14/19 at 20:00 Morphine Sulfate (morphine) 2 mg Q4H PRN IV .SEVERE PAIN 7-10; Start 02/14/19 at 20:00 Docusate Sodium (Colace) 100 mg Q12H PRN PO .CONSTIPATION; Start 02/14/19 at 20:00 Diagnostic Test (Pha) (Accu-Chek) 1 ea 02 XX Last administered on 02/15/19at 01:52; Admin Dose 1 EA; Start 02/15/19 at 02:00 Insulin Aspart (Novolog Insulin Pen) NOVOLOG *MILD* ALGORI... Q4 SC Last administered on 02/18/19at 04:40; Admin Dose 1 UNIT; Start 02/14/19 at 21:00 Piperacillin Sod/ Tazobactam Sod 100 ml @ 200 mls/hr Q8H IVPB Last administered on 02/18/19at 01:45; Admin Dose 200 MLS/HR; Start 02/15/19 at 02:00 Miscellaneous Information 1 ea NOTE XX ; Start 02/14/19 at 20:00 Glucose (Glutose) 15 gm Q15M PRN PO DECREASED GLUCOSE; Start 02/14/19 at 20:00 Glucose (Glutose) 22.5 gm Q15M PRN PO DECREASED GLUCOSE; Start 02/14/19 at 20:00 Dextrose (D50w Syringe) 25 ml Q15M PRN IV DECREASED GLUCOSE; Start 02/14/19 at 20:00 Dextrose (D50w Syringe) 50 ml Q15M PRN IV DECREASED GLUCOSE; Start 02/14/19 at 20:00 Glucagon (Glucagen) 1 mg Q15M PRN IM DECREASED GLUCOSE; Start 02/14/19 at 20:00 Glucose (Glutose) 15 gm Q15M PRN BUCCAL DECREASED GLUCOSE; Start 02/14/19 at 20 :00 Famotidine (Pepcid Iv) 20 mg DAILY IV Last administered on 02/17/19at 08:55; Admin Dose 20 MG; Start 02/15/19 at 09:00 Propofol 100 ml @ 1.647 mls/ hr Q12H IV Last administered on 02/16/19at 21:17; Admin Dose 3.294 MLS/HR; Start 02/15/19 at 01:00 Miscellaneous Information (Pending Santyl Order For Wound Care) This patient slaughter... PRN PRN XX WOUND CARE; Start 02/15/19 at 11:30 Collagenase (Santyl) 1 applic BID TOP Last administered on 02/17/19at 20:32; Admin Dose 1 APPLIC; Start 02/16/19 at 21:00 Sodium Phosphate (Neutra-Phos) 250 mg BID GTB Last administered on 02/17/19at 20:32; Admin Dose 250 MG; Start 02/17/19 at 09:00 Insulin Glargine (Lantus) 11 units DAILY@0800 SC Last administered on 02/17/19at 11:55; Admin Dose 11 UNITS; Start 02/17/19 at 11:30 Allergies: Coded Allergies: No Known Allergies (Verified Allergy, Mild, 02/14/19) Social History Alcohol Use: none Smoking Status: Unknown if ever smoked Drug Use: none Exam/Review of Systems Exam Vitals Vital Signs Date Temp Pulse Resp B/P (MAP) Pulse Ox O2 O2 Flow FiO2 Time Delivery Rate 02/18/19 75 19 154/59 98 Room Air 07:00 (90) 02/18/19 97.6 04:00 02/17/19 3.0 17:37 02/17/19 30 14:20 Intake and Output 02/17/19 02/17/19 02/18/19 1414:59 22:59 06:59 IntakeIntake Total 1260.588 ml 920 ml 1452.5 ml OutputOutput Total 200 ml 405 ml 595 ml BalanceBalance 1060.588 ml 515 ml 857.5 ml Results Result Diagram: 02/18/19 0453 02/18/19 0453 Results 24hrs Laboratory Tests Test 02/17/19 09:01 02/17/19 11:15 02/17/19 11:20 02/17/19 11:51 Bedside Glucose 282 H 221 H Urine Osmolality 553 Blood Gas Blood arterial Specimen Source Arterial Blood 02/17/2019 11:10:3 Date Drawn 1 AM Arterial Blood pH 7.492 H (Temp corrected) Arterial Blood 27.9 L pCO2 (Temp correct) Arterial Blood 144.7 H pO2 (Temp corrected) Arterial Blood 20.9 L HCO3 Arterial Blood -1.8 Base Excess Arterial Blood 98.9 Oxygen Saturation Jim Test ACCEPTAB Arterial Blood Left Radial Gas Puncture Site Arterial 0.3 Blood Carboxyhemo globin Arterial Blood 0.3 Methemoglobin Blood Gas A-a O2 36.4 H Differential Oxyhemoglobin 98.3 Percent Blood Gas 37.0 Temperature Blood Gas Actual 17 Respiration Rate Blood Gas VENT - CPAP Modality FiO2 30.0 Blood Gas Low 5.0 PEEP Setting Blood Gas 10 Pressure Support Blood Gas TM Notified Whom Blood Gas 02/17/2019 11:35:1 Notified Time 3 AM Test 02/17/19 13:37 02/17/19 17:21 02/17/19 20:34 02/18/19 01:29 Bedside Glucose 216 146 157 230 H Test 02/18/19 04:39 02/18/19 04:53 Bedside Glucose 176 White Blood Count 11.3 H Red Blood Count 2.81 L Hemoglobin 8.2 L Hematocrit 26.3 L Mean Corpuscular 93.6 Volume Mean Corpuscular 29.2 Hemoglobin Mean Corpuscular 31.2 L Hemoglobin Concen t Red Cell 14.8 H Distribution Width Platelet Count 291 Mean Platelet 10.8 H Volume Immature 0.500 H Granulocytes % Neutrophils % 80.2 H Lymphocytes % 12.7 L Monocytes % 4.4 Eosinophils % 1.8 Basophils % 0.4 Nucleated Red 0.0 Blood Cells % Immature 0.060 H Granulocytes # Neutrophils # 9.0 H Lymphocytes # 1.4 Monocytes # 0.5 Eosinophils # 0.2 Basophils # 0.0 Nucleated Red 0.0 Blood Cells # Sodium Level 147 H Potassium Level 3.0 L Chloride Level 119 H Carbon Dioxide 24 Level Anion Gap 4 L Blood Urea 19 # Nitrogen Creatinine 0.57 Est Glomerular Filtrat Rate mL/min Glucose Level 176 Calcium Level 8.2 L Phosphorus Level 2.2 L Magnesium Level 1.9 Medications Medication Current Medications IV Flush (NS 3 ml) 3 ml PER PROTOCOL IV ; Start 02/14/19 at 20:00 Ondansetron HCl (Zofran Inj) 4 mg Q6H PRN IV NAUSEA/VOMITING; Start 02/14/19 at 20:00 Morphine Sulfate (morphine) 2 mg Q4H PRN IV .SEVERE PAIN 7-10; Start 02/14/19 at 20:00 Docusate Sodium (Colace) 100 mg Q12H PRN PO .CONSTIPATION; Start 02/14/19 at 20:00 Diagnostic Test (Pha) (Accu-Chek) 1 ea 02 XX Last administered on 02/15/19at 01:52; Admin Dose 1 EA; Start 02/15/19 at 02:00 Insulin Aspart (Novolog Insulin Pen) NOVOLOG *MILD* ALGORI... Q4 SC Last administered on 02/18/19at 04:40; Admin Dose 1 UNIT; Start 02/14/19 at 21:00 Piperacillin Sod/ Tazobactam Sod 100 ml @ 200 mls/hr Q8H IVPB Last administered on 02/18/19at 01:45; Admin Dose 200 MLS/HR; Start 02/15/19 at 02:00 Miscellaneous Information 1 ea NOTE XX ; Start 02/14/19 at 20:00 Glucose (Glutose) 15 gm Q15M PRN PO DECREASED GLUCOSE; Start 02/14/19 at 20:00 Glucose (Glutose) 22.5 gm Q15M PRN PO DECREASED GLUCOSE; Start 02/14/19 at 20:00 Dextrose (D50w Syringe) 25 ml Q15M PRN IV DECREASED GLUCOSE; Start 02/14/19 at 20:00 Dextrose (D50w Syringe) 50 ml Q15M PRN IV DECREASED GLUCOSE; Start 02/14/19 at 20:00 Glucagon (Glucagen) 1 mg Q15M PRN IM DECREASED GLUCOSE; Start 02/14/19 at 20:00 Glucose (Glutose) 15 gm Q15M PRN BUCCAL DECREASED GLUCOSE; Start 02/14/19 at 20:00 Famotidine (Pepcid Iv) 20 mg DAILY IV Last administered on 02/17/19 08:55; Admin Dose 20 MG; Start 02/15/19 at 09:00 Propofol 100 ml @ 1.647 mls/ hr Q12H IV Last administered on 02/16/19 21:17; Admin Dose 3.294 MLS/HR; Start 02/15/19 at 01:00 Miscellaneous Information (Pending Santyl Order For Wound Care) This patient slaughter... PRN PRN XX WOUND CARE; Start 02/15/19 at 11:30 Collagenase (Santyl) 1 applic BID TOP Last administered on 02/17/19 20:32; Admin Dose 1 APPLIC; Start 02/16/19 at 21:00 Sodium Phosphate (Neutra-Phos) 250 mg BID GTB Last administered on 02/17/19 20:32; Admin Dose 250 MG; Start 02/17/19 at 09:00 Insulin Glargine (Lantus) 11 units DAILY@0800 SC Last administered on 02/17/19 11:55; Admin Dose 11 UNITS; Start 02/17/19 at 11:30 KP THAKKAR Feb 18, 2019 07:50
--- NOTE | 2019-02-18 08:03 | CONS ---
Assessment/Plan Assessment/Plan Assessment/Plan (Daily) There is been no change in patient's overall condition within last 24 hours. It is my understanding from patient's critical care nurse that social work service has reached out to family members and they have decided to withhold a family conference at this time. Patient still remains in the intensive care unit, history of urosepsis, dementia, acute kidney injury, type 2 diabetes with overall prognosis poor. Will remain available for family conference. Consultation Date/Type/Reason Admit Date/Time Feb 14, 2019 at 19:18 Date/Time of Note DATE: 02/18/19 TIME: 08:03 Past Medical History Medical History: other (As per history of present illness otherwise incomplete database) Home Meds Reported Medications Acetaminophen* (Acetaminophen*) 325 Mg Tablet, 650 MG GTB Q6H PRN for MILD PAIN LEVEL 1-3, #30 TAB AND FEVER>101F 02/14/19 Clonidine Hcl* (Clonidine Hcl*) 0.1 Mg Tab, 0.1 MG GTB Q6, TAB 02/14/19 Docusate Sodium* (Docusate Sodium* Liq) 50 Mg/5 Ml Liquid, 10 ML GTB DAILY, ML 02/14/19 Omeprazole* (Omeprazole*) 20 Mg Capsule.dr, 20 MG GTB DAILY, #30 CAP 02/14/19 Ipratropium-Albuterol (Ipratropium-Albuterol) 0.5-3 Mg/3 Ml Ampul.neb, 3 ML INHALATION Q4H PRN for NEEDED, #30 VIAL 02/14/19 Clonidine Patch (CLONIDINE PATCH) Unknown Strength Patch, 1 PATCH TD Q SAT, #4 PATCH.WK 0.1MG/24HR 02/14/19 Lisinopril* (Lisinopril*) 10 Mg Tablet, 10 MG GTB DAILY, #30 TAB 02/14/19 Ascorbic Acid (Vitamin C) 500 Mg Tab, 500 MG GTB DAILY, TAB 02/14/19 Cholecalciferol* (Vitamin D3*) 1,000 Unit Tablet, 1000 UNIT GTB DAILY, TAB 02/14/19 Amlodipine Besylate* (Norvasc*) 5 Mg Tablet, 5 MG GTB BID, TAB HOLD FOR SBP<110 11/06/18 Memantine* (Namenda*) 10 Mg Tablet, 10 MG GTB BID, #60 TAB 11/06/18 Glucagon,Human Recombinant (Glucagon Emergency Kit) 1 Mg Kit, 1 MG IJ NEEDED PRN for FOR GLUCOSE<60MG/DL, KIT 11/06/18 Insulin Detemir (Levemir Flextouch) 100 Unit/1 Ml Insuln.pen, 15 UNIT SQ BID, EA 11/06/18 Gabapentin* (Gabapentin*) 300 Mg Capsule, 300 MG GTB QHS, #60 CAP 11/06/18 Atorvastatin Calcium (Atorvastatin Calcium) 10 Mg Tablet, 10 MG GTB QHS, #30 TAB 11/06/18 Donepezil* (Aricept*) 10 Mg Tablet, 10 MG GTB QPM, TAB 11/06/18 Discontinued Reported Medications Acetaminophen* (Acetaminophen*) 500 MG Extra Strength Tablet, 500 MG PO Q6H PRN for FOR FEVER>101, TAB 11/06/18 Magnesium Hydroxide/Al Hydrox (DAREN-MOX ANTACID SUSPENSION) 355 Ml Oral.susp, 30 ML PO Q6H 11/06/18 Megestrol Acetate* (Megace ES*) Unknown Strength Oral.susp, 10 ML PO BID, ML MEGACE 40MG/ML, STOP DATE 11/29/18 11/06/18 Metformin Hcl* (Metformin Hcl*) 500 Mg Tablet, 250 MG PO WITH BREAKFAST DINNE, #60 TAB 11/06/18 Pantoprazole* (Pantoprazole*) 40 Mg Tablet.dr, 40 MG PO AC BREAKFAST, TAB 11/06/18 Hydralazine Hcl* (Hydralazine Hcl*) 25 Mg Tab, 25 MG PO Q8 PRN for FOR SBP>150, #90 TAB 11/06/18 Ondansetron Hcl* (Zofran*) 4 Mg Tab, 4 MG PO Q4H PRN for NAUSEA AND OR VOMITING, TAB 11/06/18 Dextran 70/Hypromellose/Pf (ARTIFICIAL TEARS DROPS) 1 Each Droperette, 1 EACH OP Q12H 11/06/18 Metoprolol Tartrate* (Lopressor*) 25 Mg Tab, 25 MG PO BID, #60 TAB HOLD IF SBP<120 OR HR<60 11/06/18 Cholecalciferol (Vitamin D3) 5,000 Unit Tablet, 5000 UNIT PO DAILY, TAB 11/06/18 Multivitamin with Minerals (Multivitamins with Minerals) 1 Each Tablet, 1 EACH PO DAILY, TAB 11/06/18 Folic Acid* (Folic Acid*) 1 Mg Tablet, 1 MG PO DAILY, TAB 11/06/18 Ferrous Sulfate* (Ferrous Sulfate*) 325 Mg Tabec, 325 MG PO DAILY, TAB 11/06/18 Cranberry Fruit Concentrate (CRANBERRY) 450 Mg Capsule, 405 MG PO DAILY, CAP 11/06/18 Docusate Sodium* (Colace*) 100 Mg Capsule, 100 MG PO DAILY, #30 CAP 11/06/18 Aspirin* (Aspirin* EC) 81 Mg Tablet.dr, 81 MG PO DAILY, TAB 11/06/18 Medications Current Medications IV Flush (NS 3 ml) 3 ml PER PROTOCOL IV ; Start 02/14/19 at 20:00 Ondansetron HCl (Zofran Inj) 4 mg Q6H PRN IV NAUSEA/VOMITING; Start 02/14/19 at 20:00 Morphine Sulfate (morphine) 2 mg Q4H PRN IV .SEVERE PAIN 7-10; Start 02/14/19 at 20:00 Docusate Sodium (Colace) 100 mg Q12H PRN PO .CONSTIPATION; Start 02/14/19 at 20:00 Diagnostic Test (Pha) (Accu-Chek) 1 ea 02 XX Last administered on 02/15/19at 01:52; Admin Dose 1 EA; Start 02/15/19 at 02:00 Insulin Aspart (Novolog Insulin Pen) NOVOLOG *MILD* ALGORI... Q4 SC Last administered on 02/18/19at 04:40; Admin Dose 1 UNIT; Start 02/14/19 at 21:00 Piperacillin Sod/ Tazobactam Sod 100 ml @ 200 mls/hr Q8H IVPB Last administered on 02/18/19at 01:45; Admin Dose 200 MLS/HR; Start 02/15/19 at 02:00 Miscellaneous Information 1 ea NOTE XX ; Start 02/14/19 at 20:00 Glucose (Glutose) 15 gm Q15M PRN PO DECREASED GLUCOSE; Start 02/14/19 at 20:00 Glucose (Glutose) 22.5 gm Q15M PRN PO DECREASED GLUCOSE; Start 02/14/19 at 20:00 Dextrose (D50w Syringe) 25 ml Q15M PRN IV DECREASED GLUCOSE; Start 02/14/19 at 20:00 Dextrose (D50w Syringe) 50 ml Q15M PRN IV DECREASED GLUCOSE; Start 02/14/19 at 20:00 Glucagon (Glucagen) 1 mg Q15M PRN IM DECREASED GLUCOSE; Start 02/14/19 at 20:00 Glucose (Glutose) 15 gm Q15M PRN BUCCAL DECREASED GLUCOSE; Start 02/14/19 at 20:00 Famotidine (Pepcid Iv) 20 mg DAILY IV Last administered on 02/17/19at 08:55; Admin Dose 20 MG; Start 02/15/19 at 09:00 Propofol 100 ml @ 1.647 mls/ hr Q12H IV Last administered on 02/16/19at 21:17; Admin Dose 3.294 MLS/HR; Start 02/15/19 at 01:00 Miscellaneous Information (Pending Santyl Order For Wound Care) This patient slaughter... PRN PRN XX WOUND CARE; Start 02/15/19 at 11:30 Collagenase (Santyl) 1 applic BID TOP Last administered on 02/17/19at 20:32; Admin Dose 1 APPLIC; Start 02/16/19 at 21:00 Sodium Phosphate (Neutra-Phos) 250 mg BID GTB Last administered on 02/17/19at 20:32; Admin Dose 250 MG; Start 02/17/19 at 09:00 Insulin Glargine (Lantus) 11 units DAILY@0800 SC Last administered on 02/17/19at 11:55; Admin Dose 11 UNITS; Start 02/17/19 at 11:30 Allergies: Coded Allergies: No Known Allergies (Verified Allergy, Mild, 02/14/19) Social History Alcohol Use: none Smoking Status: Unknown if ever smoked Drug Use: none Exam/Review of Systems Exam Vitals Vital Signs Date Temp Pulse Resp B/P (MAP) Pulse Ox O2 O2 Flow FiO2 Time Delivery Rate 02/18/19 75 19 154/59 98 Room Air 07:00 (90) 02/18/19 97.6 04:00 02/17/19 3.0 17:37 02/17/19 30 14:20 Intake and Output 02/17/19 02/17/19 02/18/19 1515:00 23:00 07:00 IntakeIntake Total 1277.294 ml 950 ml 1402.5 ml OutputOutput Total 180 ml 445 ml 655 ml BalanceBalance 1097.294 ml 505 ml 747.5 ml Results Result Diagram: 02/18/19 0453 02/18/19 0453 Results 24hrs Laboratory Tests Test 02/17/19 09:01 02/17/19 11:15 02/17/19 11:20 02/17/19 11:51 Bedside Glucose 282 H 221 H Urine Osmolality 553 Blood Gas Blood arterial Specimen Source Arterial Blood 02/17/2019 11:10:3 Date Drawn 1 AM Arterial Blood pH 7.492 H (Temp corrected) Arterial Blood 27.9 L pCO2 (Temp correct) Arterial Blood 144.7 H pO2 (Temp corrected) Arterial Blood 20.9 L HCO3 Arterial Blood -1.8 Base Excess Arterial Blood 98.9 Oxygen Saturation Jim Test ACCEPTAB Arterial Blood Left Radial Gas Puncture Site Arterial 0.3 Blood Carboxyhemo globin Arterial Blood 0.3 Methemoglobin Blood Gas A-a O2 36.4 H Differential Oxyhemoglobin 98.3 Percent Blood Gas 37.0 Temperature Blood Gas Actual 17 Respiration Rate Blood Gas VENT - CPAP Modality FiO2 30.0 Blood Gas Low 5.0 PEEP Setting Blood Gas 10 Pressure Support Blood Gas TM Notified Whom Blood Gas 02/17/2019 11:35:1 Notified Time 3 AM Test 02/17/19 13:37 02/17/19 17:21 02/17/19 20:34 02/18/19 01:29 Bedside Glucose 216 146 157 230 H Test 02/18/19 04:39 02/18/19 04:53 Bedside Glucose 176 White Blood Count 11.3 H Red Blood Count 2.81 L Hemoglobin 8.2 L Hematocrit 26.3 L Mean Corpuscular 93.6 Volume Mean Corpuscular 29.2 Hemoglobin Mean Corpuscular 31.2 L Hemoglobin Concen t Red Cell 14.8 H Distribution Width Platelet Count 291 Mean Platelet 10.8 H Volume Immature 0.500 H Granulocytes % Neutrophils % 80.2 H Lymphocytes % 12.7 L Monocytes % 4.4 Eosinophils % 1.8 Basophils % 0.4 Nucleated Red 0.0 Blood Cells % Immature 0.060 H Granulocytes # Neutrophils # 9.0 H Lymphocytes # 1.4 Monocytes # 0.5 Eosinophils # 0.2 Basophils # 0.0 Nucleated Red 0.0 Blood Cells # Sodium Level 147 H Potassium Level 3.0 L Chloride Level 119 H Carbon Dioxide 24 Level Anion Gap 4 L Blood Urea 19 # Nitrogen Creatinine 0.57 Est Glomerular Filtrat Rate mL/min Glucose Level 176 Calcium Level 8.2 L Phosphorus Level 2.2 L Magnesium Level 1.9 Medications Medication Current Medications IV Flush (NS 3 ml) 3 ml PER PROTOCOL IV ; Start 02/14/19 at 20:00 Ondansetron HCl (Zofran Inj) 4 mg Q6H PRN IV NAUSEA/VOMITING; Start 02/14/19 at 20:00 Morphine Sulfate (morphine) 2 mg Q4H PRN IV .SEVERE PAIN 7-10; Start 02/14/19 at 20:00 Docusate Sodium (Colace) 100 mg Q12H PRN PO .CONSTIPATION; Start 02/14/19 at 20:00 Diagnostic Test (Pha) (Accu-Chek) 1 ea 02 XX Last administered on 02/15/19at 01:52; Admin Dose 1 EA; Start 02/15/19 at 02:00 Insulin Aspart (Novolog Insulin Pen) NOVOLOG *MILD* ALGORI... Q4 SC Last administered on 02/18/19at 04:40; Admin Dose 1 UNIT; Start 02/14/19 at 21:00 Piperacillin Sod/ Tazobactam Sod 100 ml @ 200 mls/hr Q8H IVPB Last administered on 02/18/19at 01:45; Admin Dose 200 MLS/HR; Start 02/15/19 at 02:00 Miscellaneous Information 1 ea NOTE XX ; Start 02/14/19 at 20:00 Glucose (Glutose) 15 gm Q15M PRN PO DECREASED GLUCOSE; Start 02/14/19 at 20:00 Glucose (Glutose) 22.5 gm Q15M PRN PO DECREASED GLUCOSE; Start 02/14/19 at 20:00 Dextrose (D50w Syringe) 25 ml Q15M PRN IV DECREASED GLUCOSE; Start 02/14/19 at 20:00 Dextrose (D50w Syringe) 50 ml Q15M PRN IV DECREASED GLUCOSE; Start 02/14/19 at 20:00 Glucagon (Glucagen) 1 mg Q15M PRN IM DECREASED GLUCOSE; Start 02/14/19 at 20:00 Glucose (Glutose) 15 gm Q15M PRN BUCCAL DECREASED GLUCOSE; Start 02/14/19 at 20:00 Famotidine (Pepcid Iv) 20 mg DAILY IV Last administered on 02/17/19 08:55; Admin Dose 20 MG; Start 02/15/19 at 09:00 Propofol 100 ml @ 1.647 mls/ hr Q12H IV Last administered on 02/16/19 21:17; Admin Dose 3.294 MLS/HR; Start 02/15/19 at 01:00 Miscellaneous Information (Pending Santyl Order For Wound Care) This patient slaughter... PRN PRN XX WOUND CARE; Start 02/15/19 at 11:30 Collagenase (Santyl) 1 applic BID TOP Last administered on 02/17/19 20:32; Admin Dose 1 APPLIC; Start 02/16/19 at 21:00 Sodium Phosphate (Neutra-Phos) 250 mg BID GTB Last administered on 02/17/19 20:32; Admin Dose 250 MG; Start 02/17/19 at 09:00 Insulin Glargine (Lantus) 11 units DAILY@0800 SC Last administered on 02/17/19 11:55; Admin Dose 11 UNITS; Start 02/17/19 at 11:30 KP THAKKAR Feb 18, 2019 08:03
[2019-02-18] MEDS: FAMOTIDINE 20 MG INJ IV SCH (08:20)
[2019-02-18] MEDS: NEUTRA-PHOS 250 MG PACKET GTB SCH ×2 (08:20→21:24)
[2019-02-18] MEDS: BALSAM PERU/CASTOR OIL 60 GM TUBE TOP SCH ×2 (08:20→21:25)
[2019-02-18] MEDS: COLLAGENASE 5 GM (UD JAR) TOP SCH ×2 (08:20→21:24)
[2019-02-18] MEDS: INSULIN GLARGINE [LANTus] (100 UNITS/ML) SYG SC SCH (08:31)
--- NOTE | 2019-02-18 08:33 | CONS ---
Assessment/Plan Assessment/Plan Assessment/Plan (Daily) Assessment and recommendations; 1. Patient admitted with respiratory failure due to sepsis from UTI, enterococcus cultured from urine. Patient currently on appropriate antimicrobial regimen. 2. Status post extubation yesterday with stable clinical status on room air. 3. Advanced dementia. 4. Unstageable sacrococcygeal decubitus ulcer. 5. Anemia. 6. Improving hypernatremia. 7. Diabetes. Continue current supportive care. Transfer to medical floor. Consultation Date/Type/Reason Admit Date/Time Feb 14, 2019 at 19:18 Initial Consult Date Type of Consult Pulmonary/critical care Patient condition remains critical. Still remains ventilator dependent. Patient was given a CPAP trial yesterday, she was not extubated because of persistently poor mental status. Patient however has remained hemodynamically stable. General exam; elderly woman, orally intubated, awake but noncommunicative. Currently in no distress. Date/Time of Note DATE: 02/18/19 TIME: 08:31 24 HR Interval Summary Free Text/Dictation Patient's condition is stable. Was extubated yesterday afternoon. Patient has remained hemodynamically stable and also exhibiting stable pulmonary status on room air. General exam; elderly woman, wakes up on name calling but does not follow any commands. Currently no distress. Exam/Review of Systems Exam Vitals Vital Signs Date Temp Pulse Resp B/P (MAP) Pulse Ox O2 O2 Flow FiO2 Time Delivery Rate 02/18/19 75 19 154/59 98 Room Air 07:00 (90) 02/18/19 97.6 04:00 02/17/19 3.0 17:37 02/17/19 30 14:20 Intake and Output 02/17/19 02/17/19 02/18/19 1515:00 23:00 07:00 IntakeIntake Total 1277.294 ml 950 ml 1402.5 ml OutputOutput Total 180 ml 445 ml 655 ml BalanceBalance 1097.294 ml 505 ml 747.5 ml Exam H EENT exam; supple neck, no JVD. No lymphadenopathy. Midline trachea. No thyromegaly. Pupils are small bilaterally. Patient is edentulous. No neck masses. Chest exam; clear to auscultation. S1-S2 audible, no murmurs. Regular rhythm. Abdomen exam; soft, no organomegaly. Bowel sounds audible. G-tube in place. Abdomen is nondistended. Extremity exam; no peripheral edema. Back exam; dressing applied over sacrum. VAMP STRAP [employer]ONER exam; patient is awake opens eyes on name calling. Results Result Diagram: 02/18/19 0453 02/18/19 0453 Results 24hrs Laboratory Tests Test 02/17/19 09:01 02/17/19 11:15 02/17/19 11:20 02/17/19 11:51 Bedside Glucose 282 H 221 H Urine Osmolality 553 Blood Gas Blood arterial Specimen Source Arterial Blood 02/17/2019 11:10:3 Date Drawn 1 AM Arterial Blood pH 7.492 H (Temp corrected) Arterial Blood 27.9 L pCO2 (Temp correct) Arterial Blood 144.7 H pO2 (Temp corrected) Arterial Blood 20.9 L HCO3 Arterial Blood -1.8 Base Excess Arterial Blood 98.9 Oxygen Saturation Jim Test ACCEPTAB Arterial Blood Left Radial Gas Puncture Site Arterial 0.3 Blood Carboxyhemo globin Arterial Blood 0.3 Methemoglobin Blood Gas A-a O2 36.4 H Differential Oxyhemoglobin 98.3 Percent Blood Gas 37.0 Temperature Blood Gas Actual 17 Respiration Rate Blood Gas VENT - CPAP Modality FiO2 30.0 Blood Gas Low 5.0 PEEP Setting Blood Gas 10 Pressure Support Blood Gas TM Notified Whom Blood Gas 02/17/2019 11:35:1 Notified Time 3 AM Test 02/17/19 13:37 02/17/19 17:21 02/17/19 20:34 02/18/19 01:29 Bedside Glucose 216 146 157 230 H Test 02/18/19 04:39 02/18/19 04:53 Bedside Glucose 176 White Blood Count 11.3 H Red Blood Count 2.81 L Hemoglobin 8.2 L Hematocrit 26.3 L Mean Corpuscular 93.6 Volume Mean Corpuscular 29.2 Hemoglobin Mean Corpuscular 31.2 L Hemoglobin Concen t Red Cell 14.8 H Distribution Width Platelet Count 291 Mean Platelet 10.8 H Volume Immature 0.500 H Granulocytes % Neutrophils % 80.2 H Lymphocytes % 12.7 L Monocytes % 4.4 Eosinophils % 1.8 Basophils % 0.4 Nucleated Red 0.0 Blood Cells % Immature 0.060 H Granulocytes # Neutrophils # 9.0 H Lymphocytes # 1.4 Monocytes # 0.5 Eosinophils # 0.2 Basophils # 0.0 Nucleated Red 0.0 Blood Cells # Sodium Level 147 H Potassium Level 3.0 L Chloride Level 119 H Carbon Dioxide 24 Level Anion Gap 4 L Blood Urea 19 # Nitrogen Creatinine 0.57 Est Glomerular Filtrat Rate mL/min Glucose Level 176 Calcium Level 8.2 L Phosphorus Level 2.2 L Magnesium Level 1.9 Medications Medication Current Medications IV Flush (NS 3 ml) 3 ml PER PROTOCOL IV ; Start 02/14/19 at 20:00 Ondansetron HCl (Zofran Inj) 4 mg Q6H PRN IV NAUSEA/VOMITING; Start 02/14/19 at 20:00 Morphine Sulfate (morphine) 2 mg Q4H PRN IV .SEVERE PAIN 7-10; Start 02/14/19 at 20:00 Docusate Sodium (Colace) 100 mg Q12H PRN PO .CONSTIPATION; Start 02/14/19 at 20:00 Diagnostic Test (Pha) (Accu-Chek) 1 ea 02 XX Last administered on 02/15/19at 01:52; Admin Dose 1 EA; Start 02/15/19 at 02:00 Insulin Aspart (Novolog Insulin Pen) NOVOLOG *MILD* ALGORI... Q4 SC Last administered on 02/18/19at 04:40; Admin Dose 1 UNIT; Start 02/14/19 at 21:00 Piperacillin Sod/ Tazobactam Sod 100 ml @ 200 mls/hr Q8H IVPB Last administered on 02/18/19at 01:45; Admin Dose 200 MLS/HR; Start 02/15/19 at 02:00 Miscellaneous Information 1 ea NOTE XX ; Start 02/14/19 at 20:00 Glucose (Glutose) 15 gm Q15M PRN PO DECREASED GLUCOSE; Start 02/14/19 at 20:00 Glucose (Glutose) 22.5 gm Q15M PRN PO DECREASED GLUCOSE; Start 02/14/19 at 20:00 Dextrose (D50w Syringe) 25 ml Q15M PRN IV DECREASED GLUCOSE; Start 02/14/19 at 20:00 Dextrose (D50w Syringe) 50 ml Q15M PRN IV DECREASED GLUCOSE; Start 02/14/19 at 20:00 Glucagon (Glucagen) 1 mg Q15M PRN IM DECREASED GLUCOSE; Start 02/14/19 at 20:00 Glucose (Glutose) 15 gm Q15M PRN BUCCAL DECREASED GLUCOSE; Start 02/14/19 at 20:00 Famotidine (Pepcid Iv) 20 mg DAILY IV Last administered on 02/18/19 08:20; Admin Dose 20 MG; Start 02/15/19 at 09:00 Propofol 100 ml @ 1.647 mls/ hr Q12H IV Last administered on 02/16/19 21:17; Admin Dose 3.294 MLS/HR; Start 02/15/19 at 01:00 Miscellaneous Information (Pending Santyl Order For Wound Care) This patient slaughter... PRN PRN XX WOUND CARE; Start 02/15/19 at 11:30 Collagenase (Santyl) 1 applic BID TOP Last administered on 02/18/19 08:20; Admin Dose 1 APPLIC; Start 02/16/19 at 21:00 Sodium Phosphate (Neutra-Phos) 250 mg BID GTB Last administered on 02/18/19 08:20; Admin Dose 250 MG; Start 02/17/19 at 09:00 Insulin Glargine (Lantus) 11 units DAILY@0800 SC Last administered on 02/17/19at 11:55; Admin Dose 11 UNITS; Start 02/17/19 at 11:30 MIGEL VASQUEZ Feb 18, 2019 08:33
--- NOTE | 2019-02-18 12:10 | CONS ---
Assessment/Plan Assessment/Plan Hospital Course (Demo Recall) No acute changes overnight. Patient was extubated yesterday she is comfortable on room air no fevers overnight WBC 11.3 platelets 291 neutrophils 80.2 BUN 19 creatinine 0.57 Antimicrobials: Zosyn day #4 Indwelling: Spann, right IJ triple-lumen catheter Physical examination: Well-developed fragile elderly woman who is in no distress. Head atraumatic normocephalic neck is supple chest rise symmetrical breath sounds diminished to bases. Heart: S1-S2. Abdomen soft bowel sounds present. Assessment: 1. Resolving sepsis 2. Enterococcal UTI 3. Dementia 4. Pneumonia, resolving 5. Hypertension 6. Diabetes Plan: Patient is stable post extubation, she is completing antibiotic, continue aspiration precautions, pending transfer to [facility] floor Consultation Date/Type/Reason Admit Date/Time Feb 14, 2019 at 19:18 Initial Consult Date Type of Consult id Date/Time of Note DATE: 02/18/19 TIME: 12:09 Exam/Review of Systems Exam Vitals Vital Signs Date Temp Pulse Resp B/P (MAP) Pulse Ox O2 O2 Flow FiO2 Time Delivery Rate 02/18/19 72 20 141/64 97 Room Air 11:00 (89) 02/18/19 97.9 08:00 02/17/19 3.0 17:37 02/17/19 30 14:20 Intake and Output 02/17/19 02/17/19 02/18/19 1515:00 23:00 07:00 IntakeIntake Total 1277.294 ml 950 ml 1402.5 ml OutputOutput Total 180 ml 445 ml 655 ml BalanceBalance 1097.294 ml 505 ml 747.5 ml Results Result Diagram: 02/18/19 0453 02/18/19 0453 Results 24hrs Laboratory Tests Test 02/17/19 13:37 02/17/19 17:21 02/17/19 20:34 02/18/19 01:29 Bedside Glucose 216 146 157 230 H Test 02/18/19 04:39 02/18/19 04:53 02/18/19 08:29 Bedside Glucose 176 223 H White Blood Count 11.3 H Red Blood Count 2.81 L Hemoglobin 8.2 L Hematocrit 26.3 L Mean Corpuscular 93.6 Volume Mean Corpuscular 29.2 Hemoglobin Mean Corpuscular 31.2 L Hemoglobin Concent Red Cell 14.8 H Distribution Width Platelet Count 291 Mean Platelet Volume 10.8 H Immature 0.500 H Granulocytes % Neutrophils % 80.2 H Lymphocytes % 12.7 L Monocytes % 4.4 Eosinophils % 1.8 Basophils % 0.4 Nucleated Red Blood 0.0 Cells % Immature 0.060 H Granulocytes # Neutrophils # 9.0 H Lymphocytes # 1.4 Monocytes # 0.5 Eosinophils # 0.2 Basophils # 0.0 Nucleated Red Blood 0.0 Cells # Sodium Level 147 H Potassium Level 3.0 L Chloride Level 119 H Carbon Dioxide Level 24 Anion Gap 4 L Blood Urea Nitrogen 19 # Creatinine 0.57 Est Glomerular Filtrat Rate mL/min Glucose Level 176 Calcium Level 8.2 L Phosphorus Level 2.2 L Magnesium Level 1.9 Medications Medication Current Medications IV Flush (NS 3 ml) 3 ml PER PROTOCOL IV ; Start 02/14/19 at 20:00 Ondansetron HCl (Zofran Inj) 4 mg Q6H PRN IV NAUSEA/VOMITING; Start 02/14/19 at 20:00 Morphine Sulfate (morphine) 2 mg Q4H PRN IV .SEVERE PAIN 7-10; Start 02/14/19 at 20:00 Docusate Sodium (Colace) 100 mg Q12H PRN PO .CONSTIPATION; Start 02/14/19 at 20:00 Diagnostic Test (Pha) (Accu-Chek) 1 ea 02 XX Last administered on 02/15/19at 01:52; Admin Dose 1 EA; Start 02/15/19 at 02:00 Insulin Aspart (Novolog Insulin Pen) NOVOLOG *MILD* ALGORI... Q4 SC Last administered on 02/18/19at 08:31; Admin Dose 3 UNIT; Start 02/14/19 at 21:00 Piperacillin Sod/ Tazobactam Sod 100 ml @ 200 mls/hr Q8H IVPB Last administered on 02/18/19at 10:42; Admin Dose 200 MLS/HR; Start 02/15/19 at 02:00 Miscellaneous Information 1 ea NOTE XX ; Start 02/14/19 at 20:00 Glucose (Glutose) 15 gm Q15M PRN PO DECREASED GLUCOSE; Start 02/14/19 at 20:00 Glucose (Glutose) 22.5 gm Q15M PRN PO DECREASED GLUCOSE; Start 02/14/19 at 20:00 Dextrose (D50w Syringe) 25 ml Q15M PRN IV DECREASED GLUCOSE; Start 02/14/19 at 20:00 Dextrose (D50w Syringe) 50 ml Q15M PRN IV DECREASED GLUCOSE; Start 02/14/19 at 20:00 Glucagon (Glucagen) 1 mg Q15M PRN IM DECREASED GLUCOSE; Start 02/14/19 at 20:00 Glucose (Glutose) 15 gm Q15M PRN BUCCAL DECREASED GLUCOSE; Start 02/14/19 at 20:00 Propofol 100 ml @ 1.647 mls/ hr Q12H IV Last administered on 02/16/19at 21:17; Admin Dose 3.294 MLS/HR; Start 02/15/19 at 01:00 Miscellaneous Information (Pending Santyl Order For Wound Care) This patient slaughter... PRN PRN XX WOUND CARE; Start 02/15/19 at 11:30 Collagenase (Santyl) 1 applic BID TOP Last administered on 02/18/19at 08:20; Admin Dose 1 APPLIC; Start 02/16/19 at 21:00 Sodium Phosphate (Neutra-Phos) 250 mg BID GTB Last administered on 02/18/19at 08:20; Admin Dose 250 MG; Start 02/17/19 at 09:00 Insulin Glargine (Lantus) 11 units DAILY@0800 SC Last administered on 02/18/19at 08:31; Admin Dose 11 UNITS; Start 02/17/19 at 11:30 Famotidine (Pepcid) 20 mg DAILY PEG ; Start 02/19/19 at 09:00 DAILY WOOD NP Feb 18, 2019 12:10
--- NOTE | 2019-02-18 14:42 | PN ---
Date/Time of Note Date/Time of Note DATE: 02/18/19 TIME: 14:41 Assessment/Plan VTE Prophylaxis Risk score (from Ns)>0 risk: 11 [place] [facility] [place] Pharmacological prophylaxis: heparin Lines/Catheters IV Catheter Type (from [facility] Central Line Central line still needed: Yes Urinary Cath still in place: Yes Reason Cath still needed: urinary retention Assessment/Plan Hospital Course Exubated Comfortable RRR CTAB SOft nt nd 1. Septic shock secondary to UTI Continue broad-spectrum antibiotics Pressors as needed ID consultation obtained Follow-up on cultures 2. Acute respiratory failure secondary to acute encephalopathy - s/p extubation 3. Acute on chronic encephalopathy secondary to severe sepsis on dementia Broad-spectrum antibiotics CT head with no acute findings Patient resides in a retirement facility 4. Acute kidney injury likely secondary to severe sepsis and hemodynamics- improving Nephrology consultation appreciated IV fluids Monitor 5. Hypernatremia secondary to dehydration IV fluids Nephrology consultation appreciated 6. History of hypertension Hold home meds secondary to septic shock 7. Diabetes basal bolus insulin. Add metformin A1c at 8.7 Prophylaxis: SCDs DC planning: dc to SNF Result Diagram: 02/18/19 0453 02/18/19 0453 Results 24hrs Laboratory Tests Test 02/17/19 17:21 02/17/19 20:34 02/18/19 01:29 02/18/19 04:39 Bedside Glucose 146 157 230 H 176 Test 02/18/19 04:53 02/18/19 08:29 02/18/19 13:26 White Blood Count 11.3 H Red Blood Count 2.81 L Hemoglobin 8.2 L Hematocrit 26.3 L Mean Corpuscular 93.6 Volume Mean Corpuscular 29.2 Hemoglobin Mean Corpuscular 31.2 L Hemoglobin Concent Red Cell 14.8 H Distribution Width Platelet Count 291 Mean Platelet Volume 10.8 H Immature 0.500 H Granulocytes % Neutrophils % 80.2 H Lymphocytes % 12.7 L Monocytes % 4.4 Eosinophils % 1.8 Basophils % 0.4 Nucleated Red Blood 0.0 Cells % Immature 0.060 H Granulocytes # Neutrophils # 9.0 H Lymphocytes # 1.4 Monocytes # 0.5 Eosinophils # 0.2 Basophils # 0.0 Nucleated Red Blood 0.0 Cells # Sodium Level 147 H Potassium Level 3.0 L Chloride Level 119 H Carbon Dioxide Level 24 Anion Gap 4 L Blood Urea Nitrogen 19 # Creatinine 0.57 Est Glomerular Filtrat Rate mL/min Glucose Level 176 Calcium Level 8.2 L Phosphorus Level 2.2 L Magnesium Level 1.9 Bedside Glucose 223 H 233 H Subjective 24 Hr Interval Summary Free Text/Dictation Extubated Doing great on room air Dementia, non communicative Exam/Review of Systems Exam Vitals Vital Signs Date Temp Pulse Resp B/P (MAP) Pulse Ox O2 O2 Flow FiO2 Time Delivery Rate 02/18/19 74 22 142/56 100 Room Air 14:00 (84) 02/18/19 97.7 12:00 02/17/19 3.0 17:37 02/17/19 30 14:20 Intake and Output 02/17/19 02/17/19 02/18/19 1515:00 23:00 07:00 IntakeIntake Total 1277.294 ml 950 ml 1402.5 ml OutputOutput Total 180 ml 445 ml 655 ml BalanceBalance 1097.294 ml 505 ml 747.5 ml Results Results 24hrs Laboratory Tests Test 02/17/19 17:21 02/17/19 20:34 02/18/19 01:29 02/18/19 04:39 Bedside Glucose 146 157 230 H 176 Test 02/18/19 04:53 02/18/19 08:29 02/18/19 13:26 White Blood Count 11.3 H Red Blood Count 2.81 L Hemoglobin 8.2 L Hematocrit 26.3 L Mean Corpuscular 93.6 Volume Mean Corpuscular 29.2 Hemoglobin Mean Corpuscular 31.2 L Hemoglobin Concent Red Cell 14.8 H Distribution Width Platelet Count 291 Mean Platelet Volume 10.8 H Immature 0.500 H Granulocytes % Neutrophils % 80.2 H Lymphocytes % 12.7 L Monocytes % 4.4 Eosinophils % 1.8 Basophils % 0.4 Nucleated Red Blood 0.0 Cells % Immature 0.060 H Granulocytes # Neutrophils # 9.0 H Lymphocytes # 1.4 Monocytes # 0.5 Eosinophils # 0.2 Basophils # 0.0 Nucleated Red Blood 0.0 Cells # Sodium Level 147 H Potassium Level 3.0 L Chloride Level 119 H Carbon Dioxide Level 24 Anion Gap 4 L Blood Urea Nitrogen 19 # Creatinine 0.57 Est Glomerular Filtrat Rate mL/min Glucose Level 176 Calcium Level 8.2 L Phosphorus Level 2.2 L Magnesium Level 1.9 Bedside Glucose 223 H 233 H Medications Medication Current Medications IV Flush (NS 3 ml) 3 ml PER PROTOCOL IV ; Start 02/14/19 at 20:00 Ondansetron HCl (Zofran Inj) 4 mg Q6H PRN IV NAUSEA/VOMITING; Start 02/14/19 at 20:00 Morphine Sulfate (morphine) 2 mg Q4H PRN IV .SEVERE PAIN 7-10; Start 02/14/19 at 20:00 Docusate Sodium (Colace) 100 mg Q12H PRN PO .CONSTIPATION; Start 02/14/19 at 20:00 Diagnostic Test (Pha) (Accu-Chek) 1 ea 02 XX Last administered on 02/15/19at 01:52; Admin Dose 1 EA; Start 02/15/19 at 02:00 Insulin Aspart (Novolog Insulin Pen) NOVOLOG *MILD* ALGORI... Q4 SC Last administered on 02/18/19at 13:29; Admin Dose 3 UNIT; Start 02/14/19 at 21:00 Piperacillin Sod/ Tazobactam Sod 100 ml @ 200 mls/hr Q8H IVPB Last administered on 02/18/19at 10:42; Admin Dose 200 MLS/HR; Start 02/15/19 at 02:00 Miscellaneous Information 1 ea NOTE XX ; Start 02/14/19 at 20:00 Glucose (Glutose) 15 gm Q15M PRN PO DECREASED GLUCOSE; Start 02/14/19 at 20:00 Glucose (Glutose) 22.5 gm Q15M PRN PO DECREASED GLUCOSE; Start 02/14/19 at 20:00 Dextrose (D50w Syringe) 25 ml Q15M PRN IV DECREASED GLUCOSE; Start 02/14/19 at 20:00 Dextrose (D50w Syringe) 50 ml Q15M PRN IV DECREASED GLUCOSE; Start 02/14/19 at 20:00 Glucagon (Glucagen) 1 mg Q15M PRN IM DECREASED GLUCOSE; Start 02/14/19 at 20:00 Glucose (Glutose) 15 gm Q15M PRN BUCCAL DECREASED GLUCOSE; Start 02/14/19 at 20:00 Propofol 100 ml @ 1.647 mls/ hr Q12H IV Last administered on 02/16/19at 21:17; Admin Dose 3.294 MLS/HR; Start 02/15/19 at 01:00 Miscellaneous Information (Pending Santyl Order For Wound Care) This patient slaughter... PRN PRN XX WOUND CARE; Start 02/15/19 at 11:30 Collagenase (Santyl) 1 applic BID TOP Last administered on 02/18/19at 08:20; Admin Dose 1 APPLIC; Start 02/16/19 at 21:00 Sodium Phosphate (Neutra-Phos) 250 mg BID GTB Last administered on 02/18/19at 08:20; Admin Dose 250 MG; Start 02/17/19 at 09:00 Insulin Glargine (Lantus) 11 units DAILY@0800 SC Last administered on 02/18/19at 08:31; Admin Dose 11 UNITS; Start 02/17/19 at 11:30 Famotidine (Pepcid) 20 mg DAILY PEG ; Start 02/19/19 at 09:00 Ascorbic Acid (Vitamin C) 500 mg DAILY GTB ; Start 02/19/19 at 09:00 Zinc Sulfate (Zinc Sulfate) 220 mg DAILY GTB ; Start 02/19/19 at 09:00 JANINE BETHEA MD Feb 18, 2019 14:42
[2019-02-18] MEDS: metFORMIN 500 MG TAB PO SCH (19:00)
[2019-02-19] MEDS: INSULIN ASPART [NOVOLOG] 3 ML PEN SC SCH ×5 (00:52→17:28)
[2019-02-19] MEDS: ACCU-CHEK XX SCH (01:00)
[2019-02-19 01:57] VITALS: BP 166/76; PULSE 78; RESP 18
[2019-02-19] MEDS: PIPER-TAZO 3.375 GM IV (PMX) 100 ML IVPB SCH ×3 (02:26→17:26)
[2019-02-19 07:54] VITALS: BP 169/76; PULSE 77; RESP 16
[2019-02-19] MEDS ORDERED: INSULIN GLARGINE [LANTus] (100 UNITS/ML) SYG SC SCH (08:00)
[2019-02-19] MEDS ORDERED: POTASSIUM CHLORIDE 20 MEQ POWDER FOR ORAL SOLN GTB ONE (08:30)
[2019-02-19] MEDS ORDERED: ZINC SULFATE 220 MG CAP GTB SCH (09:00)
[2019-02-19] MEDS ORDERED: ASCORBIC ACID 500 MG TAB GTB SCH (09:00)
[2019-02-19] MEDS ORDERED: FAMOTIDINE 20 MG TAB PEG SCH (09:00)
--- NOTE | 2019-02-19 09:00 | PN ---
DATE: 02/19/2019 SUBJECTIVE: The patient is subjectively stable overnight, was transferred from intensive care unit l ast night, no other events noted. OBJECTIVE: VITAL SIGNS: Blood pressure is 169/76, respirations 16, pulse 77, temperature 97.8. HEENT: Head is normocephalic. NECK: Supple. HEART: Regular rate. LUNGS: Show diminished breath sounds at the base. ABDOMEN: Soft, nontender to palpation without rebound or guarding. EXTREMITIES: Negative for clubbing, cyanosis, no edema. DERMATOLOGIC: No rashes. MUSCULOSKELETAL: No joint effusion. NEUROLOGIC: No change in exam. MEDICATIONS: Have been reviewed. LABORATORY DATA: Has been reviewed. IMAGING STUDIES: Have been reviewed. ASSESSMENT AND PLAN: 1. Nonoliguric acute kidney injury with previous baseline creatinine of 0.5 mg/dL. Etiology of acut e kidney injury is secondary to sepsis, shock. Renal function is improved. Continue current treatme nt plans, supportive care, renally dose all medication. 2. Hypernatremia, improved. Continue free water flushes. 3. Hypokalemia, repleted with potassium chloride. 4. Anemia. Monitor hemoglobin and hematocrit levels. 5. Mineral bone disorder. Continue to monitor calcium and phosphorus levels. 6. Sepsis, status post shock secondary to urinary tract infection. Currently on pressor support. Continue antibiotic therapy. 7. Respiratory failure, status post extubation. Vent settings and ABG was reviewed. Continue to mo nitor. 8. History of hypertension. 9. Diabetes. Continue current insulin regimen. 10. History of Alzheimer dementia. Dictated By: NORBERT WALDROP DO NR/NTS Conf#: [id number] DID#: [id number] CC: GALO WU MD;*EndCC*
[2019-02-19] MEDS: NEUTRA-PHOS 250 MG PACKET GTB SCH (09:10)
[2019-02-19] MEDS: metFORMIN 500 MG TAB PO SCH ×2 (09:10→17:25)
[2019-02-19] MEDS: COLLAGENASE 5 GM (UD JAR) TOP SCH (09:12)
[2019-02-19] MEDS: BALSAM PERU/CASTOR OIL 60 GM TUBE TOP SCH (09:16)
--- NOTE | 2019-02-19 11:20 | CONS ---
Assessment/Plan Assessment/Plan Hospital Course (Demo Recall) No acute changes, tx to ms floor, no fevers Antimicrobials: Zosyn day #5 Indwelling: Spann, right IJ triple-lumen catheter Physical examination: Well-developed fragile elderly woman who is in no distress. Head atraumatic normocephalic neck is supple chest rise symmetrical breath sounds diminished to bases. Heart: S1-S2. Abdomen soft bowel sounds present. Assessment: 1. Resolving sepsis 2. Enterococcal UTI 3. Dementia 4. Pneumonia, resolving 5. Hypertension 6. Diabetes Plan: Remains stable, continue asp precautions, dc abx in am Consultation Date/Type/Reason Admit Date/Time Feb 14, 2019 at 19:18 Initial Consult Date Type of Consult id Date/Time of Note DATE: 02/19/19 TIME: :19 Exam/Review of Systems Exam Vitals Vital Signs Date Temp Pulse Resp B/P (MAP) Pulse Ox O2 O2 Flow FiO2 Time Delivery Rate 02/19/19 97.5 77 16 169/76 99 Room Air 07:54 (107) 02/17/19 3.0 17:37 02/17/19 30 14:20 Intake and Output 02/18/19 02/18/19 02/19/19 1515:00 23:00 07:00 IntakeIntake Total 1190 ml 590 ml OutputOutput Total 1035 ml 400 ml 1600 ml BalanceBalance 155 ml 190 ml -1600 ml Results Result Diagram: 02/19/19 0605 02/19/19 0605 Results 24hrs Laboratory Tests Test 02/18/19 13:26 02/18/19 17:23 02/18/19 21:23 02/19/19 00:49 Bedside Glucose 233 H 181 114 159 Test 02/19/19 05:49 02/19/19 06:05 02/19/19 09:03 Bedside Glucose 161 208 White Blood Count 10.3 Red Blood Count 3.23 L Hemoglobin 9.2 L Hematocrit 29.8 L Mean Corpuscular 92.3 Volume Mean Corpuscular 28.5 L Hemoglobin Mean Corpuscular 30.9 L Hemoglobin Concent Red Cell 14.6 H Distribution Width Platelet Count 311 Mean Platelet Volume 10.8 H Immature 0.600 H Granulocytes % Neutrophils % 77.9 H Lymphocytes % 13.2 L Monocytes % 6.1 Eosinophils % 1.9 Basophils % 0.3 Nucleated Red Blood 0.0 Cells % Immature 0.060 H Granulocytes # Neutrophils # 8.0 H Lymphocytes # 1.4 Monocytes # 0.6 Eosinophils # 0.2 Basophils # 0.0 Nucleated Red Blood 0.0 Cells # Sodium Level 144 Potassium Level 3.4 L Chloride Level 111 H Carbon Dioxide Level 28 Anion Gap 5 Blood Urea Nitrogen 13 Creatinine 0.48 Est Glomerular Filtrat Rate mL/min Glucose Level 187 Calcium Level 8.5 Phosphorus Level 2.5 Magnesium Level 1.7 Medications Medication Current Medications IV Flush (NS 3 ml) 3 ml PER PROTOCOL IV ; Start 02/14/19 at 20:00 Ondansetron HCl (Zofran Inj) 4 mg Q6H PRN IV NAUSEA/VOMITING; Start 02/14/19 at 20:00 Morphine Sulfate (morphine) 2 mg Q4H PRN IV .SEVERE PAIN 7-10; Start 02/14/19 at 20:00 Docusate Sodium (Colace) 100 mg Q12H PRN PO .CONSTIPATION; Start 02/14/19 at 20:00 Diagnostic Test (Pha) (Accu-Chek) 1 ea 02 XX Last administered on 02/15/19at 01:52; Admin Dose 1 EA; Start 02/15/19 at 02:00 Insulin Aspart (Novolog Insulin Pen) NOVOLOG *MILD* ALGORI... Q4 SC Last administered on 02/19/19at 09:12; Admin Dose 2 UNIT; Start 02/14/19 at 21:00 Piperacillin Sod/ Tazobactam Sod 100 ml @ 200 mls/hr Q8H IVPB Last administered on 02/19/19at 09:13; Admin Dose 200 MLS/HR; Start 02/15/19 at 02:00 Miscellaneous Information 1 ea NOTE XX ; Start 02/14/19 at 20:00 Glucose (Glutose) 15 gm Q15M PRN PO DECREASED GLUCOSE; Start 02/14/19 at 20:00 Glucose (Glutose) 22.5 gm Q15M PRN PO DECREASED GLUCOSE; Start 02/14/19 at 20:00 Dextrose (D50w Syringe) 25 ml Q15M PRN IV DECREASED GLUCOSE; Start 02/14/19 at 20:00 Dextrose (D50w Syringe) 50 ml Q15M PRN IV DECREASED GLUCOSE; Start 02/14/19 at 20:00 Glucagon (Glucagen) 1 mg Q15M PRN IM DECREASED GLUCOSE; Start 02/14/19 at 20:00 Glucose (Glutose) 15 gm Q15M PRN BUCCAL DECREASED GLUCOSE; Start 02/14/19 at 20:00 Miscellaneous Information (Pending Santyl Order For Wound Care) This patient slaughter... PRN PRN XX WOUND CARE; Start 02/15/19 at 11:30 Collagenase (Santyl) 1 applic BID TOP Last administered on 02/19/19 09:12; Admin Dose 1 APPLIC; Start 02/16/19 at 21:00 Sodium Phosphate (Neutra-Phos) 250 mg BID GTB Last administered on 02/19/19 09:10; Admin Dose 250 MG; Start 02/17/19 at 09:00 Famotidine (Pepcid) 20 mg DAILY PEG Last administered on 02/19/19 09:10; Admin Dose 20 MG; Start 02/19/19 at 09:00 Ascorbic Acid (Vitamin C) 500 mg DAILY GTB Last administered on 02/19/19 09:10; Admin Dose 500 MG; Start 02/19/19 at 09:00 Zinc Sulfate (Zinc Sulfate) 220 mg DAILY GTB Last administered on 02/19/19 09:10; Admin Dose 220 MG; Start 02/19/19 at 09:00 Insulin Glargine (Lantus) 20 units DAILY@0800 SC Last administered on 02/19/19 09:12; Admin Dose 20 UNITS; Start 02/19/19 at 08:00 Metformin HCl (Glucophage) 500 mg BID WITH MEALS PO Last administered on 02/19/19 09:10; Admin Dose 500 MG; Start 02/18/19 at 17:35 DAILY WOOD NP Feb 19, 2019 11:20
--- NOTE | 2019-02-19 12:22 | CONS ---
Consultation Date/Type/Reason Admit Date/Time Feb 14, 2019 at 19:18 Initial Consult Date Type of Consult Pulmonary/critical care Patient condition remains critical. Still remains ventilator dependent. Patient was given a CPAP trial yesterday, she was not extubated because of persistently poor mental status. Patient however has remained hemodynamically stable. General exam; elderly woman, orally intubated, awake but noncommunicative. Currently in no distress. Date/Time of Note DATE: 02/19/19 TIME: 12:20 24 HR Interval Summary Free Text/Dictation Patient's condition is a stable. Has been transferred to medical floor from ICU. Patient has remained hemodynamically stable. General exam; elderly woman, awake and alert. Currently in no distress. Appropriately responsive. HEENT exam; supple neck, no JVD. No lymphadenopathy. Midline trachea. No thyromegaly. Patient is edentulous. Right IJ central line in place. Chest exam; clear to auscultation. S1-S2 audible, no murmurs. Regular rhythm. Abdomen exam; soft, nondistended. No organomegaly. Bowel sounds audible. G- tube in place. Back exam; sacral dressing in place. Extremity exam; no peripheral edema. [employer] exam; patient awake and responsive appropriately. Assessment and recommendations; 1. Patient admitted with respiratory failure status post extubation, sepsis due to enterococcus UTI with marked overall interval improvement. 2. Acute encephalopathy with interval improvement as well. 3. Chronic dysphagia, status post G-tube placement in the past. Continue current supportive care. Patient responding well to current treatment regimen. Exam/Review of Systems Exam Vitals Vital Signs Date Temp Pulse Resp B/P (MAP) Pulse Ox O2 O2 Flow FiO2 Time Delivery Rate 02/19/19 97.5 77 16 169/76 99 Room Air 07:54 (107) 02/17/19 3.0 17:37 02/17/19 30 14:20 Intake and Output 02/18/19 02/18/19 02/19/19 1515:00 23:00 07:00 IntakeIntake Total 1190 ml 590 ml OutputOutput Total 1035 ml 400 ml 1600 ml BalanceBalance 155 ml 190 ml -1600 ml Results Result Diagram: 02/19/19 0605 02/19/19 0605 Results 24hrs Laboratory Tests Test 02/18/19 13:26 02/18/19 17:23 02/18/19 21:23 02/19/19 00:49 Bedside Glucose 233 H 181 114 159 Test 02/19/19 05:49 02/19/19 06:05 02/19/19 09:03 Bedside Glucose 161 208 White Blood Count 10.3 Red Blood Count 3.23 L Hemoglobin 9.2 L Hematocrit 29.8 L Mean Corpuscular 92.3 Volume Mean Corpuscular 28.5 L Hemoglobin Mean Corpuscular 30.9 L Hemoglobin Concent Red Cell 14.6 H Distribution Width Platelet Count 311 Mean Platelet Volume 10.8 H Immature 0.600 H Granulocytes % Neutrophils % 77.9 H Lymphocytes % 13.2 L Monocytes % 6.1 Eosinophils % 1.9 Basophils % 0.3 Nucleated Red Blood 0.0 Cells % Immature 0.060 H Granulocytes # Neutrophils # 8.0 H Lymphocytes # 1.4 Monocytes # 0.6 Eosinophils # 0.2 Basophils # 0.0 Nucleated Red Blood 0.0 Cells # Sodium Level 144 Potassium Level 3.4 L Chloride Level 111 H Carbon Dioxide Level 28 Anion Gap 5 Blood Urea Nitrogen 13 Creatinine 0.48 Est Glomerular Filtrat Rate mL/min Glucose Level 187 Calcium Level 8.5 Phosphorus Level 2.5 Magnesium Level 1.7 Medications Medication Current Medications IV Flush (NS 3 ml) 3 ml PER PROTOCOL IV ; Start 02/14/19 at 20:00 Ondansetron HCl (Zofran Inj) 4 mg Q6H PRN IV NAUSEA/VOMITING; Start 02/14/19 at 20:00 Morphine Sulfate (morphine) 2 mg Q4H PRN IV .SEVERE PAIN 7-10; Start 02/14/19 at 20:00 Docusate Sodium (Colace) 100 mg Q12H PRN PO .CONSTIPATION; Start 02/14/19 at 20:00 Diagnostic Test (Pha) (Accu-Chek) 1 ea 02 XX Last administered on 02/15/19at 01:52; Admin Dose 1 EA; Start 02/15/19 at 02:00 Insulin Aspart (Novolog Insulin Pen) NOVOLOG *MILD* ALGORI... Q4 SC Last administered on 02/19/19at 09:12; Admin Dose 2 UNIT; Start 02/14/19 at 21:00 Piperacillin Sod/ Tazobactam Sod 100 ml @ 200 mls/hr Q8H IVPB Last administered on 02/19/19 09:13; Admin Dose 200 MLS/HR; Start 02/15/19 at 02:00; Stop 02/19/19 at 23:45 Miscellaneous Information 1 ea NOTE XX ; Start 02/14/19 at 20:00 Glucose (Glutose) 15 gm Q15M PRN PO DECREASED GLUCOSE; Start 02/14/19 at 20:00 Glucose (Glutose) 22.5 gm Q15M PRN PO DECREASED GLUCOSE; Start 02/14/19 at 20:00 Dextrose (D50w Syringe) 25 ml Q15M PRN IV DECREASED GLUCOSE; Start 02/14/19 at 20:00 Dextrose (D50w Syringe) 50 ml Q15M PRN IV DECREASED GLUCOSE; Start 02/14/19 at 20:00 Glucagon (Glucagen) 1 mg Q15M PRN IM DECREASED GLUCOSE; Start 02/14/19 at 20:00 Glucose (Glutose) 15 gm Q15M PRN BUCCAL DECREASED GLUCOSE; Start 02/14/19 at 20:00 Miscellaneous Information (Pending Santyl Order For Wound Care) This patient slaughter... PRN PRN XX WOUND CARE; Start 02/15/19 at 11:30 Collagenase (Santyl) 1 applic BID TOP Last administered on 02/19/19 09:12; Admin Dose 1 APPLIC; Start 02/16/19 at 21:00 Sodium Phosphate (Neutra-Phos) 250 mg BID GTB Last administered on 02/19/19 09:10; Admin Dose 250 MG; Start 02/17/19 at 09:00 Famotidine (Pepcid) 20 mg DAILY PEG Last administered on 02/19/19 09:10; Admin Dose 20 MG; Start 02/19/19 at 09:00 Ascorbic Acid (Vitamin C) 500 mg DAILY GTB Last administered on 02/19/19 09:10; Admin Dose 500 MG; Start 02/19/19 at 09:00 Zinc Sulfate (Zinc Sulfate) 220 mg DAILY GTB Last administered on 02/19/19 09:10; Admin Dose 220 MG; Start 02/19/19 at 09:00 Insulin Glargine (Lantus) 20 units DAILY@0800 SC Last administered on 02/19/19 09:12; Admin Dose 20 UNITS; Start 02/19/19 at 08:00 Metformin HCl (Glucophage) 500 mg BID WITH MEALS PO Last administered on 02/19/19at 09:10; Admin Dose 500 MG; Start 02/18/19 at 17:35 MIGEL VASQUEZ Feb 19, 2019 12:22
[2019-02-19 14:00] VITALS: BP 147/68; PULSE 78; RESP 17
--- NOTE | 2019-02-19 17:11 | DS ---
Date/Time of Note Date/Time of Note DATE: 02/19/19 TIME: 17:10 Discharge Summary Admission/Discharge Info Admit Date/Time Feb 14, 2019 at 19:18 Discharge Date/Time Discharge Diagnosis Septic shock Dementia Patient Condition: Stable Hospital Course The patient presented with septic shock. She was urgently intubated. She was started on vasopressors and broad-spectrum antibiotics. Cultures eventually showed that this infection was secondary to a urinary tract infection sensitive to antibiotics which were prescribed per the ID service. She was able to be extubated and did very well on room air without any symptoms or signs of infection following extubation. She did have an acute kidney injury which resolved nicely during her admission with fluids. She is now being discharged back to her skilled nursing Home Meds Reported Medications Acetaminophen* (Acetaminophen*) 325 Mg Tablet, 650 MG GTB Q6H PRN for MILD PAIN LEVEL 1-3, #30 TAB AND FEVER>101F 02/14/19 Clonidine Hcl* (Clonidine Hcl*) 0.1 Mg Tab, 0.1 MG GTB Q6, TAB 02/14/19 Docusate Sodium* (Docusate Sodium* Liq) 50 Mg/5 Ml Liquid, 10 ML GTB DAILY, ML 02/14/19 Omeprazole* (Omeprazole*) 20 Mg Capsule.dr, 20 MG GTB DAILY, #30 CAP 02/14/19 Ipratropium-Albuterol (Ipratropium-Albuterol) 0.5-3 Mg/3 Ml Ampul.neb, 3 ML INHALATION Q4H PRN for NEEDED, #30 VIAL 02/14/19 Clonidine Patch (CLONIDINE PATCH) Unknown Strength Patch, 1 PATCH TD Q SAT, #4 PATCH.WK 0.1MG/24HR 02/14/19 Lisinopril* (Lisinopril*) 10 Mg Tablet, 10 MG GTB DAILY, #30 TAB 02/14/19 Ascorbic Acid (Vitamin C) 500 Mg Tab, 500 MG GTB DAILY, TAB 02/14/19 Cholecalciferol* (Vitamin D3*) 1,000 Unit Tablet, 1000 UNIT GTB DAILY, TAB 02/14/19 Amlodipine Besylate* (Norvasc*) 5 Mg Tablet, 5 MG GTB BID, TAB HOLD FOR SBP<110 11/06/18 Memantine* (Namenda*) 10 Mg Tablet, 10 MG GTB BID, #60 TAB 11/06/18 Glucagon,Human Recombinant (Glucagon Emergency Kit) 1 Mg Kit, 1 MG IJ NEEDED PRN for FOR GLUCOSE<60MG/DL, KIT 11/06/18 Insulin Detemir (Levemir Flextouch) 100 Unit/1 Ml Insuln.pen, 15 UNIT SQ BID, EA 11/06/18 Gabapentin* (Gabapentin*) 300 Mg Capsule, 300 MG GTB QHS, #60 CAP 11/06/18 Atorvastatin Calcium (Atorvastatin Calcium) 10 Mg Tablet, 10 MG GTB QHS, #30 TAB 11/06/18 Donepezil* (Aricept*) 10 Mg Tablet, 10 MG GTB QPM, TAB 11/06/18 Discontinued Reported Medications Acetaminophen* (Acetaminophen*) 500 MG Extra Strength Tablet, 500 MG PO Q6H PRN for FOR FEVER>101, TAB 11/06/18 Magnesium Hydroxide/Al Hydrox (DAREN-MOX ANTACID SUSPENSION) 355 Ml Oral.susp, 30 ML PO Q6H 11/06/18 Megestrol Acetate* (Megace ES*) Unknown Strength Oral.susp, 10 ML PO BID, ML MEGACE 40MG/ML, STOP DATE 11/29/18 11/06/18 Metformin Hcl* (Metformin Hcl*) 500 Mg Tablet, 250 MG PO WITH BREAKFAST DINNE, #60 TAB 11/06/18 Pantoprazole* (Pantoprazole*) 40 Mg Tablet.dr, 40 MG PO AC BREAKFAST, TAB 11/06/18 Hydralazine Hcl* (Hydralazine Hcl*) 25 Mg Tab, 25 MG PO Q8 PRN for FOR SBP>150, #90 TAB 11/06/18 Ondansetron Hcl* (Zofran*) 4 Mg Tab, 4 MG PO Q4H PRN for NAUSEA AND OR VOMITING, TAB 11/06/18 Dextran 70/Hypromellose/Pf (ARTIFICIAL TEARS DROPS) 1 Each Droperette, 1 EACH OP Q12H 11/06/18 Metoprolol Tartrate* (Lopressor*) 25 Mg Tab, 25 MG PO BID, #60 TAB HOLD IF SBP<120 OR HR<60 11/06/18 Cholecalciferol (Vitamin D3) 5,000 Unit Tablet, 5000 UNIT PO DAILY, TAB 11/06/18 Multivitamin with Minerals (Multivitamins with Minerals) 1 Each Tablet, 1 EACH PO DAILY, TAB 11/06/18 Folic Acid* (Folic Acid*) 1 Mg Tablet, 1 MG PO DAILY, TAB 11/06/18 Ferrous Sulfate* (Ferrous Sulfate*) 325 Mg Tabec, 325 MG PO DAILY, TAB 11/06/18 Cranberry Fruit Concentrate (CRANBERRY) 450 Mg Capsule, 405 MG PO DAILY, CAP 11/06/18 Docusate Sodium* (Colace*) 100 Mg Capsule, 100 MG PO DAILY, #30 CAP 11/06/18 Aspirin* (Aspirin* EC) 81 Mg Tablet.dr, 81 MG PO DAILY, TAB 11/06/18 Primary Care Provider Luciana Zavala MD Pending Labs Laboratory Tests Test 02/18/19 17:23 02/18/19 21:23 02/19/19 00:49 02/19/19 05:49 Bedside 181 114 159 161 Glucose mg/dL (70-220) mg/dL (70-220) mg/dL (70-220) mg/dL (70-220) Test 02/19/19 06:05 02/19/19 09:03 02/19/19 12:45 White Blood 10.3 Count 10^3/ul (4.8-10 .8) Red Blood 3.23 Count 10^6/ul (4.20-5 .40) Hemoglobin 9.2 g/dl (12.0-16.0 ) Hematocrit 29.8 % (37.0-47.0) Mean 92.3 Corpuscular fl (82.0-101.0) Volume Mean 28.5 Corpuscular pg (29.0-33.0) Hemoglobin Mean 30.9 Corpuscular g/dl (32.0-37.0 Hemoglobin Conc ) ent Red Cell 14.6 Distribution % (11.5-14.5) Width Platelet Count 311 10^3/UL (140-41 5) Mean Platelet 10.8 Volume fl (7.4-10.4) Immature 0.600 Granulocytes % % (0.001-0.429) Neutrophils % 77.9 % (39.0-77.0) Lymphocytes % 13.2 % (15.0-51.0) Monocytes % 6.1 % (0.0-11.0) Eosinophils % 1.9 % (0.0-7.0) Basophils % 0.3 % (0.0-2.0) Nucleated Red 0.0 Blood Cells % /100WBC (0.0-0. 0) Immature 0.060 Granulocytes # 10^3/ul (0.0-0. 031) Neutrophils # 8.0 10^3/ul (1.6-7. 5) Lymphocytes # 1.4 10^3/ul (0.8-2. 9) Monocytes # 0.6 10^3/ul (0.3-0. 9) Eosinophils # 0.2 10^3/ul (0.0-0. 5) Basophils # 0.0 10^3/ul (0.0-0. 1) Nucleated Red 0.0 Blood Cells # 10^3/ul (0.0-0. 0) Sodium Level 144 mmol/L (135-144 ) Potassium 3.4 Level mmol/L (3.5-5.1 ) Chloride Level 111 mmol/L (97-110) Carbon Dioxide 28 Level mmol/L (21-31) Anion Gap 5 (5-13) Blood Urea 13 mg/dl (7-20) Nitrogen Creatinine 0.48 mg/dl (0.44-1.0 0) Est Glomerular mL/min (>60) Filtrat Rate mL/min Glucose Level 187 mg/dl (70-220) Calcium Level 8.5 mg/dl (8.4-10.2 ) Phosphorus 2.5 Level mg/dl (2.5-4.9) Magnesium 1.7 Level mg/dl (1.7-2.5) Bedside 208 219 Glucose mg/dL (70-220) mg/dL (70-220) JANINE BETHEA MD Feb 19, 2019 17:11
[2019-02-19 20:00] VITALS: BP 129/53; PULSE 78; RESP 18
== END 2019-02-19 21:53 | DRG 871 ==
LOC: E/R 17:09 → ICU 19:18 → PP2 02-18 18:44
PROVIDERS: ADMIT Internal Medicine; ATTEND Internal Medicine
PROC: 02HV33Z Insertion of Infusion Device into Superior Vena Cava, Percutaneous Approach (ICD-10-PCS; principal; 2019-02-14)
PROC: 5A1945Z Respiratory Ventilation, 24-96 Consecutive Hours (ICD-10-PCS; 2019-02-14)
PROC: 0BH18EZ Insertion of Endotracheal Airway into Trachea, Via Natural or Artificial Opening Endoscopic (ICD-10-PCS; 2019-02-14)
DX: A41.9 Sepsis, unspecified organism (principal); R65.21 Severe sepsis with septic shock; J96.01 Acute respiratory failure with hypoxia; G93.41 Metabolic encephalopathy; J18.9 Pneumonia, unspecified organism; E87.0 Hyperosmolality and hypernatremia; N17.9 Acute kidney failure, unspecified; N39.0 Urinary tract infection, site not specified; E86.0 Dehydration; G30.9 Alzheimer's disease, unspecified; F02.80 Dementia in other diseases classified elsewhere, unspecified severity, without behavioral disturbance, psychotic disturbance, mood disturbance, and anxiety; D64.9 Anemia, unspecified; I10 Essential (primary) hypertension; E87.6 Hypokalemia; E11.51 Type 2 diabetes mellitus with diabetic peripheral angiopathy without gangrene; L89.150 Pressure ulcer of sacral region, unstageable; B95.2 Enterococcus as the cause of diseases classified elsewhere; Z93.1 Gastrostomy status; Z79.4 Long term (current) use of insulin
CPT/HCPCS: 31500; 36415; 36600; 70450; 71045; 76775; 76937; 80048; 80053; 81001; 81003; 82043; 82803; 82962; 83036; 83605; 83735; 83935; 84100; 84155; 84300; 84484; 85025; 85610; 85730; 87081; 87086; 93005; 94002; 94003; 94770; 96365; 96368; C9113; J0692; J1815; J2543; J3370; J7030

== ENCOUNTER 2019-04-12 06:56 | Inpatient (IN) | payer MEDICARE, OTHER ==
[~2019-04-12] VITALS: Ht 160 cm; Wt 53.5 kg
[~2019-04-12 06:56] MED LIST changes: -ACET-141 PO; +ACET325T45 GTB; +ASC500 GTB; -ASPI-817 PO; +CHOL100062 GTB; -CHOL500010 PO; +CLON-379 GTB; +CLON1PAT2 TD; -CRAN450C PO; -DEXT1DRO7 OP; -DOCU-144 PO; +DOCU50LI23 GTB; -ETOMIDATE 20 MG INJ ONE; -FER325 PO; -FOLI-49 PO; -HYDR-3671 PO; +IPRA3AMP29 INHALATION; +LISI10TA2 GTB; -MEGE625O PO; +METF500T24 GTB; -METF500T24 PO; -METO-448 PO; -MULT-105 PO; +MULTI GTB; +OMEP20CA17 GTB; -ONDA4TAB13 PO; -PANT40TA4 PO; -ROCURONIUM 50 MG INJ ONE; -[UNRECOGNIZED DRUG - CODE] PO
[2019-04-12] MEDS ORDERED: SODIUM CHLORIDE 0.9% 1L BAG IV* STA (07:00)
[2019-04-12] MEDS ORDERED: ACETAMINOPHEN 325 MG TAB PO STA (07:00)
[2019-04-12] MEDS ORDERED: CEFEPIME 2GM/50 ML (PMX) 50 ML IVPB STA (07:00)
[2019-04-12] MEDS ORDERED: NA BICARBONATE 8.4% 50 ML SYG IV STA (08:24)
[2019-04-12] MEDS ORDERED: CALCIUM GLUCONATE 10% 1 GM in DEXTROSE 5% 100 ML IVPB ONE (08:30)
[2019-04-12] MEDS ORDERED: ACCU-CHEK XX ONE (08:30)
[2019-04-12] MEDS ORDERED: INSULIN LISPRO 100 UNIT/ML VIAL SC ONE (08:30)
[2019-04-12] MEDS ORDERED: morphine 2 MG INJ IV PRN (09:30)
[2019-04-12] MEDS ORDERED: ONDANSETRON 4 MG INJ IV PRN ×2 (09:30)
[2019-04-12] MEDS ORDERED: ACETAMINOPHEN 325 MG TAB PO PRN ×2 (09:30)
[2019-04-12] MEDS ORDERED: BISACODYL 10 MG SUPP PR PRN (09:30)
[2019-04-12] MEDS ORDERED: MAGNESIUM HYDROXIDE 30ML CUP PO PRN (09:30)
[2019-04-12] MEDS ORDERED: NACL 0.9% 3 ML SYG IV SCH (09:30)
[2019-04-12] MEDS ORDERED: ALBUTEROL/IPRATROPIUM (NEB) 3 ML AMP INH PRN (09:30)
[2019-04-12] MEDS ORDERED: DOCUSATE SODIUM 100 MG CAP PO PRN (09:30)
[2019-04-12] MEDS ORDERED: GLUCOSE GEL 15 GRAM TUBE PO PRN ×2 (10:00)
[2019-04-12] MEDS ORDERED: DEXTROSE 50% 50 ML SYRINGE IV PRN ×2 (10:00)
[2019-04-12] MEDS ORDERED: GLUCOSE GEL 15 GRAM TUBE BUCCAL PRN (10:00)
[2019-04-12] MEDS ORDERED: GLUCAGON 1 MG INJ IM PRN (10:00)
[2019-04-12] MEDS: SOD CHLORIDE 0.9% 1,000 ML IV SCH ×2 (10:45→21:22)
[2019-04-12] MEDS: INSULIN ASPART [NOVOLOG] 3 ML PEN SC SCH ×3 (12:53→21:49)
[2019-04-12] MEDS ORDERED: VANCOMYCIN IV PER PHARMACY XX SCH (13:00)
[2019-04-12] MEDS ORDERED: CEFEPIME 2GM/50 ML (PMX) 50 ML IVPB SCH (13:30)
[2019-04-12] MEDS ORDERED: VANCOMYCIN 1 GM 250 ML IVPB SCH (14:00)
[2019-04-12] MEDS: GABAPENTIN 300 MG CAP GTB SCH (21:00)
[2019-04-12] MEDS: DONEPEZIL 10 MG TAB GTB SCH (21:00)
[2019-04-12] MEDS: ATORVASTATIN 10 MG TAB GTB SCH (21:00)
[2019-04-12] MEDS: AMLODIPINE 5 MG TAB GTB SCH (21:00)
[2019-04-12] MEDS: MEMANTINE 10 MG TAB GTB SCH (21:00)
[2019-04-12 21:27] VITALS: Ht 160 cm; Wt 53.5 kg
[2019-04-12] MEDS: HEPARIN 5,000 UNIT/1 ML VIAL SC SCH (21:41)
[2019-04-12 23:53] VITALS: BP 102/53; PULSE 99; RESP 18
[2019-04-13] VITALS (49 sets, daily range): BP systolic 54–130; BP diastolic 30–80; PULSE 58–181; RESP 16–52
[2019-04-13] MEDS: INSULIN ASPART [NOVOLOG] 3 ML PEN SC SCH ×6 (01:41→21:03)
[2019-04-13] MEDS: ACCU-CHEK XX SCH (01:42)
[2019-04-13] MEDS ORDERED: PENDING SANTYL ORDER FOR WOUND CARE XX PRN (04:00)
[2019-04-13] MEDS: PANTOPRAZOLE 40 MG INJ IV SCH (05:14)
[2019-04-13] MEDS ORDERED: CEFEPIME 2GM/50 ML (PMX) 50 ML IVPB SCH (06:00)
[2019-04-13] MEDS ORDERED: ETOMIDATE 20 MG INJ ONE (07:00)
[2019-04-13] MEDS: AMLODIPINE 5 MG TAB GTB SCH ×2 (09:00→20:49)
[2019-04-13] MEDS ORDERED: LISINOPRIL 10 MG TAB GTB SCH (09:00)
[2019-04-13] MEDS: DOCUSATE SODIUM 10 MG/ML (10ML CUP) GTB SCH (09:21)
[2019-04-13] MEDS: SOD CHLORIDE 0.45% 1,000 ML IV SCH ×2 (09:21→15:50)
[2019-04-13] MEDS: ASCORBIC ACID 500 MG TAB GTB SCH (09:22)
[2019-04-13] MEDS: MEMANTINE 10 MG TAB GTB SCH ×2 (09:22→21:00)
[2019-04-13] MEDS: CHOLECALCIFEROL 1,000 UNIT TAB GTB SCH (09:22)
[2019-04-13] MEDS: HEPARIN 5,000 UNIT/1 ML VIAL SC SCH ×2 (09:48→21:01)
[2019-04-13] MEDS: INSULIN GLARGINE [LANTus] (100 UNITS/ML) SYG SC SCH (11:03)
[2019-04-13] MEDS ORDERED: COLLAGENASE 5 GM (UD JAR) TOP PRN (12:30)
[2019-04-13] MEDS ORDERED: LEVALBUTEROL (NEB) 0.63 MG/3 ML AMP HHN SCH (14:00)
[2019-04-13] MEDS ORDERED: METHYLPREDNISOLONE 125 MG INJ IV ONE (14:00)
[2019-04-13] MEDS ORDERED: LEVALBUTEROL (NEB) 0.63 MG/3 ML AMP HHN PRN (14:00)
[2019-04-13] MEDS ORDERED: FENTAnyl 50 MCG/ML VIAL IV ONE (14:30)
[2019-04-13] MEDS ORDERED: ETOMIDATE 20 MG INJ IV ONE (14:30)
[2019-04-13] MEDS ORDERED: SUCCINYLCHOLINE CHLORIDE 100 MG/5 ML SYG IV ONE (14:30)
[2019-04-13] MEDS ORDERED: NORepinephrine 8MG/250 ML (PMX 250 ML ONE (14:51)
[2019-04-13] MEDS ORDERED: LACTATED RINGER'S 1,000 ML IV ONE (15:00)
[2019-04-13] MEDS ORDERED: NORepinephrine 8MG/250 ML (PMX 250 ML IV SCH (15:00)
[2019-04-13] MEDS: FENTAnyl (DRIP) 1000 mcg/100mL 100 ML IV SCH (17:20)
[2019-04-13] MEDS: DILTIAZEM-D5W 125MG/125ML DRIP 125 ML IV SCH (18:19)
[2019-04-13] MEDS ORDERED: PHENYLephrine 20MG IN 250 ML 250 ML IV SCH (18:30)
[2019-04-13] MEDS ORDERED: DILTIAZEM 25 MG INJ IV ONE (18:30)
[2019-04-13] MEDS ORDERED: PHENYLephrine 80 MG in SOD CHLORIDE 0.9% 250 ML IV SCH (19:00)
[2019-04-13] MEDS: PHENYLephrine 80 MG in DEXTROSE 5% 242 ML IV SCH (20:52)
[2019-04-13] MEDS: DONEPEZIL 10 MG TAB GTB SCH (21:00)
[2019-04-13] MEDS: MEROPENEM 1 GM/50ML(PMX) 50 ML IVPB SCH (21:00)
[2019-04-13] MEDS: ATORVASTATIN 10 MG TAB GTB SCH (21:00)
[2019-04-13] MEDS: GABAPENTIN 300 MG CAP GTB SCH (21:00)
[2019-04-13] MEDS: LEVALBUTEROL (HFA) 15 GM INHALER INH SCH (21:18)
[2019-04-14] VITALS (98 sets, daily range): BP systolic 83–132; BP diastolic 36–60; PULSE 77–119; RESP 15–29
[2019-04-14] MEDS: INSULIN ASPART [NOVOLOG] 3 ML PEN SC SCH ×6 (00:55→21:36)
[2019-04-14] MEDS: DILTIAZEM-D5W 125MG/125ML DRIP 125 ML IV SCH (01:34)
[2019-04-14] MEDS: LEVALBUTEROL (HFA) 15 GM INHALER INH SCH ×4 (01:41→19:30)
[2019-04-14] MEDS: FENTAnyl (DRIP) 1000 mcg/100mL 100 ML IV SCH ×2 (01:58→09:51)
[2019-04-14] MEDS: ACCU-CHEK XX SCH (02:00)
[2019-04-14] MEDS: VANCOMYCIN 750 MG (PMX) 250 ML IVPB SCH (05:00)
[2019-04-14] MEDS: PANTOPRAZOLE 40 MG INJ IV SCH (05:21)
[2019-04-14] MEDS: SOD CHLORIDE 0.45% 1,000 ML IV SCH ×2 (05:21→23:23)
[2019-04-14] MEDS: AMLODIPINE 5 MG TAB GTB SCH ×2 (09:00→20:27)
[2019-04-14] MEDS: MEMANTINE 10 MG TAB GTB SCH ×2 (09:56→20:26)
[2019-04-14] MEDS: CHOLECALCIFEROL 1,000 UNIT TAB GTB SCH (09:56)
[2019-04-14] MEDS: DOCUSATE SODIUM 10 MG/ML (10ML CUP) GTB SCH (09:56)
[2019-04-14] MEDS: MEROPENEM 1 GM/50ML(PMX) 50 ML IVPB SCH ×2 (09:56→20:26)
[2019-04-14] MEDS: ASCORBIC ACID 500 MG TAB GTB SCH (09:56)
[2019-04-14] MEDS: INSULIN GLARGINE [LANTus] (100 UNITS/ML) SYG SC SCH (10:51)
[2019-04-14] MEDS: PHENYLephrine 80 MG in DEXTROSE 5% 242 ML IV SCH (12:10)
[2019-04-14] MEDS ORDERED: VANCOMYCIN 750 MG (PMX) 250 ML IVPB SCH (14:00)
[2019-04-14] MEDS ORDERED: DIGOXIN 500 MCG INJ IV ONE (20:00)
[2019-04-14] MEDS: DONEPEZIL 10 MG TAB GTB SCH (20:25)
[2019-04-14] MEDS: GABAPENTIN 300 MG CAP GTB SCH (20:26)
[2019-04-14] MEDS: ATORVASTATIN 10 MG TAB GTB SCH (20:26)
[2019-04-14] MEDS: APIXABAN 5 MG TABLET PO SCH (20:26)
[2019-04-15] VITALS (81 sets, daily range): BP systolic 90–144; BP diastolic 42–90; PULSE 54–84; RESP 12–18
[2019-04-15] MEDS: INSULIN ASPART [NOVOLOG] 3 ML PEN SC SCH ×3 (00:49→08:12)
[2019-04-15] MEDS: LEVALBUTEROL (HFA) 15 GM INHALER INH SCH ×4 (01:06→19:30)
[2019-04-15] MEDS: ACCU-CHEK XX SCH ×16 (02:00→23:58)
[2019-04-15] MEDS ORDERED: DIGOXIN 500 MCG INJ IV ONE ×2 (04:00)
[2019-04-15] MEDS: FENTAnyl (DRIP) 1000 mcg/100mL 100 ML IV SCH (05:49)
[2019-04-15] MEDS ORDERED: LANSOPRAZOLE (SOLTAB) 30 MG TAB GTB SCH (06:00)
[2019-04-15] MEDS: ASCORBIC ACID 500 MG TAB GTB SCH (08:05)
[2019-04-15] MEDS: MEROPENEM 1 GM/50ML(PMX) 50 ML IVPB SCH ×2 (08:05→20:20)
[2019-04-15] MEDS: CHOLECALCIFEROL 1,000 UNIT TAB GTB SCH (08:05)
[2019-04-15] MEDS: MEMANTINE 10 MG TAB GTB SCH ×2 (08:06→20:20)
[2019-04-15] MEDS: APIXABAN 5 MG TABLET PO SCH ×2 (08:06→20:20)
[2019-04-15] MEDS: AMLODIPINE 5 MG TAB GTB SCH ×2 (08:10→20:20)
[2019-04-15] MEDS: INSULIN GLARGINE [LANTus] (100 UNITS/ML) SYG SC SCH (08:11)
[2019-04-15] MEDS: DOCUSATE SODIUM 10 MG/ML (10ML CUP) GTB SCH (08:12)
[2019-04-15] MEDS ORDERED: DEXTROSE 50% 50 ML SYRINGE IV PRN ×2 (10:30)
[2019-04-15] MEDS ORDERED: INSULIN HUMAN REGULAR 100 UNIT in SOD CHLORIDE 0.9% 99 ML IV SCH (11:30)
[2019-04-15] MEDS ORDERED: SOD CHLORIDE 0.9% 250 ML IV* ONE (12:48)
[2019-04-15] MEDS ORDERED: CASPOFUNGIN 70 MG in SOD CHLORIDE 0.9% 250 ML IVPB ONE ×2 (13:00→14:30)
[2019-04-15] MEDS ORDERED: DIGOXIN 500 MCG INJ IV SCH (13:00)
[2019-04-15] MEDS ORDERED: CASPOFUNGIN 50 MG in SOD CHLORIDE 0.9% 250 ML IVPB SCH (13:00)
[2019-04-15] MEDS: DIGOXIN 0.125 MG TAB PO SCH (13:00)
[2019-04-15] MEDS: SOD CHLORIDE 0.45% 1,000 ML IV SCH (14:35)
[2019-04-15] MEDS: VANCOMYCIN 750 MG (PMX) 250 ML IVPB SCH (16:55)
[2019-04-15] MEDS: LANSOPRAZOLE 15 MG GTB SCH (17:48)
[2019-04-15] MEDS: DONEPEZIL 10 MG TAB GTB SCH (20:20)
[2019-04-15] MEDS: ATORVASTATIN 10 MG TAB GTB SCH (20:20)
[2019-04-15] MEDS: GABAPENTIN 300 MG CAP GTB SCH (20:21)
[2019-04-16] VITALS (57 sets, daily range): BP systolic 97–129; BP diastolic 39–76; PULSE 66–100; RESP 12–29
[2019-04-16] MEDS: LEVALBUTEROL (HFA) 15 GM INHALER INH SCH ×4 (01:26→19:59)
[2019-04-16] MEDS: ACCU-CHEK XX SCH ×23 (01:30→23:38)
[2019-04-16] MEDS: SOD CHLORIDE 0.45% 1,000 ML IV SCH (02:40)
[2019-04-16] MEDS: LANSOPRAZOLE 15 MG GTB SCH ×2 (05:30→18:53)
[2019-04-16] MEDS: MEMANTINE 10 MG TAB GTB SCH ×2 (08:00→20:41)
[2019-04-16] MEDS ORDERED: INSULIN GLARGINE [LANTus] (100 UNITS/ML) SYG SC SCH (08:00)
[2019-04-16] MEDS: ASCORBIC ACID 500 MG TAB GTB SCH (08:00)
[2019-04-16] MEDS: CHOLECALCIFEROL 1,000 UNIT TAB GTB SCH (08:01)
[2019-04-16] MEDS: DOCUSATE SODIUM 10 MG/ML (10ML CUP) GTB SCH (08:01)
[2019-04-16] MEDS: APIXABAN 5 MG TABLET PO SCH ×2 (08:01→20:41)
[2019-04-16] MEDS: MEROPENEM 1 GM/50ML(PMX) 50 ML IVPB SCH ×2 (08:01→20:41)
[2019-04-16] MEDS: AMLODIPINE 5 MG TAB GTB SCH ×2 (08:01→20:42)
[2019-04-16] MEDS: BALSAM PERU/CASTOR OIL 60 GM TUBE TOP SCH ×2 (09:00→20:52)
[2019-04-16] MEDS: DAKINS 0.0125%(1/40) 473 ML SOLUTION TP SCH ×2 (10:12→21:00)
[2019-04-16] MEDS: DIGOXIN 0.125 MG TAB PO SCH (13:03)
[2019-04-16] MEDS: CASPOFUNGIN 50 MG in SOD CHLORIDE 0.9% 250 ML IVPB SCH (14:50)
[2019-04-16] MEDS: DONEPEZIL 10 MG TAB GTB SCH (20:41)
[2019-04-16] MEDS: ATORVASTATIN 10 MG TAB GTB SCH (20:41)
[2019-04-16] MEDS: GABAPENTIN 300 MG CAP GTB SCH (20:42)
[2019-04-17] VITALS (56 sets, daily range): BP systolic 92–150; BP diastolic 43–81; PULSE 78–96; RESP 16–24
[2019-04-17] MEDS: ACCU-CHEK XX SCH ×24 (01:21→23:30)
[2019-04-17] MEDS: FENTAnyl (DRIP) 1000 mcg/100mL 100 ML IV SCH ×2 (01:24→11:40)
[2019-04-17] MEDS: LEVALBUTEROL (HFA) 15 GM INHALER INH SCH ×4 (01:44→20:46)
[2019-04-17] MEDS: VANCOMYCIN 750 MG (PMX) 250 ML IVPB SCH (04:49)
[2019-04-17] MEDS: LANSOPRAZOLE 15 MG GTB SCH ×2 (06:02→18:16)
[2019-04-17] MEDS: DOCUSATE SODIUM 10 MG/ML (10ML CUP) GTB SCH (09:00)
[2019-04-17] MEDS: POLYETHYLENE GLYCOL 17 GM PACKET NGT SCH ×2 (09:00→21:16)
[2019-04-17] MEDS: AMLODIPINE 5 MG TAB GTB SCH ×2 (09:20→21:15)
[2019-04-17] MEDS: MEMANTINE 10 MG TAB GTB SCH ×2 (09:20→21:30)
[2019-04-17] MEDS: NEUTRA-PHOS 250 MG PACKET NGT SCH ×2 (09:20→21:16)
[2019-04-17] MEDS: ASCORBIC ACID 500 MG TAB GTB SCH (09:20)
[2019-04-17] MEDS: MEROPENEM 1 GM/50ML(PMX) 50 ML IVPB SCH ×2 (09:21→21:18)
[2019-04-17] MEDS: CHOLECALCIFEROL 1,000 UNIT TAB GTB SCH (09:21)
[2019-04-17] MEDS: APIXABAN 5 MG TABLET PO SCH ×2 (09:21→21:16)
[2019-04-17] MEDS: BALSAM PERU/CASTOR OIL 60 GM TUBE TOP SCH ×2 (09:21→21:18)
[2019-04-17] MEDS: DAKINS 0.0125%(1/40) 473 ML SOLUTION TP SCH ×2 (10:20→21:18)
[2019-04-17] MEDS: DIGOXIN 0.125 MG TAB GTB SCH (13:49)
[2019-04-17] MEDS: CASPOFUNGIN 50 MG in SOD CHLORIDE 0.9% 250 ML IVPB SCH (14:15)
[2019-04-17] MEDS: ATORVASTATIN 10 MG TAB GTB SCH (21:15)
[2019-04-17] MEDS: DONEPEZIL 10 MG TAB GTB SCH (21:15)
[2019-04-17] MEDS: GABAPENTIN 300 MG CAP GTB SCH (21:16)
[2019-04-18] VITALS (37 sets, daily range): BP systolic 96–163; BP diastolic 38–63; PULSE 67–100; RESP 11–29
[2019-04-18] MEDS: ACCU-CHEK XX SCH ×9 (00:30→08:41)
[2019-04-18] MEDS: LEVALBUTEROL (HFA) 15 GM INHALER INH SCH ×3 (01:24→14:00)
[2019-04-18] MEDS: FENTAnyl (DRIP) 1000 mcg/100mL 100 ML IV SCH (06:04)
[2019-04-18] MEDS: LANSOPRAZOLE 15 MG GTB SCH ×2 (06:35→17:44)
[2019-04-18] MEDS: DOCUSATE SODIUM 10 MG/ML (10ML CUP) GTB SCH (08:07)
[2019-04-18] MEDS: POLYETHYLENE GLYCOL 17 GM PACKET NGT SCH ×2 (08:08→21:58)
[2019-04-18] MEDS: MEMANTINE 10 MG TAB GTB SCH ×2 (08:11→21:58)
[2019-04-18] MEDS: AMLODIPINE 5 MG TAB GTB SCH ×2 (08:12→21:58)
[2019-04-18] MEDS: NEUTRA-PHOS 250 MG PACKET NGT SCH ×2 (08:12→21:43)
[2019-04-18] MEDS: DAKINS 0.0125%(1/40) 473 ML SOLUTION TP SCH ×2 (08:12→21:45)
[2019-04-18] MEDS: ASCORBIC ACID 500 MG TAB GTB SCH (08:12)
[2019-04-18] MEDS: APIXABAN 5 MG TABLET PO SCH ×2 (08:12→21:44)
[2019-04-18] MEDS: BALSAM PERU/CASTOR OIL 60 GM TUBE TOP SCH ×2 (08:12→21:45)
[2019-04-18] MEDS: CHOLECALCIFEROL 1,000 UNIT TAB GTB SCH (08:12)
[2019-04-18] MEDS: MEROPENEM 1 GM/50ML(PMX) 50 ML IVPB SCH ×2 (08:13→21:43)
[2019-04-18] MEDS: INSULIN ASPART [NOVOLOG] 3 ML PEN SC SCH ×4 (08:57→21:00)
[2019-04-18] MEDS ORDERED: GLUCAGON 1 MG INJ IM PRN (09:00)
[2019-04-18] MEDS ORDERED: DEXTROSE 50% 50 ML SYRINGE IV PRN ×2 (09:00)
[2019-04-18] MEDS ORDERED: GLUCOSE GEL 15 GRAM TUBE BUCCAL PRN (09:00)
[2019-04-18] MEDS ORDERED: GLUCOSE GEL 15 GRAM TUBE PO PRN ×2 (09:00)
[2019-04-18] MEDS: INSULIN GLARGINE [LANTus] (100 UNITS/ML) SYG SC SCH (10:04)
[2019-04-18] MEDS: DIGOXIN 0.125 MG TAB GTB SCH (12:21)
[2019-04-18] MEDS: CASPOFUNGIN 50 MG in SOD CHLORIDE 0.9% 250 ML IVPB SCH (15:12)
[2019-04-18] MEDS: VANCOMYCIN 750 MG (PMX) 250 ML IVPB SCH (16:50)
[2019-04-18] MEDS: LEVALBUTEROL (NEB) 0.63 MG/3 ML AMP HHN SCH (19:56)
[2019-04-18] MEDS: DONEPEZIL 10 MG TAB GTB SCH (21:43)
[2019-04-18] MEDS: GABAPENTIN 300 MG CAP GTB SCH (21:43)
[2019-04-18] MEDS: ATORVASTATIN 10 MG TAB GTB SCH (21:58)
[2019-04-19] VITALS (24 sets, daily range): BP systolic 95–133; BP diastolic 38–58; PULSE 77–95; RESP 13–26
[2019-04-19] MEDS: INSULIN ASPART [NOVOLOG] 3 ML PEN SC SCH ×5 (01:00→16:47)
[2019-04-19] MEDS: LEVALBUTEROL (NEB) 0.63 MG/3 ML AMP HHN SCH ×4 (02:03→19:53)
[2019-04-19] MEDS: PANTOPRAZOLE 40 MG INJ IV SCH (06:00)
[2019-04-19] MEDS: LANSOPRAZOLE 15 MG GTB SCH ×2 (06:00→17:21)
[2019-04-19] MEDS: MEMANTINE 10 MG TAB GTB SCH ×2 (08:08→21:20)
[2019-04-19] MEDS: NEUTRA-PHOS 250 MG PACKET NGT SCH ×2 (08:08→21:20)
[2019-04-19] MEDS: APIXABAN 5 MG TABLET PO SCH ×2 (08:08→21:21)
[2019-04-19] MEDS: AMLODIPINE 5 MG TAB GTB SCH ×2 (08:08→21:20)
[2019-04-19] MEDS: CHOLECALCIFEROL 1,000 UNIT TAB GTB SCH (08:08)
[2019-04-19] MEDS: ASCORBIC ACID 500 MG TAB GTB SCH (08:08)
[2019-04-19] MEDS: BALSAM PERU/CASTOR OIL 60 GM TUBE TOP SCH ×2 (08:09→21:21)
[2019-04-19] MEDS: MEROPENEM 1 GM/50ML(PMX) 50 ML IVPB SCH ×2 (08:09→21:19)
[2019-04-19] MEDS: DAKINS 0.0125%(1/40) 473 ML SOLUTION TP SCH ×2 (08:09→21:21)
[2019-04-19] MEDS: INSULIN GLARGINE [LANTus] (100 UNITS/ML) SYG SC SCH (08:10)
[2019-04-19] MEDS: POLYETHYLENE GLYCOL 17 GM PACKET NGT SCH ×2 (08:11→21:00)
[2019-04-19] MEDS: DOCUSATE SODIUM 10 MG/ML (10ML CUP) GTB SCH (08:11)
[2019-04-19] MEDS: DIGOXIN 0.125 MG TAB GTB SCH (12:29)
[2019-04-19] MEDS: CASPOFUNGIN 50 MG in SOD CHLORIDE 0.9% 250 ML IVPB SCH (13:54)
[2019-04-19] MEDS: ATORVASTATIN 10 MG TAB GTB SCH (21:20)
[2019-04-19] MEDS: GABAPENTIN 300 MG CAP GTB SCH (21:20)
[2019-04-19] MEDS: DONEPEZIL 10 MG TAB GTB SCH (21:20)
[2019-04-19] MEDS ORDERED: INSULIN ASPART [NOVOLOG] 3 ML PEN SC ONE (22:00)
[2019-04-20] VITALS: BP 119/44; PULSE 86; RESP 22
[2019-04-20 01:18] VITALS: BP 124/60; PULSE 88; RESP 16
[2019-04-20] MEDS: LEVALBUTEROL (NEB) 0.63 MG/3 ML AMP HHN SCH ×4 (01:38→19:59)
[2019-04-20] MEDS: INSULIN ASPART [NOVOLOG] 3 ML PEN SC SCH ×6 (02:26→21:38)
[2019-04-20] MEDS: PANTOPRAZOLE 40 MG INJ IV SCH (06:05)
[2019-04-20] MEDS: LANSOPRAZOLE 15 MG GTB SCH (06:09)
[2019-04-20 07:52] VITALS: BP 115/58; PULSE 94; RESP 18
[2019-04-20] MEDS ORDERED: INSULIN GLARGINE [LANTus] (100 UNITS/ML) SYG SC SCH (08:00)
[2019-04-20] MEDS: CHOLECALCIFEROL 1,000 UNIT TAB GTB SCH (08:38)
[2019-04-20] MEDS: APIXABAN 5 MG TABLET PO SCH ×2 (08:38→21:21)
[2019-04-20] MEDS: ASCORBIC ACID 500 MG TAB GTB SCH (08:38)
[2019-04-20] MEDS: MEMANTINE 10 MG TAB GTB SCH ×2 (08:38→21:18)
[2019-04-20] MEDS: MEROPENEM 1 GM/50ML(PMX) 50 ML IVPB SCH ×2 (08:39→21:26)
[2019-04-20] MEDS: DOCUSATE SODIUM 10 MG/ML (10ML CUP) GTB SCH (08:39)
[2019-04-20] MEDS: POLYETHYLENE GLYCOL 17 GM PACKET NGT SCH ×2 (08:39→21:26)
[2019-04-20] MEDS: AMLODIPINE 5 MG TAB GTB SCH ×2 (08:39→21:20)
[2019-04-20] MEDS: NEUTRA-PHOS 250 MG PACKET NGT SCH ×2 (08:39→21:18)
[2019-04-20] MEDS: BALSAM PERU/CASTOR OIL 60 GM TUBE TOP SCH ×2 (08:43→21:28)
[2019-04-20] MEDS: DAKINS 0.0125%(1/40) 473 ML SOLUTION TP SCH ×2 (08:44→21:28)
[2019-04-20 14:16] VITALS: BP 147/68; PULSE 93; RESP 20
[2019-04-20] MEDS: DIGOXIN 0.125 MG TAB GTB SCH (14:22)
[2019-04-20 19:57] VITALS: BP 124/56; PULSE 92; RESP 18
[2019-04-20 21:10] VITALS: BP 117/58; PULSE 97
[2019-04-20] MEDS: DONEPEZIL 10 MG TAB GTB SCH (21:18)
[2019-04-20] MEDS: ATORVASTATIN 10 MG TAB GTB SCH (21:20)
[2019-04-20] MEDS: GABAPENTIN 300 MG CAP GTB SCH (21:20)
[2019-04-21] MEDS: INSULIN ASPART [NOVOLOG] 3 ML PEN SC SCH ×2 (01:19→05:51)
[2019-04-21 01:21] VITALS: BP 120/51; PULSE 88; RESP 19
[2019-04-21] MEDS: LEVALBUTEROL (NEB) 0.63 MG/3 ML AMP HHN SCH (02:22)
[2019-04-21] MEDS: PANTOPRAZOLE 40 MG INJ IV SCH (05:42)
[2019-04-21 07:54] VITALS: BP 97/36; PULSE 114; RESP 18
== END 2019-04-21 08:49 | disposition expired | DRG 870 ==
LOC: E/R 06:56 → TEL 09:15 → ICU 04-13 14:01 → 2NE 04-20 00:43
PROVIDERS: ADMIT Hospitalist; ATTEND Hospitalist
PROC: 5A1955Z Respiratory Ventilation, Greater than 96 Consecutive Hours (ICD-10-PCS; principal; 2019-04-13)
PROC: 0BH17EZ Insertion of Endotracheal Airway into Trachea, Via Natural or Artificial Opening (ICD-10-PCS; 2019-04-13)
PROC: 02HV33Z Insertion of Infusion Device into Superior Vena Cava, Percutaneous Approach (ICD-10-PCS; 2019-04-13)
PROC: 30233N1 Transfusion of Nonautologous Red Blood Cells into Peripheral Vein, Percutaneous Approach (ICD-10-PCS; 2019-04-15)
DX: A41.9 Sepsis, unspecified organism (principal); L89.893 Pressure ulcer of other site, stage 3; J96.01 Acute respiratory failure with hypoxia; J69.0 Pneumonitis due to inhalation of food and vomit; G92 Toxic encephalopathy; L89.154 Pressure ulcer of sacral region, stage 4; N17.9 Acute kidney failure, unspecified; E87.0 Hyperosmolality and hypernatremia; N39.0 Urinary tract infection, site not specified; E87.2 Acidosis; R65.20 Severe sepsis without septic shock; B96.4 Proteus (mirabilis) (morganii) as the cause of diseases classified elsewhere; D63.8 Anemia in other chronic diseases classified elsewhere; D50.9 Iron deficiency anemia, unspecified; Z66 Do not resuscitate; E11.51 Type 2 diabetes mellitus with diabetic peripheral angiopathy without gangrene; E87.5 Hyperkalemia; E11.65 Type 2 diabetes mellitus with hyperglycemia; E11.22 Type 2 diabetes mellitus with diabetic chronic kidney disease; E11.42 Type 2 diabetes mellitus with diabetic polyneuropathy; E78.5 Hyperlipidemia, unspecified; G30.9 Alzheimer's disease, unspecified; F02.80 Dementia in other diseases classified elsewhere, unspecified severity, without behavioral disturbance, psychotic disturbance, mood disturbance, and anxiety; I48.0 Paroxysmal atrial fibrillation; I10 Essential (primary) hypertension; L89.620 Pressure ulcer of left heel, unstageable; R13.10 Dysphagia, unspecified; Z89.511 Acquired absence of right leg below knee; Z93.1 Gastrostomy status; Z79.4 Long term (current) use of insulin
CPT/HCPCS: 31500; 36430; 36600; 71045; 73610; 74018; 76775; 80048; 80053; 80061; 80202; 81001; 81003; 82043; 82270; 82803; 82962; 83036; 83605; 83735; 84100; 84155; 84300; 84436; 84443; 84479; 84484; 85014; 85018; 85025; 85610; 85730; 86850; 86900; 86901; 86920; 87070; 87081; 87086; 93005; 93306; 94002; 94003; 94640; 94664; 94770; 96361; 96365; 96372; 96375; 96376; C1751; C9113; G0463; J0610; J0692; J1644; J1815; J2185; J2370; J2930; J3010; J3370; J7030; J7040; J7050; J7070; J7120; P9016